=== PATIENT | female | born 1980 | race Caucasian/White ===

== ENCOUNTER 2021-09-10 14:06 | Outpatient (REF) | payer MEDICAID, SELFPAY ==
--- NOTE | ~2021-09-10 | XR_ITS ---
EXAMINATION: XR FOOT, RIGHT CLINICAL INFORMATION: Pain in right foot COMPARISON: None TECHNIQUE: AP, lateral, and oblique views of the right foot. FINDINGS: Alignment of the right foot is normal. A posterior calcaneal spur is seen at the insertion of the Achilles tendon. Mild narrowing of the first MTP joint with a small periarticular calcification. No erosions. Mild deformity at the head of the fifth proximal phalanx laterally with a possible small erosion. No other focal findings identified. XR/XR foot RT min 3V IMPRESSION: Mild degenerative changes are seen at the first MTP joint and possible small erosion at the lateral margin of the fifth proximal phalanx distally. No acute osseous findings are seen.
== END 2021-09-10 14:07 | disposition home or self-care (01) ==
LOC: HO.XRAY 14:06
PROVIDERS: PCP Internal Medicine; Visit Provider Internal Medicine
DX: M79.671 Pain in right foot (principal)
CPT/HCPCS: 73630

== ENCOUNTER 2021-11-25 12:27 | Outpatient (REF) | payer MEDICAID, SELFPAY ==
--- NOTE | ~2021-11-25 | MM_ITS ---
EXAMINATION: MM SCREENING DIGITAL BREAST TOMOSYNTHESIS, BILATERAL CLINICAL INFORMATION: Screening. Asymptomatic. The lifetime risk of breast cancer based on the Tyrer-Cuzick Model is 21.9%. Additional annual screening with breast MRI may be of benefit in women with a score of 20% or greater. COMPARISON: Mammography: None TECHNIQUE: Digital breast tomosynthesis is performed in both the craniocaudal and mediolateral oblique views along with computer-aided detection (CAD). Synthesized 2D images are generated from the tomosynthesis. FINDINGS: The breasts are heterogeneously dense, which may obscure small masses (ACR BI-RADS breast composition Category c). No abnormal mass or grouping of calcifications about the right breast is identified. In the retroareolar region of the left breast is question of poorly marginated asymmetry for which spot compression view and possible ultrasound is recommended. This likely represents superimposition of fibroglandular tissue. MM/MM tomosynthesis screening BI IMPRESSION: Left retroareolar density for further evaluation as described. ASSESSMENT: BI-RADS 0: Incomplete - Need Additional Imaging Evaluation RECOMMENDATION: 1. Additional views of the left breast 2. Targeted ultrasound if warranted after review of the additional views. 3. Radiology department staff will contact the patient for additional imaging. This patient's information was entered into a reminder system with a target due date for their next mammogram.
== END 2021-11-25 12:28 | disposition home or self-care (01) ==
LOC: HO.MAMMO 12:27
PROVIDERS: PCP Advanced Practice Midwife; Visit Provider Advanced Practice Midwife
DX: Z12.31 Encounter for screening mammogram for malignant neoplasm of breast (principal)
CPT/HCPCS: 77063; 77067

== ENCOUNTER 2021-11-26 22:37 | Emergency (ER) | payer MEDICAID, SELFPAY ==
[2021-11-26 22:52] VITALS: BP 128/79; PULSE 78; RESP 20; TEMP 36.1; O2SAT 97; BMI 33.0
[2021-11-27 00:38] LABS: COVID-19 Test Positive (Negative)
--- NOTE | 2021-11-27 00:48 | ED.URI ---
HPI - URI/Sore Throat General Chief Complaint: Upper Respiratory Symptoms Stated Complaint: Covid symptoms Source: patient Mode of arrival: ambulatory Limitations: no limitations History of Present Illness HPI Narrative: 41-year-old female presents with upper respiratory symptoms. Requesting COVID-19 testing. MD elicited complaint: cough and nasal congestion Onset (ago): day(s) Consistency: constant Severity: mild Description of mucous: clear Able to tolerate fluids by mouth: Yes Exacerbating factors: nothing Relieving factors: nothing Context: sick contacts Associated symptoms: chills, myalgias, headache, rhinorrhea, nasal congestion and cough Treatments prior to arrival: none Related Data Allergies Allergy/AdvReac Type Severity Reaction Status Date / Time No Known Allergies Allergy Verified 11/26/21 23:02 Review of Systems Review of Systems: Constitutional: positive Fever, positive Chills, positive fatigue, positive Malaise ENT/Mouth: positive sore throat, positive runny nose Eyes: No Discharge Cardiovascular: No Chest Pain, No SOB Respiratory: Positive Cough, No Sputum, No Wheezing, No Smoke Exposure, No Dyspnea Gastrointestinal: No Nausea, No Vomiting, No Diarrhea Genitourinary: no irregular bleeding, No Dysuria, No Urinary Frequency, No Hematuria, No Urinary Incontinence, No Urgency, No Flank Pain, Musculoskeletal: positive Myalgia Skin: No rash Neuro: Positive Headache Yes all other systems are reviewed and are negative FOR[facility]LY [facility] Past Medical History Attestation statement: The following information was validated with the patient. Source: old records reviewed Social History Social History Advance Directives: No Advance Directives Information Provided: No Physical Exam Vital Signs: Vital Signs: Last Vital Signs Temp 97.0 F 11/26/21 22:52 Pulse 78 11/26/21 22:52 Resp 20 11/26/21 22:52 BP 128/79 11/26/21 22:52 Pulse Ox 97 11/26/21 22:52 BMI result Body Mass Index 33.0 Appearance: Alert. Oriented X3. No acute distress. Eyes: Pupils equal, round and reactive to light. EOMI. Sclera nonicteric. ENT: Pharynx normal. Moist mucous membranes. Neck: Normal inspection. Neck supple. CVS: Normal heart rate and rhythm. Pulses normal. Respiratory: No respiratory distress. Breath sounds normal. Abdomen: Soft and nontender. Skin: Skin warm and dry. Normal skin color. Normal skin turgor. Extremities: No lower extremity edema. Gait well-balanced well coordinated. Neuro: No motor deficit. No sensory deficit. Cranial nerves 2-12 intact. Course Course Course Narrative: 41-year-old female presents with upper respiratory symptoms requesting COVID-19 testing. I evaluated this patient while she was in the emergency department waiting room. Even unlabored respirations, vital signs are stable and within normal limits. O2 sat 97% on room air. COVID-19 test is positive. Patient verbalized understanding of and agrees to plan of care discharge home. MDM - URI/Sore Throat Differential Diagnosis Differential diagnosis: Likely upper respiratory infection, sinusitis, viral infection, bronchitis, influenza and pharyngitis Medical Records Attestation: I reviewed the patient's medical records. Lab Data Attestation: I reviewed the patient's lab results. Labs: Lab Results 11/27/21 Range/Units 00:24 COVID-19 ([facility]) Positive A (Negative) COVID-19 Clin Com See Note Discharge Plan Discharge Clinical Impression: COVID-19 Patient Disposition: Home, Self-Care Instructions: Covid-19 Viral Syndrome and Novel Coronavirus (ED) Hey/Ath, COVID-19 (Coronavirus Disease 2019) (ED) Additional Instructions: You tested positive for COVID-19. Please maintain social isolation per State and Federal guidelines. Please take Tylenol 650 mg every 6 hours and Motrin 600 mg every 6 hours as needed for pain management and fever control. Please write down what time to take these medications to prevent accidental overdose. Thank you for choosing this emergency department for evaluation. Please follow-up with primary care physician as needed. Return to the emergency department for any new, concerning, or worsening symptoms. Stand Alone Forms: Work/School Release
== END 2021-11-27 01:21 | disposition home or self-care (01) ==
PROVIDERS: Emergency Provider Student in an Organized Health Care Education/Training Program; PCP Internal Medicine
DX: U07.1 COVID-19 (principal)
CPT/HCPCS: 87635; 99283

== ENCOUNTER 2021-12-23 11:03 | Outpatient (REF) | payer MEDICAID, SELFPAY ==
--- NOTE | ~2021-12-23 | MM_ITS ---
EXAMINATION: MM DIAGNOSTIC DIGITAL BREAST TOMOSYNTHESIS, LEFT CLINICAL INFORMATION: Recall from baseline exam for question of focal asymmetric density retroareolar left breast. TC score 22%. COMPARISON: Mammography: 11/25/2021 (baseline). TECHNIQUE: Digital breast tomosynthesis is performed. 2D images are generated from the tomosynthesis. The following views are obtained: Spot CC, spot MLO. FINDINGS: There are scattered areas of fibroglandular density (ACR BI-RADS breast composition Category b). Breast tissue composition borders on heterogeneously dense. The additional views show no underlying asymmetric density, mass, architectural abnormality. No focal duct ectasia. Results are discussed with the patient and her at time of visit. MM/MM tomosynthesis added views L IMPRESSION: No mammographic evidence of malignancy. ASSESSMENT: BI-RADS 1: Negative RECOMMENDATION: 1. Routine annual mammography screening. 2. The lifetime risk of breast cancer based on the Tyrer-Cuzick Model is 22%. Additional annual adjunct screening with breast MRI may be of benefit in women with a risk score of 20% or greater. This patient's information was entered into a reminder system with a target due date for their next mammogram.
== END 2021-12-23 11:04 | disposition home or self-care (01) ==
LOC: HO.MAMMO 11:03
PROVIDERS: Visit Provider Internal Medicine
DX: R92.2 Inconclusive mammogram (principal)
CPT/HCPCS: 77061; 77065

== ENCOUNTER → 2022-08-02 13:05 | Outpatient (BNVA) | payer MEDICAID, SELFPAY | PROVIDERS: PCP Internal Medicine; Referring Provider Internal Medicine; Visit Provider Nurse Practitioner | DX: R19.7 Diarrhea, unspecified (principal); K21.9 Gastro-esophageal reflux disease without esophagitis; R10.10 Upper abdominal pain, unspecified | CPT/HCPCS: 99202 ==

== ENCOUNTER 2022-08-19 14:18 | Outpatient (REF) | payer MEDICAID, SELFPAY ==
[2022-08-19 14:34] LABS: MANUAL DIFF FLAG NO
[2022-08-19 15:06] LABS: Basophils Percent Auto 0.1 % (0-2); Eosinophils Absolute Auto 0.1 X10*3/uL (0.0-0.4); Eosinophils Percent Auto 1.5 % (0-4); Hematocrit 42.1 % (37.0-47.0); Imm Gran Abs Auto 0.02 X10*3/uL (0.00-0.03); Imm Gran Pct Auto 0.3 % (0.0-0.4); Lymphocytes Absolute Auto 3.6 X10*3/uL (1.2-4.9); Lymphocytes Percent Auto 44.6 % (20-40); Mean Corpuscular HGB Conc 33.3 g/dl (31.0-35.0); Mean Corpuscular Hemoglobin 30.2 pg (27.0-33.0); Mean Corpuscular Volume 90.7 fL (80.0-98.0); Monocytes Absolute Auto 0.5 X10*3/uL (0.1-1.2); Monocytes Percent Auto 6.5 % (2-11); Neutrophils Absolute Auto 3.8 x10*3/uL (2.0-8.3); Platelet Count 208 X10*3/uL (160-400); Red Blood Count 4.64 X10*6/uL (4.20-5.50); Red Cell Distribution Width 12.3 % (11.0-16.0)
[2022-08-19 15:28] LABS: Alanine Aminotransferase 20 U/L (0-31); Albumin Level 4.7 g/dL (3.5-5.0); Alkaline Phosphatase 70 U/L (39-117); Anion Gap 16 (12-20); Aspartate Amino Transferase 24 U/L (5-31); Bilirubin Total 0.3 mg/dL (0.0-1.0); Blood Urea Nitrogen 12 mg/dL (9-16); C Reactive Protein 0.28 mg/dL (< or = 0.50); Calcium 9.9 mg/dL (8.4-10.2); Carbon Dioxide 24 mmol/L (22-29); Chloride 103 mmol/L (96-108); Estimated Glomerular Filt Rate > 60; Glucose Random 94 mg/dL (60-115); Potassium 3.7 mmol/L (3.3-5.1); Sodium 139 mmol/L (135-145); Total Protein 8.1 g/dL (6.5-8.0)
[2022-08-19 15:45] LABS: TSH reflex Free T4 0.99 uIU/mL (0.32-4.0)
[2022-08-26 08:22] LABS: Transglutaminase IgA <1.0 U/mL
== END 2022-08-19 14:19 | disposition home or self-care (01) ==
LOC: HO.LAB 14:18
PROVIDERS: PCP Internal Medicine; Visit Provider Nurse Practitioner
DX: R19.7 Diarrhea, unspecified (principal)
CPT/HCPCS: 36415; 80053; 84443; 85025; 86140; 86364; 87338

== ENCOUNTER → 2022-08-26 15:27 | Outpatient (BNVA) | payer MEDICAID, SELFPAY | PROVIDERS: PCP Internal Medicine; Visit Provider Nurse Practitioner | DX: R19.7 Diarrhea, unspecified (principal); K21.9 Gastro-esophageal reflux disease without esophagitis; R10.10 Upper abdominal pain, unspecified | CPT/HCPCS: 99212 ==

== ENCOUNTER → 2022-09-23 15:31 | Outpatient (BNVA) | payer MEDICAID, SELFPAY | PROVIDERS: PCP Internal Medicine; Visit Provider Nurse Practitioner | DX: K21.9 Gastro-esophageal reflux disease without esophagitis (principal); R19.7 Diarrhea, unspecified; R10.13 Epigastric pain | CPT/HCPCS: 99212 ==

== ENCOUNTER 2022-11-28 12:46 | Outpatient (REF) | payer MEDICAID, SELFPAY ==
--- NOTE | ~2022-11-28 | MM_ITS ---
EXAMINATION: MM SCREENING DIGITAL BREAST TOMOSYNTHESIS, BILATERAL CLINICAL INFORMATION: Screening. Asymptomatic. The lifetime risk of breast cancer based on the Tyrer-Cuzick Model is 29.8%. Additional annual screening with breast MRI may be of benefit in women with a score of 20% or greater. COMPARISON: Mammography: December 23, 2021 and November 25, 2021 TECHNIQUE: Digital breast tomosynthesis is performed in both the craniocaudal and mediolateral oblique views along with computer-aided detection (CAD). Synthesized 2D images are generated from the tomosynthesis. FINDINGS: The breasts are heterogeneously dense, which may obscure small masses (ACR BI-RADS breast composition Category c). There are no significant masses, abnormal calcifications, or other abnormalities. MM/MM tomosynthesis screening BI IMPRESSION: No significant changes from prior exam. ASSESSMENT: BI-RADS 1: Negative RECOMMENDATION: Routine annual mammography screening. Consider screening breast MRI. This patient's information was entered into a reminder system with a target due date for their next mammogram.
== END 2022-11-28 12:47 | disposition home or self-care (01) ==
LOC: HO.MAMMO 12:46
PROVIDERS: PCP Internal Medicine; Visit Provider Advanced Practice Midwife
DX: Z12.31 Encounter for screening mammogram for malignant neoplasm of breast (principal)
CPT/HCPCS: 77063; 77067

== ENCOUNTER 2023-02-27 13:47 | Outpatient (REF) | payer MEDICAID, SELFPAY ==
--- NOTE | ~2023-02-27 | MR_ITS ---
EXAMINATION: MR SHOULDER WITHOUT CONTRAST, RIGHT CLINICAL INFORMATION: Right shoulder pain COMPARISON: None available. TECHNIQUE: MRI of the shoulder without contrast was performed on a high-field scanner. FINDINGS: ROTATOR CUFF: Intact. No muscle atrophy or fatty infiltration. BICEPS: Normal. CORACOACROMIAL ARCH: The undersurface of the acromion is curved with a subacromial spur. Mild acromioclavicular osteoarthritis. LABRUM/CAPSULE: Normal. GLENOHUMERAL JOINT/MARROW: No joint effusion or focal articular cartilage defect. There is a nonaggressive appearing lesion of the humeral metaphysis measuring 2.6 x 2.2 x 2.9 cm. This is heterogeneously T2 hyperintense with stippled foci of low signal and a circumscribed, lobulated border with no surrounding marrow edema or other aggressive imaging features. The appearance is typical of an enchondroma. MR/MR shoulder RT wo con IMPRESSION: 1. No rotator cuff tear. 2. Small subacromial spur. 3. Mild acromioclavicular osteoarthritis. 4. There is a 2.9 cm low-grade chondroid lesion/enchondroma of the proximal humerus with no aggressive imaging features.
== END 2023-02-27 13:48 | disposition home or self-care (01) ==
LOC: HO.MRI 13:47
PROVIDERS: PCP Internal Medicine; Visit Provider Internal Medicine
DX: M25.511 Pain in right shoulder (principal); G89.29 Other chronic pain
CPT/HCPCS: 73221

== ENCOUNTER 2024-02-12 12:34 | Outpatient (REF) | payer MEDICAID, SELFPAY ==
--- NOTE | ~2024-02-12 | MM_ITS ---
EXAMINATION: MM SCREENING DIGITAL BREAST TOMOSYNTHESIS, BILATERAL CLINICAL INFORMATION: Screening. Asymptomatic. COMPARISON: Mammography: This study is compared with prior exams dating back to 2021. TECHNIQUE: Digital breast tomosynthesis is performed in both the craniocaudal and mediolateral oblique views along with computer-aided detection (CAD). Synthesized 2D images are generated from the tomosynthesis. FINDINGS: The breasts are heterogeneously dense, which may obscure small masses (ACR BI-RADS breast composition Category c). There are no significant masses, abnormal calcifications, or other abnormalities. MM/MM tomosynthesis screening BI IMPRESSION: No mammographic evidence of malignancy. ASSESSMENT: BI-RADS BI-RADS 1 - Negative RECOMMENDATION: Routine annual mammography screening. 1 year F/U This examination should not preclude the clinical evaluation of a suspicious palpable abnormality. This patient's information was entered into a reminder system with a target due date for their next mammogram.
== END 2024-02-12 12:35 | disposition home or self-care (01) ==
LOC: HO.MAMMO 12:34
PROVIDERS: PCP Internal Medicine; Visit Provider Internal Medicine
DX: Z12.31 Encounter for screening mammogram for malignant neoplasm of breast (principal)
CPT/HCPCS: 77063; 77067

== ENCOUNTER → 2024-02-12 13:00 | Outpatient (BNV) | payer MEDICAID, SELFPAY | PROVIDERS: PCP Internal Medicine; Visit Provider Radiology Diagnostic Radiology | DX: Z12.31 Encounter for screening mammogram for malignant neoplasm of breast (principal) | CPT/HCPCS: 77063; 77067 ==

== ENCOUNTER 2024-06-21 14:32 | Outpatient (REF) | payer MEDICAID, SELFPAY ==
[2024-06-21 15:40] LABS: MANUAL DIFF FLAG NO
[2024-06-21 16:15] LABS: Basophils Percent Auto 0.2 % (0-2); Eosinophils Absolute Auto 0.4 X10*3/uL (0.0-0.4); Eosinophils Percent Auto 4.1 % (0-4); Hematocrit 41.9 % (37.0-47.0); Hemoglobin 13.9 g/dl (12.0-16.0); Imm Gran Abs Auto 0.04 X10*3/uL (0.00-0.03); Imm Gran Pct Auto 0.4 % (0.0-0.4); Lymphocytes Absolute Auto 3.6 X10*3/uL (1.2-4.9); Lymphocytes Percent Auto 37.7 % (20-40); Mean Corpuscular HGB Conc 33.2 g/dl (31.0-35.0); Mean Corpuscular Hemoglobin 29.6 pg (27.0-33.0); Mean Corpuscular Volume 89.1 fL (80.0-98.0); Mean Platelet Volume 9.4 fL (9.4-12.3); Monocytes Absolute Auto 0.7 X10*3/uL (0.1-1.2); Monocytes Percent Auto 7.5 % (2-11); Neutrophils Absolute Auto 4.8 x10*3/uL (2.0-8.3); Neutrophils Percent Auto 50.1 % (45-73); Platelet Count 239 X10*3/uL (160-400); Red Cell Distribution Width 12.1 % (11.0-16.0); White Blood Count 9.5 X10*3/uL (4.8-10.8)
[2024-06-21 16:40] LABS: Alanine Aminotransferase 27 U/L (0-31); Albumin Level 4.5 g/dL (3.5-5.0); Alkaline Phosphatase 65 U/L (39-117); Anion Gap 14 (12-20); Aspartate Amino Transferase 25 U/L (5-31); Bilirubin Total 0.3 mg/dL (0.0-1.0); Blood Urea Nitrogen 16 mg/dL (9-16); Calcium 10.4 mg/dL (8.4-10.2); Carbon Dioxide 24 mmol/L (22-29); Chloride 107 mmol/L (96-108); Estimated Glomerular Filt Rate > 60; Glucose Random 106 mg/dL (60-115); Potassium 4.2 mmol/L (3.3-5.1); Sodium 141 mmol/L (135-145)
== END 2024-06-21 14:33 | disposition home or self-care (01) ==
LOC: HO.LAB 14:32
PROVIDERS: PCP Internal Medicine; Visit Provider Nurse Practitioner
DX: Z01.818 Encounter for other preprocedural examination (principal); K21.9 Gastro-esophageal reflux disease without esophagitis; R19.7 Diarrhea, unspecified; R10.10 Upper abdominal pain, unspecified
CPT/HCPCS: 36415; 80053; 85025; 99212

== ENCOUNTER 2024-06-21 14:32 | Outpatient (AMB) | payer MEDICAID, SELFPAY ==
--- NOTE | 2024-06-21 14:34 | MHC.OFFVIS ---
Vital Signs 06/21/24 14:42 Height 5 ft 6 in Weight 228 lb BMI 36.8 BP 141/83 H Blood Pressure Location Lt brachial Position Sitting Pulse 80 Intake Visit Reasons: Follow Up Diarrhea Intake Note: Marianne presents to in office visit today in follow up of diarrhea. CC: Patient states that she has not been able to come to her appointments because she first had a shoulder injury and last year she fell and fractured her left foot. She has been having a lot of pain and taking ibuprofen, Excedrin, and gabapentin. She states that she is doing worst from stomach d/t taking so m any medications for pain. 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 Allergies sulfamethoxazole [From Bactrim] Allergy (Severe, Verified 08/08/24 10:12) rash trimethoprim [From Bactrim] Allergy (Severe, Verified 08/08/24 10:12) rash acetaminophen [From Percocet] Adverse Reaction (Severe, Verified 08/08/24 10:12) Fainting naproxen Adverse Reaction (Severe, Verified 08/08/24 10:12) abdominal pain omeprazole Adverse Reaction (Severe, Verified 08/08/24 10:12) Diarrhea oxycodone [From Percocet] Adverse Reaction (Severe, Verified 08/08/24 10:12) Fainting septra Allergy (Severe, Uncoded 08/08/24 10:12) rash HPI HPI Follow Up Diarrhea: Details: Assessment & Plan (1) GERD (gastroesophageal reflux disease): ?Code(s): K21.9 - Gastro-esophageal reflux disease without esophagitis ?Plan: She continues to do well on her pantoprazole. 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 I reprint it for her. We were to go over the RAST panel, but it is not found in the computer. I will have my staff look in to this. ROV 3 mos. (2) Diarrhea: ?Comment: She may have been in response to omeprazole as well as some other variables ?Code(s): R19.7 - Diarrhea, unspecified (3) Upper abdominal pain: ?Code(s): R10.10 - Upper abdominal pain, unspecified TODAY'S VISIT She had a dislocated shoulder last visit and she fell in the middle of the night and fx her left ankle. She has had to take motrin for her ankle and this is upsetting her stomach. Bowels still frequent but not fecal incontinence, no CIC. Still has to take excedrin for migraines. Will get EGD to check. Asthma well controlled and some hx of bradycardia in response to some medications. NO ID problems. NO FHX of known stomach cancer or esophageal cancer. Will increase protonix to bid and add carafate 1 tab q noon. ROV 6 weeks. PFSH Medical History Heart murmur Migraine COVID-19 Surgical History (Updated 08/08/24 @ 10:15 by Mariza Mcneill RN) Hx of dilation and curettage Hx of tubal ligation History of ear surgery Family History Family/Other Breast cancer Maternal Grandmother Ovarian cancer Father Heart abnormality Social History Are you a primary medical care evaluation specialist to a significant other at home: No Do you presently have visiting nurse or other home services: No Alcohol intake: never Patient Tobacco Use Status: Never used Tobacco Have you been hit, kicked, punched, or otherwise hurt by someone within the past year? If so, by whom?: No Are you DNR?: No Advance Directives: No Advance Directives Information Provided: Yes Recently lost weight without trying: No Nutrition Risks: No Nutritional Risk Review of Systems Const Denies fatigue, Denies fever(s), Denies night sweats, Denies poor appetite, Reports weight gain and Denies weight loss ENT Reports Normal hearing present, Denies dental pain, Denies dysphagia, Denies hearing loss, Denies mouth pain, Denies odynophagia, Denies throat swelling, Denies tongue swelling and Reports other (Dentition adequate) Card Reports no additional complaints Resp Reports no additional complaints GI Details: Reports abdominal pain, Denies melena, Denies bloating, Denies hematochezia, Denies constipation, Denies GI cramping, Denies dysphagia, Denies excessive flatus, Denies early satiety, Reports heartburn, Reports diarrhea, Reports loose stools, Denies nausea, Denies odynophagia, Denies vomiting and Denies hematemesis Skin/Breast Denies pruritus, Denies lesions, Denies rash and Denies jaundice Neuro Reports Normal hearing present and Denies Abnormal speech present Endo Denies fatigue Aller/Immun Denies throat swelling and Denies tongue swelling Physical Exam Vital Signs: Last Vital Signs Pulse 80 06/21/24 14:42 BP 141/83 H 06/21/24 14:42 BMI result Body Mass Index 36.8 Const General: cooperative, no acute distress, well developed and well groomed Nutritional Appearance: well nourished and obese Orientation/consciousness: oriented to person, oriented to place and oriented to time Limitations: No language barrier HEENT Head: Yes normocephalic and Yes atraumatic Eyes General: appearance normal, both eyes and all related structures Pupils: Equal, round and reactive pupils present Neck Neck: Yes normal visual inspection and Yes no lymphadenopathy Thyroid: Thyroid normal Resp Effort & Inspection: normal respiratory effort and able to speak in complete sentences Auscultation: clear to auscultation bilaterally Cardio Rate: regular rate Rhythm: regular rhythm Heart sounds: Normal, physiologic split S2 sound present Peripheral pulses: radial pulses present and posterior tibial pulses present GI Inspection: No distended, No Abdominal panniculus present and Yes obesity Palpation (GI): Soft to palpation, nontender, no guarding, not rigid and No hepatosplenomegaly present Percussion: Yes normal to percussion Auscultation: normal bowel sounds Rectal Exam - Female: deferred Skin General skin exam: no rashes or lesions noted, turgor normal, skin not dry, no jaundice, No spider nevi and no striae Rashes: no rashes Nails: normal Neuro General: oriented to person, oriented to place and oriented to time Cranial nerves: Yes Equal, round and reactive pupils present and Yes Normal hearing present Speech: No Abnormal speech present Extrem General: Yes normal to inspection, No clubbing, No cyanosis and No edema Psych Appearance: grossly normal and well kempt Mental Status: mental status grossly normal Speech and movement: Normal speech and movement present Affect: normal affect Attitude: cooperative Thought process: Normal thought process present and not confabulating Thought content: Normal thought content present Insight: Limited insight present (Psych) Judgement: Limited judgement present (Psych) Assessment & Plan Assessment & Plan (1) GERD (gastroesophageal reflux disease): Code(s): K21.9 - Gastro-esophageal reflux disease without esophagitis Category: Medical (2) Diarrhea: Comment: She may have been in response to omeprazole as well as some other variables Code(s): R19.7 - Diarrhea, unspecified Category: Medical (3) Upper abdominal pain: Code(s): R10.10 - Upper abdominal pain, unspecified Category: Medical (4) Pre-op examination: Code(s): Z01.818 - Encounter for other preprocedural examination Category: Medical Plan She had a dislocated shoulder last visit and she fell in the middle of the night and fx her left ankle. She has had to take motrin for her ankle and this is upsetting her stomach. Bowels still frequent but not fecal incontinence, no CIC. Still has to take excedrin for migraines. Will get EGD to check. Asthma well controlled and some hx of bradycardia in response to some medications. NO ID problems. NO FHX of known stomach cancer or esophageal cancer. Will increase protonix to bid and add carafate 1 tab q noon. ROV 6 weeks. Orders: Orders EGD - GI Use Only 06/21/24 R10.10 - Upper abdominal pain, unspecified, K21.9 - Gastro-esophageal reflux disease without esophagitis Comprehensive Met. Panel 06/21/24 Z01.818 - Encounter for other preprocedural examination Complete Blood Count Auto Diff 06/21/24 Z.818 - Encounter for other preprocedural examination Medications: New sucralfate (Carafate) 1 g PO QNOON 30 tabs 3RF Refilled pantoprazole 40 mg PO BID 60 tabs 6RF K21.9 - Gastro-esophageal reflux disease without esophagitis Coding Level of Care Code Est Pt Level 4 (22119) Diagnoses GERD (gastroesophageal reflux disease) K21.9 Diarrhea R19.7 Upper abdominal pain R10.10 Pre-op examination Z01.8
[2024-06-21 14:42] VITALS: BP 141/83; PULSE 80; BMI 36.8
== END 2024-06-21 15:20 | disposition home or self-care (01) ==
PROVIDERS: PCP Internal Medicine; Visit Provider Nurse Practitioner
DX: K21.9 Gastro-esophageal reflux disease without esophagitis (principal); R19.7 Diarrhea, unspecified; R10.10 Upper abdominal pain, unspecified; Z01.818 Encounter for other preprocedural examination
CPT/HCPCS: 99214

== ENCOUNTER 2024-08-08 09:11 | Day surgery (SDC) | payer OTHER, SELFPAY ==
[2024-08-08 09:40] VITALS: BMI 37.7
--- NOTE | 2024-08-08 09:46 | P.CONAN_ITS ---
PENDING SALE TO [facility] Active Problems Active Problems: All Active Problems Pre-op examination (Acute) Upper abdominal pain (Acute) Diarrhea (Acute) Hard of hearing (Acute) Obesity (Acute) GERD (gastroesophageal reflux disease) (Acute) Allergic rhinitis (Acute) Asthma (Acute) Past Medical History Medical History COVID-19 Heart murmur Migraine Family History Family History Family/Other Breast cancer Maternal Grandmother Ovarian cancer Father Heart abnormality Family history of problems with anesthesia: No Surgical History Surgical History History of ear surgery History of Problems with Anesthesia: No Social History Social History Alcohol intake: never Patient Tobacco Use Status: Never used Tobacco Advance Directives: No Advance Directives Information Provided: Yes Meds Allergies Allergy/AdvReac Type Severity Reaction Status Date / Time sulfamethoxazole Allergy Severe rash Verified 06/21/24 15:00 [From Bactrim] trimethoprim [From Bactrim] Allergy Severe rash Verified 06/21/24 15:00 acetaminophen [From Percocet] AdvReac Severe Fainting Verified 06/21/24 15:00 naproxen AdvReac Severe abdominal Verified 06/21/24 15:00 pain omeprazole AdvReac Severe Diarrhea Verified 06/21/24 15:00 oxycodone [From Percocet] AdvReac Severe Fainting Verified 06/21/24 15:00 septra Allergy Severe rash Uncoded 08/02/22 13:17 Active Medications: Current Medications Naloxone HCl (Naloxone Hcl 0.4 Mg/Ml Vial) 0.04 mg IVPUSH Q5M PRN PRN Reason: Excessive sedation or RR < 8 Home Medications ?Medication ?Instructions ?Recorded ?Confirmed ?Last Taken ?Type albuterol sulfate 90 mcg/actuation 2 puff inhalation Q4-6H PRN 08/02/22 Unknown History aerosol inhaler (ProAir HFA) loratadine 10 mg tablet 10 mg PO DAILY 08/02/22 Unknown History multivitamin 1 tab PO DAILY 08/26/22 Unknown History ibuprofen 600 mg tablet 1,200 mg PO Q8H PRN pain 09/23/22 Unknown History xfqnsds-puahhhvkvmbiz-abhehehm 250 2 tab PO Q6H PRN 06/21/24 Unknown History mg-250 mg-65 mg tablet (Excedrin Extra Strength) gabapentin 300 mg capsule 300 mg PO BEDTIME 06/21/24 Unknown History Exam Height,Weight and Vital Signs: Height 5 ft 6 in Weight 105.914 kg Airway Mallampati Class: II TM Dist: >3cm Neck ROM: Full Heart: rrr Lungs: cta Assessment and Plan Assessment Anesthesia Assessment: Anesthesia Plan Discussed and Chart Reviewed Final Anesthetic Review Family History of Problems with Anesthesia: No History of Problems with Anesthesia: No NPO: Yes ASA Class: II Final Preanesthetic Review: No Changes in Pt Med Stat, Meds/Allgs Chart Reviewed and Consent Obtained/Reviewed Patient Risk: Low Procedure Risk: Intermediate Anesthetic Plan Anesthetic Plan: MAC: Disposition: Standard PACU
[2024-08-08 09:49] LABS: UPreg QC Valid YES; Urine Pregnancy NEGATIVE (NEGATIVE)
--- NOTE | 2024-08-08 09:55 | MHC.SHP ---
Pre-Procedural Eval Section A - 24 Hr Update-Section A only Date of Service: 08/08/24 Section B - Complete if H&P > 30 days Chief Complaint: Upper abdominal pain,gerd Relevant Family History (Specify if Yes): No Relevant Social History: None Present Medications: see Short Stay Collaborative assessment Medical History: Significant History (COVID-19 Heart murmur Migraine) History of Previous Operations: Relevant previous surgery/procedure and date(s) ( History of ear surgery) Allergies: Allergies Allergy/AdvReac Type Severity Reaction Status Date / Time sulfamethoxazole Allergy Severe rash Verified 06/21/24 15:00 [From Bactrim] trimethoprim [From Bactrim] Allergy Severe rash Verified 06/21/24 15:00 acetaminophen [From Percocet] AdvReac Severe Fainting Verified 06/21/24 15:00 naproxen AdvReac Severe abdominal Verified 06/21/24 15:00 pain omeprazole AdvReac Severe Diarrhea Verified 06/21/24 15:00 oxycodone [From Percocet] AdvReac Severe Fainting Verified 06/21/24 15:00 septra Allergy Severe rash Uncoded 08/02/22 13:17 Review of Systems Sugical H&P ROS: Negative: Constitution, Cardiovascular, Respiratory, Neurological, Psychiatric, Hem-Onc, Allergic/Immunologic, Gastrointestinal, Genitourinary, Musculoskeletal, Integumentary, Endocrine and Eyes/Ears/Nose/Throat Exam Surgical H&P Exam: Normal: HEENT, Normal: Heart, Normal: Lungs, Normal: Extremities, Normal: Abdomen, Normal: Skin and Normal: Neurological Plan Diagnosis/Plan: Unchanged I have reviewed the history and physical and performed a pertinent physical examination on my patient. No changes have occurred unless specified. Time Spent With Patient Time: Total time managing care of this patient today ____ minutes.
[2024-08-08] MEDS: Lactated Ringers 1,000 ML 80 ML IVCONT (10:11)
[2024-08-08 10:12] VITALS: BP 147/88; PULSE 73; RESP 16; TEMP 36.2; O2SAT 97
--- NOTE | 2024-08-08 11:19 | P.OP_ITS ---
Operative Note Operative Note Date of Service: 08/08/24 Narrative: Procedure: Esophagogastroduodenoscopy Endoscopist: An Lynne MD Indication: Abd pain, diarrhea Anesthesia Provider: Yesenia Mcneill CRNA Anesthesia Type: MAC ?? EGD Procedure:?? The procedure, indications, preparation and potential complications were r eviewed with the patient, who indicated understanding and gave written informed consent to proceed. A physical exam was performed. The endoscope was introduced through the mouth, and advanced to the second part of duodenum. The mucosa was carefully examined on slow withdrawal of the endoscope. The patient tolerated the procedure well. There were no immediate complications.? ? EGD Findings:? * Esophagus:? Mild linear furrowing was noted in the esophagus. The Z line was at 39 cm. Middle and lower esophagus forceps biopsies were obtained to rule out eosinophilic esophagitis. * Stomach:? Erythema and scant heme noted in the antrum. Retroflexion performed in the cardia. Random cold forceps gastric biopsies were taken to rule out H Pylori infection. * Duodenum:? Normal mucosa was noted in the whole of the examined duodenum. Cold forcep biopsies were taken from duodenal bulb and second portion of the duodenum to rule out celiac sprue. ? EGD Impressions:? * Linear furrowing ? EoE (biopsy) * Gastritis (biopsy) * Normal duodenum (biopsy) ?? Recommendations:?? * Follow biopsy results. Our office will call or send a letter with results within 7-10 days. * Continue PPI therapy. * If H pylori +, patient will be prescribed eradication therapy followed by test of cure. * Avoid NSAIDs. * Further testing for chronic diarrhea ordered. Consider colonoscopy for luminal evaluation. Above has been reviewed with the patient.
[2024-08-08 11:52] VITALS: BP 106/63; PULSE 72; RESP 16; TEMP 36.5; O2SAT 97
[2024-08-08 12:07] VITALS: BP 124/74; PULSE 60; RESP 16; O2SAT 98
[2024-08-08 12:22] VITALS: BP 122/73; PULSE 66; RESP 16; TEMP 36.4; O2SAT 100
[2024-08-08 12:34] VITALS: BP 126/72; PULSE 64; RESP 16; TEMP 36.4; O2SAT 100
== END 2024-08-08 14:13 | disposition home or self-care (01) ==
PROVIDERS: Anesthesiology; PCP Internal Medicine; Visit Provider Internal Medicine
PROC: 0DJ08ZZ Inspection of Upper Intestinal Tract, Via Natural or Artificial Opening Endoscopic (ICD-10-PCS; CPT 43235; principal; 2024-08-08 13:20)
DX: K29.50 Unspecified chronic gastritis without bleeding (principal); R19.7 Diarrhea, unspecified; K31.7 Polyp of stomach and duodenum; K21.9 Gastro-esophageal reflux disease without esophagitis; Q39.8 Other congenital malformations of esophagus; J45.909 Unspecified asthma, uncomplicated; R01.1 Cardiac murmur, unspecified; G43.909 Migraine, unspecified, not intractable, without status migrainosus; Z79.899 Other long term (current) drug therapy; Z88.2 Allergy status to sulfonamides; Z88.8 Allergy status to other drugs, medicaments and biological substances
CPT/HCPCS: 43239; 81025; 88305; 88313; 88342; J1596; J2704

== ENCOUNTER → 2024-08-08 09:11 | Outpatient (BNV) | payer OTHER, SELFPAY | PROVIDERS: PCP Internal Medicine; Visit Provider Internal Medicine | DX: K21.9 Gastro-esophageal reflux disease without esophagitis (principal); K29.70 Gastritis, unspecified, without bleeding; K31.7 Polyp of stomach and duodenum; R19.7 Diarrhea, unspecified | CPT/HCPCS: 43239 ==

== ENCOUNTER → 2024-09-20 12:04 | Outpatient (BNVA) | payer OTHER, SELFPAY | PROVIDERS: PCP Internal Medicine; Visit Provider Nurse Practitioner | DX: K21.9 Gastro-esophageal reflux disease without esophagitis (principal); R19.7 Diarrhea, unspecified; R10.10 Upper abdominal pain, unspecified; Z91.81 History of falling | CPT/HCPCS: 99212 ==

== ENCOUNTER → 2024-09-20 12:04 | Outpatient (AMB) | payer OTHER, SELFPAY ==
--- NOTE | 2024-09-20 12:06 | A.OFFVIS_ITS ---
Vital Signs 09/20/24 12:16 Height 5 ft 6 in Weight 231 lb 14.821 oz BMI 37.4 BP 124/78 Blood Pressure Location Rt brachial Position Sitting Pulse 76 Pulse Source Pulse Oximeter Pulse Oximetry (%) 96 Oxygen Delivery Method Room Air Intake Visit Reasons: 6 week follow up/ r/s from 08/09 Intake Note: PRESCRIPTIONS LAST GENERATED sucralfate 1 gram tablet?(Carafate)?1 g PO QNOON 30 tabs 3RF Tee,06/21/24 15:11 (Transmitted) pantoprazole 40 mg tablet,delayed release?40 mg PO BID 60 tabs 6RF Tee,06/21/24 15:07 (Transmitted) Pt has stopped taking carafate due to abd pain. Relevant Flags or Indicators ? 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 Jameel Marianne presents in office today for a scheduled FUV s/p EGD. CC; Pt reports recent labs prior to EGD. Pt denies any diagnostics. Relevant GI Sx as reported per pt? Fecal abnormalities o?? Constipation o?? Diarrhea -- more soft stools than complete diarrhea. ? Abdominal Pain - generalized. ? Early satiety ? Bloating ? Abdominal distention ? Hx of any recent surgeries? Procedure w/ Dr. Lynne Allergies sulfamethoxazole [From Bactrim] Allergy (Severe, Verified 09/20/24 12:14) rash trimethoprim [From Bactrim] Allergy (Severe, Verified 09/20/24 12:14) rash acetaminophen [From Percocet] Adverse Reaction (Severe, Verified 09/20/24 12:14) Fainting naproxen Adverse Reaction (Severe, Verified 09/20/24 12:14) abdominal pain omeprazole Adverse Reaction (Severe, Verified 09/20/24 12:14) Diarrhea oxycodone [From Percocet] Adverse Reaction (Severe, Verified 09/20/24 12:14) Fainting septra Allergy (Severe, Uncoded 08/08/24 10:12) rash HPI HPI 6 week follow up/ r/s from 08/09: Details: She had a dislocated shoulder last visti and she fell in the middle of the night and fx her left ankle. She has had to take motrin for her ankle adn this is upsetting her stomach. Bowels still frequent but not fecal incontinence, no CIC. Still has to take excedrin for migraines. WIll get EGD to check. Asthma well controlled and some hx of bradycardia in response to some medications. NO ID problems. NO FHX of known stomach cancer or esophageal cancer. Will increase protonix to bid and add carafate 1 tab q noon. ROV 6 weeks. Assessment & Plan (1) GERD (gastroesophageal reflux disease): Code(s): K21.9 - Gastro-esophageal reflux disease without esophagitis Category: Medical (2) Diarrhea: Comment: She may have been in response to omeprazole as well as some other variables Code(s): R19.7 - Diarrhea, unspecified Category: Medical (3) Upper abdominal pain: Code(s): R10.10 - Upper abdominal pain, unspecified Category: Medical (4) Pre-op examination: Code(s): Z01.818 - Encounter for other preprocedural examination Category: Medical Orders: Orders EGD - GI Use Only Today K21.9 - Gastro-esophageal reflux disease without esophagitis, R10.10 - Upper abdominal pain, unspecified Comprehensive Met. Panel Today Z01.818 - Encounter for other preprocedural examination Complete Blood Count Auto Diff Today Z01.818 - Encounter for other preprocedural examination Medications: New sucralfate (Carafate) 1 g PO QNOON 30 tabs 3RF Refilled pantoprazole 40 mg PO BID 60 tabs 6RF K21.9 - Gastro-esophageal reflux disease without esophagitis LABS: Laboratory Tests 06/21/24 15:39 WBC 9.5 Hgb 13.9 Hct 41.9 Plt Count 239 Estimated GFR > 60 Total Bilirubin 0.3 AST 25 ALT 27 Alkaline Phosphatase 65 EGD 08/08/24 EGD Findings:? * Esophagus:? Mild linear furrowing was noted in the esophagus. The Z line was at 39 cm. Middle and lower esophagus forceps biopsies were obtained to rule out eosinophilic esophagitis. * Stomach:? Erythema and scant heme noted in the antrum. Retroflexion performed in the cardia. Random cold forceps gastric biopsies were taken to rule out H Pylori infection. * Duodenum:? Normal mucosa was noted in the whole of the examined duodenum. Cold forcep biopsies were taken from duodenal bulb and second portion of the duodenum to rule out celiac sprue. ? EGD Impressions:? * Linear furrowing ? EoE (biopsy) * Gastritis (biopsy) * Normal duodenum (biopsy)?? Recommendations:?? * Follow biopsy results. Our office will call or send a letter with results within 7-10 days. * Continue PPI therapy. * If H pylori +, patient will be prescribed eradication therapy followed by test of cure. * Avoid NSAIDs. * Further testing for chronic diarrhea ordered. Consider colonoscopy for luminal evaluation. BIOPSY Received: 08/08/24 Diagnosis A. Duodenum, biopsy: Duodenal mucosa with focal partial villous blunting and mildly increased intraepithelial lymphocytes. See comment. B. Stomach, random, biopsy: Oxyntic mucosa with mild chronic inactive inflammation; no Helicobacter organisms seen. C. Esophagus, lower, biopsy: Squamous epithelium within normal limits; no inflammation seen. D. Esophagus, middle, biopsy: Squamous epithelium within normal limits; no inflammation seen. Comment: The findings in part A raise the possibility of celiac disease (please correlate with clinical and laboratory findings); other etiologies would include infection, drug and peptic injury * Laboratory Tests 08/19/22 14:33 Tiss Transglutamin IgG 1.0 Tiss Transglutamin IgA <1.0 TODAY'S VISIT She tolerated the procedure well. She actually was aware of the results and started avoiding gluten on her own. It is too soon to tell how much this is going to affect her symptoms because it really is a big adjustment for her. We discussed joining a support group because this is where she will get the best advice of what gluten free foods or actually edible and what to avoid in terms of potential cross contamination which is always a difficult subject. Because of the diarrhea the endoscopist suggested a colonoscopy which of course we will order. The sucralfate upset her stomach but the pantoprazole seems to be helping her better in terms of general symptom control. Obviously we will continue this. I am going to order repeat TTE IgA and a RAST panel to try to exclude any other possible allergens contributing to her symptoms. Will have her follow-up after her colonoscopy. [facility] Medical History Heart murmur Migraine COVID-19 Surgical History Hx of dilation and curettage Hx of tubal ligation History of ear surgery Family History Family/Other Breast cancer Maternal Grandmother Ovarian cancer Father Heart abnormality Social History Are you a primary health care marketing specialist to a significant other at home: No Do you presently have visiting nurse or other home services: No Alcohol intake: never Patient Tobacco Use Status: Never used Tobacco Review of Systems Const Denies fatigue, Denies fever(s), Denies night sweats, Denies poor appetite and Denies weight loss ENT Reports Normal hearing present, Denies dental pain, Denies dysphagia, Denies hearing loss, Denies mouth pain, Denies odynophagia, Denies throat swelling, Denies tongue swelling and Reports other (Dentition adequate) Card Reports no additional complaints Resp Reports no additional complaints GI Details: Denies abdominal pain, Denies melena, Reports bloating, Denies hematochezia, Denies constipation, Denies GI cramping, Denies dysphagia, Denies excessive flatus, Denies early satiety, Reports dyspepsia, Reports heartburn, Denies diarrhea, Reports loose stools, Denies nausea, Denies odynophagia, Denies vomiting and Denies hematemesis Skin/Breast Denies pruritus, Denies lesions, Denies rash and Denies jaundice Neuro Reports Normal hearing present and Denies Abnormal speech present Endo Denies fatigue Aller/Immun Denies throat swelling and Denies tongue swelling Physical Exam Vital Signs: Last Vital Signs Pulse 76 09/20/24 12:16 BP 124/78 09/20/24 12:16 Pulse Ox 96 09/20/24 12:16 Oxygen Delivery Method Room Air 09/20/24 12:16 BMI result Body Mass Index 37.4 Const General: cooperative, no acute distress, well developed and well groomed Nutritional Appearance: well nourished and obese Orientation/consciousness: oriented to person, oriented to place and oriented to time Limitations: No language barrier HEENT Head: Yes normocephalic and Yes atraumatic Eyes General: appearance normal, both eyes and all related structures Pupils: Equal, round and reactive pupils present Neck Neck: Yes normal visual inspection and Yes no lymphadenopathy Thyroid: Thyroid normal Resp Effort & Inspection: normal respiratory effort and able to speak in complete sentences Auscultation: clear to auscultation bilaterally Cardio Rate: regular rate Rhythm: regular rhythm Heart sounds: Normal, physiologic split S2 sound present Peripheral pulses: radial pulses present and posterior tibial pulses present GI Inspection: No distended, No Abdominal panniculus present and Yes obesity Palpation (GI): Soft to palpation, nontender, no guarding, not rigid and No hepatosplenomegaly present Percussion: Yes normal to percussion Auscultation: normal bowel sounds Rectal Exam - Female: deferred Skin General skin exam: no rashes or lesions noted, turgor normal, skin not dry, no jaundice, No spider nevi and no striae Rashes: no rashes Nails: normal Neuro General: oriented to person, oriented to place and oriented to time Cranial nerves: Yes Equal, round and reactive pupils present and Yes Normal hearing present Speech: No Abnormal speech present Extrem General: Yes normal to inspection, No clubbing, No cyanosis and No edema Psych Appearance: grossly normal and well kempt Mental Status: mental status grossly normal Speech and movement: Normal speech and movement present Affect: normal affect Attitude: cooperative Thought process: Normal thought process present and not confabulating Thought content: Normal thought content present Insight: Fair insight present (Psych) Judgement: Fair judgement present (Psych) Results Reviewed Results Reviewed: Laboratory Tests 06/21/24 15:39 WBC 9.5 Hgb 13.9 Hct 41.9 Plt Count 239 Estimated GFR > 60 Total Bilirubin 0.3 AST 25 ALT 27 Alkaline Phosphatase 65 EGD 08/08/24 EGD Findings:? * Esophagus:? Mild linear furrowing was noted in the esophagus. The Z line was at 39 cm. Middle and lower esophagus forceps biopsies were obtained to rule out eosinophilic esophagitis. * Stomach:? Erythema and scant heme noted in the antrum. Retroflexion performed in the cardia. Random cold forceps gastric biopsies were taken to rule out H Pylori infection. * Duodenum:? Normal mucosa was noted in the whole of the examined duodenum. Cold forcep biopsies were taken from duodenal bulb and second portion of the duodenum to rule out celiac sprue. ? EGD Impressions:? * Linear furrowing ? EoE (biopsy) * Gastritis (biopsy) * Normal duodenum (biopsy)?? Recommendations:?? * Follow biopsy results. Our office will call or send a letter with results within 7-10 days. * Continue PPI therapy. * If H pylori +, patient will be prescribed eradication therapy followed by test of cure. * Avoid NSAIDs. * Further testing for chronic diarrhea ordered. Consider colonoscopy for luminal evaluation. BIOPSY Received: 08/08/24 Diagnosis A. Duodenum, biopsy: Duodenal mucosa with focal partial villous blunting and mildly increased intraepithelial lymphocytes. See comment. B. Stomach, random, biopsy: Oxyntic mucosa with mild chronic inactive inflamma tion; no Helicobacter organisms seen. C. Esophagus, lower, biopsy: Squamous epithelium within normal limits; no inflammation seen. D. Esophagus, middle, biopsy: Squamous epithelium within normal limits; no inflammation seen. Comment: The findings in part A raise the possibility of celiac disease (please correlate with clinical and laboratory findings); other etiologies would include infection, drug and peptic injury * Laboratory Tests 08/19/22 14:33 Tiss Transglutamin IgG 1.0 Tiss Transglutamin IgA <1.0 Assessment & Plan Assessment & Plan (1) Upper abdominal pain: Code(s): R10.10 - Upper abdominal pain, unspecified Category: Medical (2) Diarrhea: Comment: She may have been in response to omeprazole as well as some other variables Code(s): R19.7 - Diarrhea, unspecified Category: Medical (3) GERD (gastroesophageal reflux disease): Code(s): K21.9 - Gastro-esophageal reflux disease without esophagitis Category: Medical (4) Celiac disease: Code(s): K90.0 - Celiac disease Category: Medical (5) Pre-op examination: Code(s): Z01.818 - Encounter for other preprocedural examination Category: Medical Plan She tolerated the procedure well. She actually was aware of the results and started avoiding gluten on her own. It is too soon to tell how much this is going to affect her symptoms because it really is a big adjustment for her. We discussed joining a support group because this is where she will get the best advice of what gluten free foods or actually edible and what to avoid in terms of potential cross contamination which is always a difficult subject. Because of the diarrhea the endoscopist suggested a colonoscopy which of course we will order. The sucralfate upset her stomach but the pantoprazole seems to be helping her better in terms of general symptom control. Obviously we will continue this. I am going to order repeat TTE IgA and a RAST panel to try to exclude any other possible allergens contributing to her symptoms. There are no prior problems with anesthesia or sedation. Her asthma is well controlled and she denies any cardiac problems. There are no infectious disease problems. There is no known family history of colon cancer or polyps. Will have her follow-up after her colonoscopy. COLONOSCOPY BIOPSY Orders: Orders Rast Allergen 09/20/24 K90.0 - Celiac disease Transglutaminase IgA 09/20/24 K90.0 - Celiac disease Transglutaminase Ab IgG 09/20/24 K90.0 - Celiac disease Colonoscopy - GI Use Only 09/20/24 R19.7 - Diarrhea, unspecified, Z01.818 - Encounter for other preprocedural examination Medications: New peg 3350-electrolytes 236-22.74-6.74 -5.86 gram (Golytely) until fecal effluent is clear; do not exceed a total volume of 2,000 mL 240 mL PO Q10M 4,000 mL 0RF 1 day Z12.11 - Encounter for screening for malignant neoplasm of colon bisacodyl (Dulcolax (bisacodyl)) 10 mg (2 x 5 mg) PO BEDTIME 4 tabs 0RF 2 days Coding Level of Care Code Est Pt Level 4 (55128) Diagnoses Upper abdominal pain R10.10 Diarrhea R19.7 GERD (gastroesophageal reflux disease) K21.9 Celiac disease K90.0 Pre-op examination Z01.818
[2024-09-20 12:16] VITALS: BP 124/78; PULSE 76; O2SAT 96; BMI 37.4
== END ==
LOC: HO.HGI 12:04
PROVIDERS: PCP Internal Medicine; Visit Provider Nurse Practitioner
DX: R10.10 Upper abdominal pain, unspecified (principal); R19.7 Diarrhea, unspecified; K21.9 Gastro-esophageal reflux disease without esophagitis; K90.0 Celiac disease; Z01.818 Encounter for other preprocedural examination
CPT/HCPCS: 99214

== ENCOUNTER 2024-12-04 12:21 | Outpatient (REF) | payer MEDICAID, SELFPAY ==
[2024-12-05 21:53] LABS: Transglutaminase Ab IgG <1.0 U/mL; Transglutaminase IgA <1.0 U/mL
== END 2024-12-04 12:22 | disposition home or self-care (01) ==
LOC: HO.LAB 12:21
PROVIDERS: PCP Internal Medicine; Visit Provider Nurse Practitioner
DX: K90.0 Celiac disease (principal)
CPT/HCPCS: 36415; 86003; 86364

== ENCOUNTER 2025-01-21 08:47 | Day surgery (SDC) | payer MEDICAID, SELFPAY ==
[2025-01-17 14:53] VITALS: BMI 37.4
--- NOTE | 2025-01-20 14:10 | P.CONAN_ITS ---
HPI - Anesthesia Eval Consult details Narrative: 44yo F for Colonoscopy PMFSH Active Problems Active Problems: All Active Problems Celiac disease (Acute) Pre-op examination (Acute) Upper abdominal pain (Acute) Diarrhea (Acute) Hard of hearing (Acute) Obesity (Acute) GERD (gastroesophageal reflux disease) (Acute) Allergic rhinitis (Acute) Asthma (Acute) Past Medical History Medical History (Updated 01/17/25 @ 14:51 by Katina Ochoa RN) Asthma Celiac disease GERD (gastroesophageal reflux disease) Heart murmur Migraine Family History Family History Family/Other Breast cancer Maternal Grandmother Ovarian cancer Father Heart abnormality Family history of problems with anesthesia: No Surgical History Surgical History (Updated 01/17/25 @ 14:50 by Katina Ochoa RN) History of esophagogastroduodenoscopy (EGD) Hx of dilation and curettage Hx of tubal ligation History of ear surgery History of Problems with Anesthesia: No Social History Social History Are you a primary assurance services manager health care to a significant other at home: No Do you presently have visiting nurse or other home services: No Alcohol intake: never Patient Tobacco Use Status: Never used Tobacco Meds Allergies Allergy/AdvReac Type Severity Reaction Status Date / Time sulfamethoxazole Allergy Severe rash Verified 09/20/24 12:14 [From Bactrim] trimethoprim [From Bactrim] Allergy Severe rash Verified 09/20/24 12:14 acetaminophen [From Percocet] AdvReac Severe Fainting Verified 09/20/24 12:14 naproxen AdvReac Severe abdominal Verified 09/20/24 12:14 pain omeprazole AdvReac Severe Diarrhea Verified 09/20/24 12:14 oxycodone [From Percocet] AdvReac Severe Fainting Verified 09/20/24 12:14 septra Allergy Severe rash Uncoded 08/08/24 10:12 Home Medications ?Medication ?Instructions ?Recorded ?Confirmed ?Last Taken ?Type albuterol sulfate 90 mcg/actuation 2 puff inhalation Q4-6H PRN Cold 08/02/22 01/17/25 Unknown History aerosol inhaler (ProAir HFA) Symptoms loratadine 10 mg tablet 10 mg PO DAILY 08/02/22 01/17/25 Unknown History multivitamin 1 tab PO DAILY 08/26/22 01/17/25 Unknown History paejrhb-ijulqipyrsxrg-nfgrthud 250 2 tab PO Q6H PRN Pain, Moderate 06/21/24 01/17/25 Unknown History mg-250 mg-65 mg tablet (Excedrin Extra Strength) gabapentin 300 mg capsule 300 mg PO BEDTIME 06/21/24 01/17/25 Unknown History acetaminophen 500 mg tablet 500 mg PO Q6H PRN mild pain 09/20/24 01/17/25 Unknown History vitamin B complex (Vitamins B 1 tab PO QAM 09/20/24 01/17/25 Unknown History Complex tablet) Exam Height,Weight and Vital Signs: Height 5 ft 6 in Weight 105.233 kg Assessment and Plan Assessment Anesthesia Assessment: Chart Reviewed Final Anesthetic Review Family History of Problems with Anesthesia: No History of Problems with Anesthesia: No
[2025-01-21 09:18] VITALS: BMI 34.7
[2025-01-21 09:20] VITALS: BP 118/79; PULSE 92; RESP 16; TEMP 36.6; O2SAT 94
[2025-01-21] MEDS: Lactated Ringers 1,000 ML 100 ML IVCONT (09:37)
--- NOTE | 2025-01-21 09:42 | MHC.SHP ---
Pre-Procedural Eval Section A - 24 Hr Update-Section A only Date of Service: 01/21/25 Section B - Complete if H&P > 30 days Chief Complaint: Diarrhea, unspecified Relevant Family History (Specify if Yes): No Relevant Social History: None Present Medications: see Short Stay Collaborative assessment Medical History: Significant History (Asthma Celiac disease GERD (gastroesophageal reflux disease) Heart murmur Migraine) History of Previous Operations: Relevant previous surgery/procedure and date(s) (History of esophagogastroduodenoscopy (EGD) Hx of dilation and curettage Hx of tubal ligation History of ear surgery) Allergies: Allergies Allergy/AdvReac Type Severity Reaction Status Date / Time sulfamethoxazole Allergy Severe rash Verified 01/21/25 09:18 [From Bactrim] trimethoprim [From Bactrim] Allergy Severe rash Verified 01/21/25 09:18 acetaminophen [From Percocet] AdvReac Severe Fainting Verified 01/21/25 09:18 naproxen AdvReac Severe abdominal Verified 01/21/25 09:18 pain omeprazole AdvReac Severe Diarrhea Verified 01/21/25 09:18 oxycodone [From Percocet] AdvReac Severe Fainting Verified 01/21/25 09:18 septra Allergy Severe rash Uncoded 01/21/25 09:18 Review of Systems Sugical H&P ROS: Negative: Constitution, Cardiovascular, Respiratory, Neurological, Psychiatric, Hem-Onc, Allergic/Immunologic, Gastrointestinal, Genitourinary, Musculoskeletal, Integumentary, Endocrine and Eyes/Ears/Nose/Throat Exam Surgical H&P Exam: Normal: HEENT, Normal: Heart, Normal: Lungs, Normal: Extremities, Normal: Abdomen, Normal: Skin and Normal: Neurological Plan Diagnosis/Plan: Unchanged I have reviewed the history and physical and performed a pertinent physical examination on my patient. No changes have occurred unless specified. Time Spent With Patient Time: Total time managing care of this patient today ____ minutes.
--- NOTE | 2025-01-21 10:13 | HO.ANESPROP2 ---
[facility] Active Problems Active Problems: All Active Problems Celiac disease (Acute) Pre-op examination (Acute) Upper abdominal pain (Acute) Diarrhea (Acute) Hard of hearing (Acute) Obesity (Acute) GERD (gastroesophageal reflux disease) (Acute) Allergic rhinitis (Acute) Asthma (Acute) Past Medical History Medical History Asthma Celiac disease GERD (gastroesophageal reflux disease) Heart murmur Migraine Functional capacity: independent ambulation Patient : No Family History Family History Family/Other Breast cancer Maternal Grandmother Ovarian cancer Father Heart abnormality Family history of problems with anesthesia: No Surgical History Surgical History History of esophagogastroduodenoscopy (EGD) Hx of dilation and curettage Hx of tubal ligation History of ear surgery History of Problems with Anesthesia: No Social History Social History Are you a primary critical care paramedic to a significant other at home: No Do you presently have visiting nurse or other home services: No Alcohol intake: never Patient Tobacco Use Status: Never used Tobacco Use of substances other than those prescribed or required for medical reasons: No Are you DNR?: No Advance Directives: No Advance Directives Information Provided: Yes Meds Allergies Allergy/AdvReac Type Severity Reaction Status Date / Time sulfamethoxazole Allergy Severe rash Verified 01/21/25 09:18 [From Bactrim] trimethoprim [From Bactrim] Allergy Severe rash Verified 01/21/25 09:18 acetaminophen [From Percocet] AdvReac Severe Fainting Verified 01/21/25 09:18 naproxen AdvReac Severe abdominal Verified 01/21/25 09:18 pain omeprazole AdvReac Severe Diarrhea Verified 01/21/25 09:18 oxycodone [From Percocet] AdvReac Severe Fainting Verified 01/21/25 09:18 septra Allergy Severe rash Uncoded 01/21/25 09:18 Active Medications: Current Medications Albuterol Sulfate (Albuterol Sulfate (0.083%) 2.5 Mg/3 Ml Vial.Neb) 2.5 mg INHALE ONCE PRN PRN Reason: Shortness of Breath/Wheezing Lactated Ringer's (Lr) 1,000 mls @ 100 mls/hr IVCONT .Q10H JUAN Last Admin: 01/21/25 09:37 Dose: 100 mls/hr Home Medications ?Medication ?Instructions ?Recorded ?Confirmed ?Last Taken ?Type albuterol sulfate 90 mcg/actuation 2 puff inhalation Q4-6H PRN Cold 08/02/22 01/21/25 Unknown History aerosol inhaler (ProAir HFA) Symptoms loratadine 10 mg tablet 10 mg PO DAILY 08/02/22 01/21/25 01/21/25 History multivitamin 1 tab PO DAILY 08/26/22 01/21/25 Unknown History njwansp-klpfwvxvpjljs-fjgjtajb 250 2 tab PO Q6H PRN Pain, Moderate 06/21/24 01/21/25 Unknown History mg-250 mg-65 mg tablet (Excedrin Extra Strength) acetaminophen 500 mg tablet 500 mg PO Q6H PRN mild pain 09/20/24 01/21/25 Unknown History vitamin B complex (Vitamins B 1 tab PO QAM 09/20/24 01/21/25 Unknown History Complex tablet) Exam Height,Weight and Vital Signs: Height 5 ft 6 in Weight 99 kg Last Vital Signs Temp 97.9 F 01/21/25 09:20 Pulse 92 01/21/25 09:20 Resp 16 01/21/25 09:20 BP 118/79 01/21/25 09:20 Pulse Ox 94 01/21/25 09:20 O2 Del Method Room Air 01/21/25 09:20 Airway Mallampati Class: III TM Dist: >3cm Neck ROM: Full Heart: RRR Lungs: CTA Assessment and Plan Assessment Anesthesia Assessment: Anesthesia Plan Discussed and Chart Reviewed Final Anesthetic Review Family History of Problems with Anesthesia: No History of Problems with Anesthesia: No NPO: Yes ASA Class: II Final Preanesthetic Review: Meds/Allgs Chart Reviewed, Consent Obtained/Reviewed and Anes Risks/Benef Reviewed Patient Risk: Low Procedure Risk: Low Anesthetic Plan Anesthetic Plan: MAC: Disposition: Standard PACU
--- NOTE | 2025-01-21 10:17 | HO.OPN-COLON ---
Colonoscopy Operative Note Operative Note Date of Service: 01/21/25 Narrative: Operative Information Procedure Description: Colonoscopy Indication: diarrhea Anesthesia: MAC COLONOSCOPY Instrument: Olympus variable stiffness pediatric scope 190L Colonoscopy Monitoring: Vital signs and clinical assessment, continuous EKG monitoring, Pulse oximetry, Carbon Dioxide monitoring and blood pressure monitoring were done throughout the procedure. Colon withdrawal time was 8 minutes. Procedure: The patient was placed in the left lateral decubitis position and pre-procedure medications were administered. After a digital rectal examination of the ano-rectum, the video colonoscope was inserted into the rectum and advanced through the colon to the cecum/TI. The colonoscope was slowly withdrawn in a retrograde panoramic fashion and the colon mucosa was carefully examined including a retroflexed view of the rectum. Findings and interventions are described below. Procedure Difficulty: moderate, pressure applied to reach cecum Findings: Terminal Ileum-normal, bx taken random bx takn from right, left and rectum in seperate jars Cecum: 3-4 mm sessile polyp removed with cold forceps Ascending Colon: normal Transverse Colon -normal Descending Colon:normal Sigmoid Colon: normal Rectum: Retroflexion with small internal hemorrhoids seen, grade I Anorectum - normal Intervention: cold forceps Colon preparation: [place] Bowel Preparation Scale Right colon; 2 Transverse colon: 2 Left colon; 2 (0 = Unprepared colon segment with mucosa not seen due to solid stool that cannot be cleared. 1 = Portion of mucosa of the colon segment seen, but other areas of the colon segment not well seen due to staining, residual stool and/or opaque liquid. 2 = Minor amount of residual staining, small fragments of stool and/or opaque liquid, but mucosa of colon segment seen well. 3 = Entire mucosa of colon segment seen well with no residual staining, small fragments of stool or opaque liquid) Impression and Post Procedure Diagnosis: colon polyp internal hemorrhoids Plan: High fiber diet leaflet Avoid straining at stool, epsom salts and sitz bath, anusol supps or cream Repeat Colonoscopy in 5-6 years if adenomatous polyp, 10 yrs if non adenomatous or earlier if clinically indicated Above findings were reviewed with the patient and relevant handouts were provided if indicated.
[2025-01-21 10:23] VITALS: BP 95/55; PULSE 74; RESP 16; TEMP 36.3; O2SAT 97
[2025-01-21 10:38] VITALS: BP 102/48; PULSE 73; RESP 16; TEMP 36.3; O2SAT 96
--- NOTE | 2025-01-21 12:07 | HO.POSTANES ---
Post Anesthesia Evaluation Post Anesthesia Evaluation Date of Service: 01/21/25 Vital Signs: Vital Signs Temp Pulse Resp BP Pulse Ox O2 Del Method 01/21/25 10:38 97.4 F 73 16 102/48 L 96 Room Air 01/21/25 10:23 97.4 F 74 16 95/55 L 97 Room Air 01/21/25 09:20 97.9 F 92 16 118/79 94 Room Air Anesthesia: Monitored Mental Status: Awake Pain Control: Satisfactory Nausea/Vomiting: None Hydration: Adequate Anesthesia-Related Issues: No Anes. Related Issues
== END 2025-01-21 11:00 | disposition home or self-care (01) ==
PROVIDERS: PCP Internal Medicine; Visit Provider Internal Medicine Gastroenterology
PROC: 0DJD8ZZ Inspection of Lower Intestinal Tract, Via Natural or Artificial Opening Endoscopic (ICD-10-PCS; CPT 45378; principal; 2025-01-21 10:10)
DX: R19.7 Diarrhea, unspecified (principal); R10.10 Upper abdominal pain, unspecified; R14.0 Abdominal distension (gaseous); D12.0 Benign neoplasm of cecum; K64.0 First degree hemorrhoids; K90.9 Intestinal malabsorption, unspecified; K21.9 Gastro-esophageal reflux disease without esophagitis; J45.909 Unspecified asthma, uncomplicated; G43.909 Migraine, unspecified, not intractable, without status migrainosus; R01.1 Cardiac murmur, unspecified; Z88.2 Allergy status to sulfonamides; Z88.5 Allergy status to narcotic agent; Z88.6 Allergy status to analgesic agent; Z88.8 Allergy status to other drugs, medicaments and biological substances; Z79.899 Other long term (current) drug therapy; Z98.890 Other specified postprocedural states
CPT/HCPCS: 45380; 88305; J2003; J2704

== ENCOUNTER → 2025-01-21 08:47 | Outpatient (BNV) | payer MEDICAID, SELFPAY | PROVIDERS: PCP Internal Medicine; Visit Provider Internal Medicine Gastroenterology | DX: R19.7 Diarrhea, unspecified (principal); D12.0 Benign neoplasm of cecum; K64.0 First degree hemorrhoids | CPT/HCPCS: 45380 ==

== ENCOUNTER 2025-02-12 13:27 | Outpatient (REF) | payer MEDICAID, SELFPAY ==
--- NOTE | ~2025-02-12 | XR_ITS ---
EXAMINATION: XR CERVICAL SPINE 2-3 VIEWS HISTORY: Neck pain, ?radiculopathy COMPARISON: There are no prior studies for comparison. FINDINGS: AP, lateral, and open-mouth odontoid views of the cervical spine are submitted. Osseous mineralization is normal. Seven cervical vertebral bodies are identified maintaining normal height without evidence of fracture or subluxation. There is straightening of the normal cervical lordosis. There is mild to moderate degenerative disc disease at the C5-6 and C6-7 levels, with disc space narrowing and osteophyte formation. Evaluation of the odontoid process of C2 is limited on the open-mouth view. There is no prevertebral soft tissue swelling. XR/XR cervical spine 2V IMPRESSION: Straightening of the normal cervical lordosis. Degenerative changes of the lower cervical spine as described. Electronically signed by: Wili Rushing MD 02/13/2025 07:38 AM EDT
--- OUTSIDE RECORDS SUMMARY | 2025-02-12 16:06 | XMS_ITS | Encounter Summary ---
Author Organization [employer] Address [address] [place] [address] Care Team Providers Care Community Service Director Name Role Phone Chuy Pabon MD Primary Care Provider [phone] Reason for Visit * Reason Onset Date Comments Med Refill 10/13/2023 Encounter Details Date Type Department Care Team ([facility] Contact Info) Description 10/13/2023 Refill [facility] CH[facility] MED & PEDS [address] [place] [address] Debbie Clark MD [address] [place] [address] Social History Tobacco Use Types Packs/Day Years Used Date Smoking Tobacco: Never Passive Smoke Exposure: Never Smokeless Tobacco: Never Alcohol Use Standard Drinks/Week Comments Never 0 (1 standard drink = 0.6 oz pur e alcohol) Depression Answer Date Recorded Patient Health Questionnaire-9 Score 2 12/30/2022 Housing Stability Answer Date Recorded What is your housing situation today? I have denise abreu 09/08/[address] you li ve. Do you have problems with any of the following? None of the above 09/08/2023 Food Insecurity Answer Date Recorded Within the past 12 months, y ou worried that your food would run out before you got money to buy more: Never True 09/08/2023 Within the past 12 months,th e food you bought just didn't last and you didn't have enough money to get more: Never True Transportation Answer Date Recorded In the past 12 months, has l ack of transportation kept you from medical appts, meetings, work or from getting things needed for daily living? No 09/08/2023 Utilities Answer Date Recorded In the past 12 months, has t he electric, gas, oil or water company threatened to shut off services in your home? No 09/08/2023 Depression Answer Date Recorded Patient Health Questionnaire-2 Score 2 12/30/2022 Comments No Sex and Gender Information Value Date Recorded Sex Assigned at Female 09/19/2022 10:31 AM EDT Legal Sex Female 10:31 AM EDT Gender Identity Female 09/19/2023 5:33 PM EDT Sexual Orientation Straight 09/19/2023 5: 33 PM EDT documented as of this encounter Plan of Treatment Not on file documented as of this encounter Visit Diagnoses Not on filedocumented in this encounter Additional Health Concerns Assessment Noted Time PHQ-9 Depression Total Score: 2 12/30/19 23 2:19 PM EST documented as of this encounter Care Teams Community Service Director Relationship Specialty Start Date End Date Chuy Pabon MD [address] [place] [address] PCP - General Internal Medicine 01/17/17 documented as of this encounter
--- OUTSIDE RECORDS SUMMARY | 2025-02-12 16:06 | XMS_ITS | Encounter Summary ---
Author Organization [employer] Address [address] [place] [address] [address] [place] [address] Care Team Providers Care Corn Husker Name Role Phone Chuy Pabon MD Primary Care Provider [phone] Reason for Visit * Reason Onset Date Comments Med Refill 09/25/2024 Encounter Details Date Type Department Care Team ([facility] st Contact Info) Description 09/25/2024 Refill [facility] CHC MED & PEDS [address] [place] [address] Chuy Pabon MD [address] [place] [address] Seasonal allergic reaction Social History Tobacco Use Types Packs/Day Years [...] documented as of this encounter Visit Diagnoses Diagnosis Seasonal allergic reaction Allergic rhinitis, cause unspecified documented in this encounter Additional Health Concerns Assessment Noted Time PHQ-9 Depression Total Score: 2 12/30/19 23 2:19 PM EST documented as of this encounter Care Teams Corn Husker Relationship Specialty Start Date End Date Chuy Pabon MD [address] [place] [id number] PCP - General Internal Medicine 01/17/17 documented as of this encounter
--- OUTSIDE RECORDS SUMMARY | 2025-02-12 16:06 | XMS_ITS | Encounter Summary ---
Author Organization [email or web address] Address [address] [address] [place] [address] Care Team Providers Care Laborer Pole Crew Name Role Phone Chuy Pabon MD Primary Care Provider [phone] Encounter Details Date Type Department Care Team ([facility] st Contact Info) Description 01/23/2025 Orders Only [facility] CHC MED & PEDS [address] [place] [address] ProviderShanice MD Social History Tobacco Use Types Packs/Day Years [...] on file documented as of this encounter Procedures Procedure Name Priority Date/Time Associated Diagnosis Comments HM COLONOSCOPY Routine 01/21/2025 9:23 AM EST documented in this encounter Results * Hm Colonoscopy (01/21/2025 9:23 AM EST) us Historical Provider HEALTH MAINTENANCE Final Result documented in this encounter Visit Diagnoses Not on filedocumented in this encounter Additional Health Concerns Assessment Noted Time PHQ-9 Depression Total Score: 2 12/30/19 23 2:19 PM EST documented as of this encounter Care Teams Laborer Pole Crew Relationship Specialty Start Date End Date Chuy Pabon MD [address] [place] [id number] PCP - General Internal Medicine 01/17/17 documented as of this encounter
--- OUTSIDE RECORDS SUMMARY | 2025-02-12 16:06 | XMS_ITS | Encounter Summary ---
Author Organization [employer] Address [address] [place] [address] 7 [place] [address] Care Team Providers Care Hydro Mechanic Name Role Phone Chuy Pabon MD Primary Care Provider [phone] Reason for Visit * Reason Comments Med Refill Encounter Details Date Type Department Care Team ([facility] st Contact Info) Description 06/28/2023 Refill [facility] MEDICINE [address] [place] [address] Chuy Pabon MD [address] [place] [address] Social History Tobacco Use Types Packs/Day Years Used Date Smoking Tobacco: Never Passive Smoke Exposure: Never Smokeless Tobacco: Never Alcohol Use Standard Drinks/Week Comments Never 0 (1 standard drink = 0.6 oz pur e alcohol) Depression Answer Date Recorded Patient Health Questionnaire-9 Score 2 12/30/2022 Depression Answer Date Recorded Patient Health Questionnaire-2 Score 2 12/30/2022 Comments No Sex and Gender Information Value Date Recorded Sex Assigned at Female 09/19/2022 10:31 AM EDT Legal Sex Female 10:31 AM EDT Gender Identity Female 09/19/2023 5:33 PM EDT Sexual Orientation Straight 09/19/2023 5: 33 PM EDT COVID-19 Exposure Response Date Recorded In the last 10 days, have yo u been in contact with someone who was confirmed or suspected to have Coronavirus/COVID-19? No / Unsure 06/01/2023 10:44 AM EDT documented as of this encounter Plan of Treatment Not on file documented as of this encounter Visit Diagnoses Not on filedocumented in this encounter Additional Health Concerns Assessment Noted Time PHQ-9 Depression Total Score: 2 12/30/19 23 2:19 PM EST documented as of this encounter Care Teams Hydro Mechanic Relationship Specialty Start Date End Date Chuy Pabon MD [address] [place] [id number] PCP - General Internal Medicine 01/17/17 documented as of this encounter
--- OUTSIDE RECORDS SUMMARY | 2025-02-12 16:06 | XMS_ITS | Encounter Summary ---
Author Organization [email or web address] Address [address] [place] [address] 7 [place] [address] Care Team Providers Care Change Agent Name Role Phone Chuy Pabon MD Primary Care Provider [phone] Encounter Details Date Type Department Care Team (Latest Contact Info) Description 04/15/2021 Abstract [facility] CONVERSIONS Dental, Provider, DDS Social History Tobacco Use Types Packs/Day Years Used Date Smoking Tobacco: Never Assessed Comments Unknown Sex and Gender Information Value Date Recorded Sex Assigned at Female 09/19/2022 10:31 AM EDT Legal Sex Female 10:31 AM EDT Gender Identity Female 09/19/2023 5:33 PM EDT Sexual Orientation Straight 09/19/2023 5: 33 PM EDT documented as of this encounter Plan of Treatment Not on file documented as of this encounter Visit Diagnoses Not on filedocumented in this encounter Care Teams Change Agent Relationship Specialty Start Date End Date Chuy Pabon MD [address] [place] [address] PCP - General Internal Medicine 01/17/17 documented as of this encounter
--- OUTSIDE RECORDS SUMMARY | 2025-02-12 16:06 | XMS_ITS | Clinical Summary ---
Author Organization [employer] Address [address] [facility] [address]t [place] [address] Care Team Providers Care Pediatric Surgeon Name Role Phone Chuy Pabon MD Primary Care Provider [phone] Allergies Active Allergy Reactions Criticality Noted Date Comments Acetaminophen Syncope High 08/08/2024 Naproxen 07/12/2017 Omeprazole Diarrhea High 09/20/2023 Oxycodone Syncope High 08/08/2024 Sulfamethoxazole Rash High 03/16/2018 Trimethoprim Rash High 03/16/2018 Medications pantoprazole (ProtoNix) 40 MG EC tablet Take 40 mg by mouth 2 times daily. 11/23/19 23 Active Diclofenac Sodium 1 % gel APPLY TO TWO GRAM TO THE AFFECTED AREA(s) TWICE DAILY 09/20/20 22 Active ProAir HFA 108 (90 Base) MCG/ACT inhaler INHALE 2 PUFFS BY MOUTH EVERY 4-6 HOURS NEEDED 06/06/20 22 Active fluticasone (Flonase Sensimist) 27.5 MCG/SPRAY nasal sprayIndicatio ns:Sinus problem Administer 1 spray into each nostril in the morning. 10 g 2 03/21/20 23 Active fexofenadine (Taty) 180 MG tabletIndicati ons:Sinus problem Take 1 tablet (180 mg) by mouth if needed each day (Allergies). 30 tablet 11 03/21/20 23 Active butalbital-ana lilia taminophen-caf feine 50-325-40 MG tablet TAKE 1 TABLET BY MOUTH EVERY 6 HOURS IF NEEDED OR HEADACHES. NOT TO USE MORE THAN 3 TIMES A WEEK 10 tablet 1 09/08/20 23 Active montelukast (Singulair) 10 MG tablet Take 10 mg by mouth at bedtime. 09/01/20 Active Flovent HFA 110 MCG/ACT inhaler TAKE 1 PUFF BY MOUTH TWICE A DAY 09/01/20 Active fluticasone (Flonase) 50 MCG/ACT nasal spray TAKE 2 PUFFS INTO EACH NOSTRIL ONCE DAILY 09/01/20 Active Azelastine HCl 137 MCG/SPRAY solution USE 2 SPRAYS NASALLY TWICE A DAY DIRECTED 09/01/20 Active oxyCODONE-acet aminophen (Percocet) 5-325 MG tabletIndicati ons:Closed fracture of left ankle, initial encounter Take 1 tablet by mouth every 6 (six) hours if needed for severe pain. 10 tablet 09/20/20 Active loratadine (Claritin) 10 MG tabletIndicati ons:Seasonal allergic reaction TAKE 1 TABLET BY MOUTH EVERY DAY IN THE MORNING 90 tablet 3 07/15/20 24 Active B-Complex, Folic Acid, tabletIndicati ons:Vitamin deficiency Take 1 tablet by mouth Once per day. 90 tablet 3 07/15/20 24 Active loratadine (Claritin) 10 MG tabletIndicati ons:Seasonal allergic reaction Take 1 tablet (10 mg) by mouth Once per day. 90 tablet 3 07/15/20 24 Active azithromycin (Zithromax) 250 MG tablet Take 2 tabs day and then 1 tab daily 6 tablet 01/08/20 25 Active azelastine (Astelin) 0.1 % nasal spray Administer 1 spray into each nostril 2 times daily. Use in each nostril as directed 30 mL 12 01/08/20 25 026 Active gabapentin (Neurontin) 300 MG capsule 300 mg. 06/21/20 24 Active celecoxib (CeleBREX) 100 MG capsuleIndicat ions:Right wrist tendonitis Take 1 twice daily with food as needed for pain 60 capsule 02/11/20 25 Active ibuprofen 600 MG tablet Take 1 tablet (600 mg) by mouth every 8 (eight) hours if needed for moderate pain. 60 tablet 11/07/20 23 025 Discontinued(In effective) ibuprofen 600 MG tablet TAKE 1 TABLET BY MOUTH EVERY 8 HOURS NEEDED FOR MODERATE PAIN 60 tablet 12/04/19 25 025 Discontinued predniSONE (Deltasone) 20 MG tablet Take 2 tablets (40 mg) by mouth Once per day for 5 days. 10 tablet 01/08/20 25 025 Acetaminophen Extra Strength 500 MG tabletIndicati ons:Upper respiratory tract infection, unspecified type Place 1 tablet (500 mg) into mouth between cheek and gum 3 times daily. 90 tablet 01/10/20 25 025 ibuprofen 600 MG tablet TAKE 1 TABLET BY MOUTH EVERY 8 HOURS NEEDED FOR MODERATE PAIN 60 tablet 01/28/20 25 025 Discontinued(In effective) Active Problems Problem Noted Date Diagnosed Date Allergic rhinitis 01/23/2025 Asthma 01/23/2025 Celiac disease 01/23/2025 Class 1 obesity 01/23/2025 Obesity 01/23/2025 Diarrhea 01/23/2025 Overview (01/23/2025): She may have been in response to omeprazole as well as some other variables Gastritis 01/23/2025 GERD (gastroesophageal reflux disease) Hard of hearing 01/23/2025 Pre-op examination 01/23/2025 Upper abdominal pain 01/23/2025 Closed fracture of left ankle 09/20/2023 Assessment & Plan (09/20/2023 2:51 PM EDT): Pt reports was told she had a fracture in her left ankle, no records available on time of appt. Currently with an air cast on the left ankle. Will place referral to ortho surgery and will rx oxycodone & ibuprofen. Restrictions were given for work. -Recommended patient to avoid being on her feet for long period of time, and rest to avoid hurting the affected leg. -Follow up with PCP in 2-3 weeks Migraine 07/26/2023 Chronic right shoulder pain 02/06/2023 Assessment & Plan (02/06/2023 1:55 PM EDT): Patient had a right dislocated shoulder on December, she has been receiving PT, no improvement in symptoms, will place order for a MRI and will refer to ortho for evaluation Dizziness 12/28/2022 Assessment & Plan (12/28/2022 5:06 PM EST): Patient with non specific episode of dizziness on Monday, reports was seen in [facility] for w/u, reports had head imaging and test, no results available for review. Denies recurrent but is concern of etiology. Acute back pain 12/28/2022 Assessment & Plan (12/28/2022 5:08 PM EST): Shoulder height discrepency, along with paraspinal spasms and R hip anterior rotation. She will benefit of continued PT for her back pain once her symptoms have improved and will provide trial of muscle relaxer, again will need to review records from the hospital. Acute pain of right shoulder 12/28/2022 Assessment & Plan (12/28/2022 5:07 PM EST): Reports was told she had a R shoulder dislocation, again no records available, requested RN to get records. Will refer to orthopedics STAT and will schedule f/u with PCP. She has decreased ROM in her upper R extremity along with pain. Unable to safely participate in her work, will provide work letter and have her reassess in 1 week. Decreased hearing 01/17/2017 Migraines 03/06/2016 Encounters Date Type Department Care Team Description 02/10/2025 3:20 PM EDT Office Visit [facility] [address] [place] [address] Sharita Aquino ANP Bilateral hand pain (Primary Dx); Numbness and tingling in both hands; Left wrist tendinitis; Right wrist tendonitis; Neck pain 02/10/2025 Telephone [facility] [address] [place] [address] Chuy Pabon MD Nurse Triage 01/31/2025 Population Health Risk Score [facility] ([facility]) Department [address] [id number] Provider, Population Health Generic 01/26/2025 Refill [facility] [address] [place] [address] Chuy Pabon MD 01/23/2025 Orders Only [facility] [address] [place] [address] Provider, MD Shanice 01/09/2025 Refill [facility] [address] [place] [address] Chuy Pabon MD Upper respiratory tract infection, unspecified type 01/08/2025 3:40 PM EST Office Visit [facility] [address] [place] [address] Georgia Salas MD Acute non-recurrent maxillary sinusitis (Primary Dx) 01/08/2025 Refill [facility] [address] [place] [address] Chuy Pabon MD Upper respiratory tract infection, unspecified type 01/08/2025 Travel 01/08/2025 Telephone [facility] [address] [place] [address] Chuy Pabon MD Nurse Triage 12/05/2024 Refill [facility] [address] [place] [address] Chuy Pabon MD Seasonal allergic reaction 12/03/2024 Refill [facility] [address] [place] [address] Chuy Pabon MD from Last 3 Months Immunizations Name Administration Dates Next Due Influenza injectable quadriv alent IIV4 with preservative 08/05/2019,08/16/2018 Tdap 08/16/2018,10/08/2015 Family History Medical History Relation Name Comments Diabetes Father Migraines Father Hypertension Mother Migraines Mother Scoliosis Mother seizure disorder Mother Relation Name Status Comments Father Mother Social History Tobacco Use Types Packs/Day Years Used Date Smoking Tobacco: Never Passive Smoke Exposure: Never Smokeless Tobacco: Never Tobacco Cessation:Counseling Given: Not Answered Alcohol Use Standard Drinks/Week Comments Never 0 [...] Orientation Straight 09/19/2023 5: 33 PM EDT Last Filed Vital Signs Vital Sign Reading Time Taken Comments Blood Pressure 137/84 02/10/2025 3:19 PM EDT Pulse 62 02/10/2025 3:19 PM EDT Temperature 36.6 ??C (97.8 ??F) 02/10/2025 3:19 PM ED T Respiratory Rate 17 02/10/2025 3:19 PM EDT Oxygen Saturation 98% 02/10/2025 3:19 PM EDT Inhaled Oxygen Concentration - - Weight 104 kg (228 lb 3.2 oz) 02/10/2025 3:19 PM EDT Height 170.2 cm (5' 7 ) 01/08/2025 3:44 PM EST Body Mass Index 35.74 01/08/2025 3:44 PM EST Plan of Treatment Health Maintenance Due Date Last Done Comments CT Colonography 1979 FIT DNA/Cologuard 1979 FIT 1979 FOBT 1980 HIV Screening 1980 Lipid Panel 1979 Sigmoidoscopy 1979 Alcohol/Substance Use Screening 1991 Family Planning (PISQ) 1994 Hepatitis C Screening 1997 Hepatitis B Vaccines (1 of 3 - 19+ 3-dose series) 1998 Pneumococcal Vaccine: Pediatrics (0 to 5 Years) and At-Risk Patients (6 to 49) Years) (1 of 2 - PCV) 1998 Depression Screening 12/30/2023 12/30/2022, 12/30/2022 SDOH Screening 12/30/2023 12/30/2022 COVID-19 Vaccine (1 - 2023-2 5 season) 2024 Influenza Vaccine (#1) 2024 9, 08/16/2018 Pap Smear 10/19/2024 10/19/2021 Tobacco Screening 02/10/2026 02/10/2025 Mammogram 02/11/2026 02/12/2024, 12/23/2021 Cervical Cancer Screening 10/19/2026 HPV/Cotest 10/19/2026 10/19/2021, 07/31/2018 DTaP/Tdap/Td Vaccines (3 - T d or Tdap) 08/16/2028 08/16/2018, 10/08/2015 Zoster Vaccines (1 of 2) 2029 Colonoscopy 01/21/2030 01/21/2025 Colorectal Cancer Screening 01/21/2030 RSV Patients and Patients Aged 60 years or older (1 - 1-dose 75+ series) 2054 HIB Vaccines Aged Out No longer eligi ble based on patient's age to complete this topic HPV Vaccines Aged Out No longer eligi ble based on patient's age to complete this topic Hepatitis A Vaccines Aged Out No long er eligible based on patient's age to complete this topic IPV Vaccines Aged Out No longer eligi ble based on patient's age to complete this topic Meningococcal Vaccine Aged Out No karla feliz eligible based on patient's age to complete this topic RSV under 20 months Aged Out No longe r eligible based on patient's age to complete this topic Rotavirus Vaccines Aged Out No longer eligible based on patient's age to complete this topic Procedures Procedure Name Priority Date/Time Associated Diagnosis Comments HEMATOXYLIN AND EOSIN STAIN Routine 01/21/2025 10:11 AM EST HM COLONOSCOPY Routine 01/21/2025 9:23 AM EST RAST ALLERGEN (NON ORDERABLE) Routine 12/04/2024 12:38 PM EST TISSUE TRANSGLUTAMINASE AB, IGA Routine 12/04/2024 12:38 PM EST TISSUE TRANSGLUTAMINASE AB, IGG Routine 12/04/2024 12:38 PM EST BI MAMMOGRAM SCREENING TOMOSYNTHESIS BILATERAL Routine 02/12/2024 12:55 PM EDT THINPREP IMAGING PAP AND HPV MRNA E6/E7 WITH REFLEX TO HPV 16,18/45 Routine 10/19/2021 10:24 AM EST from Last 3 Months or Most Recently Relevant to Health Maintenance Results * Hematoxylin and Eosin Stain (01/21/2025 10:11 AM EST) 01/21/2025 10:1 1 AM EST 01/21/2025 10:55 AM EST [facility] - 01/22/2025 3:19 PM EST ----- ------- Name: Alistair Leonard ?Age/Sex: 44/F ? [facility] 1980 [id number] ?? Attend Dr: Day Hurtado MD ?Re01/21/25 ?Status: DEP [facility] ? Location: HO.SSS ?Disch: ? ----- ------- SPEC : [id number] ? RECD: 01/21/25-5 ? STATUS: ??SOUT ? REQ NUM: [id number] ? CESAR: 01/21/25-1011 ? SUBM DR: Day Hurtado MD ? ENTERED: ??01/21/25-1118 ?SP TYPE: Surgical ? OTHR DR: Chuy Pabon MD ? ORDERED: ??HE Stain/15, Gross Micro L4/5 ? Diagnosis ?? A. ??Terminal ileum, biopsy: ??Ileal mucosa with no specific change. ? B. ??Colon, cecal polyp: ??Tubular adenoma; negative for high-grade dysplasia and ?? carcinoma. ? C. ??Colon, random right, biopsy: ??Colonic mucosa with reactive lymphoid aggregates and no ?? specific change; no evidence of microscopic colitis. ? D. ??Colon, random left, biopsy: ??Colonic mucosa with lymphoid aggregates and no specific ?? change; no evidence of microscopic colitis. ? E. ??Colon, rectal biopsy: ??Colonic mucosa with lymphoid aggregates and no specific ?? change; no evidence of microscopic colitis. ?Clinical History Pre-Op Dx: ??Diarrhea, unspecified Post-Op Dx: Polyp, internal hemorrhoids ?Microscopic Description Microscopic sections reviewed. ? Material Received ?? A. TI bx's ?? B. Cecal polyp ?? C. Random right sided colon bx's ?? D. Random left sided colon bx's ?? E. Rectal bx's ? Gross Description Received in 5 parts. A. ??Received in formalin labeled ?TI biopsies? are 3 fragments of pink white soft tissue measuring 0.2-0.3 cm in greatest dimension which are wrapped in lens paper and entirely submitted for microscopic examination, 3 pieces in cassette A. B. Received in formalin labeled ?cecal polyp? is a fragment of fry- white soft tissue measuring 0.4 cm in greatest dimension which is wrapped in lens paper and entirely submitted for microscopic examination, 1 piece in cassette B. ? CONTINUED ON NEXT PAGE ----- ------- Name: Alistair Leonard ?Age/Sex: 44/F ? : 1980 Unit#: [id number] ?? Attend Dr: Day Hurtado MD ?Re01/21/25 ?Status: DEP SDC ? Location: HO.SSS ?Disch: ? ----- ------- SPEC : [id number] ? RECD: 01/21/25-1054 ? STATUS: ??SOUT ? REQ NUM: [id number] ? CESAR: 01/21/25-1011 ? SUBM DR: Day Hurtado MD ? ENTERED: ??01/21/25-1118 ?SP TYPE: Surgical ? OTHR DR: Chuy Pabon MD ? ORDERED: ??HE Stain/15, Gross Micro L4/5 ? Gross Description ?(Continued) C. Received in formalin labeled ?random right-sided colon biopsies? are 3 fragments of pink white soft tissue measuring 0.2-0.3 cm in greatest dimension which are wrapped in lens paper and entirely submitted for microscopic examination, 3 pieces in cassette C. D. Received in formalin labeled ?random left-sided colon biopsies? are 3 fragments of pink white soft tissue measuring 0.2-0.3 cm in greatest dimension which are wrapped in lens paper and entirely submitted for microscopic examination, 3 pieces in cassette D. E. Received in formalin labeled ?rectal biopsies? are 3 fragments of pink white soft tissue measuring 0.2-0.4 cm in greatest dimension which are wrapped in lens paper and entirely submitted for microscopic examination, 3 pieces in cassette E. ??([facility]) Copies To: ?? Chuy Pabon MD ?? [facility] ?? [address] ?? [place] [address] ?? [phone] ?? Day Hurtado MD ?? [facility] ?? [address] ?? [place] [address] ?? [phone] ----- ------- Signed (signature on file) [address] 01/22/25 1519 ? ----- ------- ? END OF REPORT ? us Generic External Data Provider LAB BLOOD ORDERAB LES Final Result [facility] [address] [place] [address] [phone] * Colonoscopy (01/21/2025 9:23 AM EST) us Historical Provider HEALTH MAINTENANCE Final Result * Rast Allergen (12/04/2024 12:38 PM EST) Rast Allergen SEE NOTE [facility] Comment:SEE SCANNED RESULTS IN EMR 12/04/2024 12:3 8 PM EST 12/04/2024 12:38 PM EST Generic External Data Provider HISTORICAL/NON OR DERABLE LABS Final Result Performing Organization Address [facility]/ZIP Co de Phone Number [facility] [address] [place] [address] [phone] * Tissue Transglutaminase (tTG) Antibody (IgG) (12/04/2024 12:38 PM EST) Pathologist [facility] Tissue Transglutaminase Antibody IgG <1.0 U/mL [facility] Comment:Value Interpretation ----- <15.0 Antibody not detected> or = 15.0 Antibody detectedTHIS TEST WAS PERFORMED AT:[employer] [place] [id number] DUARTE MD 12/04/2024 12:3 8 PM EST 12/04/2024 12:38 PM EST Generic External Data Provider LAB BLOOD ORDERAB LES Final Result Performing Organization Address [facility]/ZIP Co de Phone Number [facility] [address] [place] [phone] * Tissue Transglutaminase Antibody, IgA (12/04/2024 12:38 PM EST) Pathologist [facility] Transglutaminase IgA <1.0 U/mL [facility] Comment:Value Interpretation ----- <15.0 Antibody not detected> or = 15.0 Antibody detectedTHIS TEST WAS PERFORMED AT:[facility] [place] [id number] DUARTE MD 12/04/2024 12:3 8 PM EST 12/04/2024 12:38 PM EST us Generic External Data Provider LAB BLOOD ORDERAB LES Final Result [facility] [address] [place] [address] [phone] * BI Mammogram Screening Tomosynthesis Bilateral (02/12/2024 12:55 PM EDT) Anatomical Region Laterality Modality Breast Bilateral Mammography 02/12/2024 12:5 5 PM EDT Narrative 03/12/2024 5:05 AM EDT ? [facility] ? [address] ?[place] [address] ? Mammography Report ? Signed ? Patient: Mitch Leonardjitendrajose m C ?MR#: [id number] ?? [id number] ? : 1980 ?Acct:[id number] ? Age/Sex: 43 / F ?ADM Date: 02/12/24 ? Loc: HO.MAMMO ? Attending Dr: Chuy Pabon MD ? Ordering Physician: Chuy Pabon MD ?Results: 1 ?? Negative ? Date of Service: 02/12/24 ?Follow Up: 1 Year From Orig ?? inal Mammogram ? Procedure(s): MM tomosynthesis screening BI ?? Accession Number(s): [id number] ? cc: Chuy Pabon MD ? EXAMINATION: ?? MM SCREENING DIGITAL BREAST TOMOSYNTHESIS, BILATERAL ? CLINICAL INFORMATION: ? Screening. Asymptomatic. ? COMPARISON: ?? Mammography: This study is compared with prior exams dating back to ?? 2021. ? TECHNIQUE: ?? Digital breast tomosynthesis is performed in both the craniocaudal and ?? mediolateral oblique views along with computer-aided detection (CAD). ?? Synthesized 2D images are generated from the tomosynthesis. ? FINDINGS: ?? The breasts are heterogeneously dense, which may obscure small masses ?? (ACR BI-RADS breast composition Category c). ? There are no significant masses, abnormal calcifications, or other ?? abnormalities. ? MM/MM tomosynthesis screening BI ?? IMPRESSION: ?? No mammographic evidence of malignancy. ? ASSESSMENT: ? BI-RADS BI-RADS 1 - Negative ? RECOMMENDATION: ?? Routine annual mammography screening. ? 1 year F/U ? This examination should not preclude the clinical evaluation of a ?? suspicious palpable abnormality. ? This patient's information was entered into a reminder system with a ?? target due date for their next mammogram. ? Dictated By: ?Zina Saba MD ? Signed By: ?<Electronically signed by Zina Saba MD in OV> ? 03/12/24 0501 ? DD/ 1255 ? TD/TT: ? Automobile Carpets Molder: ? Procedure Note Katy Harrington - 03/12/2024 [facility] [address] [place] [address] [place] [address] Mammography Report Signed Patient: Alistair Leonard CMR#: [id number] : 1980Acct:[id number] Age/Sex: 43 / FADM Date: 02/12/24 Loc: HO.MAMMO Attending Dr: Chuy Pabon MD Ordering Physician: Chuy Pabon MDResults: 1 Negative Date of Service: 02/12/24Follow Up: 1 Year From Orig inal Mammogram Procedure(s): MM tomosynthesis screening BI Accession Number(s): [id number] cc: Chuy Pabon MD EXAMINATION: MM SCREENING DIGITAL BREAST TOMOSYNTHESIS, BILATERAL CLINICAL INFORMATION: Screening. Asymptomatic. COMPARISON: Mammography: This study is compared with prior exams dating back to 2021. TECHNIQUE: Digital breast tomosynthesis is performed in both the craniocaudal and mediolateral oblique views along with computer-aided detection (CAD). Synthesized 2D images are generated from the tomosynthesis. FINDINGS: The breasts are heterogeneously dense, which may obscure small masses (ACR BI-RADS breast composition Category c). There are no significant masses, abnormal calcifications, or other abnormalities. MM/MM tomosynthesis screening BI IMPRESSION: No mammographic evidence of malignancy. ASSESSMENT: BI-RADS BI-RADS 1 - Negative RECOMMENDATION: Routine annual mammography screening. 1 year F/U This examination should not preclude the clinical evaluation of a suspicious palpable abnormality. This patient's information was entered into a reminder system with a target due date for their next mammogram. Dictated By: Zina Saba MD Signed By: <Electronically signed by Zina Saba MD in OV> 03/12/24 0501 DD/ 1255 TD/TT: [employer] Carp[employer] Molder: Chuy Pabon MD IMG BI PROCEDURES Final Res ult * THINPREP TIS PAP AND HPV mRNA E6/E7 REFLEX HPV 16,18/45 (10/19/2021 10:24 AM EST) Clinical Information: [id number] COMMENT SEE COMMENT [facility] Comment: EXPLANATORY NOTE: ? The Pap is a screening test for cervical cancer. It is ?? not a diagnostic test and is subject to false negative ?? and false positive results. It is most reliable when a ?? satisfactory sample, regularly obtained, is submitted ?? with relevant clinical findings and history, and when ?? the Pap result is evaluated along with historic and ?? current clinical information. ?? COMMENT: This Pap test has been evaluated with computer assisted technology. [facility] [employer] Soap Supervisor: SEE COMMENT [facility] Comment: SXA, CT(ASCP) CT screening location: [address] ??[id number] HPV nRNA E6/E7 Not Detected Not Detected [facility] Comment: Methodology: Water Quality Specialist-Mediated Amplification This assay detects E6/E7 viral messenger RNA (mRNA) from 14 high-risk HPV types (16,18,31,33,35,39,45,51,52,56,58,59,66,68). ? The analytical performance characteristics of this assay have been determined by [facility]. The modifications have not been cleared or approved by the FDA. This assay has been validated pursuant to the CLIA regulations and is used for clinical purposes. ?? For additional information, please refer to http://education.[employer] [place]/faq/MTO120i5 (This link if provided for information/ educational purposes only.) Interpretation/Re sult: Negative for intraepithelial lesion or malignancy. [facility] LMP: 09/26/2021 [facility] Prev. BX: NONE GIVEN [facility] Prev. PAP: BEENA/NEG 2017 [facility] SOURCE: Cervix [facility] Statement Of Adequacy: SEE COMMENT [facility] Comment: Satisfactory for evaluation. Endocervical/transformation zone component present. 10/19/2021 10:2 4 AM EST us Tamiko Nuñez CNM LAB PATHOLOGY ORDERABLES Final Result [facility] [address] from Last 3 Months or Most Recently Relevant to Health Maintenance Insurance Powered Now C3 Care Teams Pediatric Surgeon Relationship Specialty Start Date End Date Chuy Pabon MD [address] [place] [phone] PCP - General Internal Medicine 01/17/17
--- OUTSIDE RECORDS SUMMARY | 2025-02-12 16:06 | XMS_ITS | Encounter Summary ---
Author Organization [employer] Address [address] [place] [address] 7 [place] [address] Care Team Providers Care Mortgage Originator Name Role Phone Chuy Pabon MD Primary Care Provider [phone] Reason for Visit * Reason Onset Date Comments Nurse Triage 09/19/2023 Encounter Details Date Type Department Care Team ([facility] Contact Info) Description 09/19/2023 Telephone [facility] CHC MED & PEDS [address] [place] [address] Chuy Pabon MD [address] [place] [address] Nurse Triage Social History Tobacco Use Types Packs/Day Years [...] PM EDT documented as of this encounter Miscellaneous Notes * Telephone Encounter - April Kumar RN - 09/19/2023 3:12 PM EDT Called pt. She states that 3 days ago on 09/17/23 she fell on her stairs and injured her left foot.Pt went to [facility] ED that night and was found to have a fracture on her ankle bone. Pt. Has swelling in ankle. Pt. Was given some Oxycodone in the ED but does not have any pain med at present. Pt. Has aboot and has crutches but has not put the boot on yet due to the pain when she tries to. Ankle painshoots up to the tip of her toes. No bruising noted. ED provider told pt. To make fu and get a referral to an scheduling specialist. Protocol Used: Ankle and Foot Injury (Adult) Protocol-Based Disposition: Pt was seen at [facility] ED on 09/17/23- Pt. Has fu appt on 09/20/23 at 2pm in [facility]. Will send this note to care coordinators to get ED notes for appt. Video visit offer not recorded Positive Triage Questions: *ankle fracture according to pt. Via Xray at [facility] ED on 09/14/23. * Can't stand (bear weight) or walk (e.g., 4 steps) * Severe pain (e.g., excruciating) * Large swelling or bruise and size > palm of person's hand * All higher-acuity triage questions were negative Care Advice Discussed: * Reassurance and Education - Bending or Twisting Injury (Strain, Sprain) * Use a Cold Pack for Pain, Swelling, or Bruising * Use Heat on Area After 48 Hours * Wrap With an Elastic Bandage * Elevate the Ankle and Foot * Rest vs. Movement * Expected Course * Telephone Encounter - Luzmaria Caldera - 09/19/2023 3:06 PM EDT Symptom: Foot or Ankle Pain - Not From Injury Outcome: Schedule an urgent appointment (within 1 hour) or talk to a nurse or provider soon Reason: Severe pain now, [facility] ankle. Pt also requesting anextension for time off of work and a referral to ortho The caller accepted this outcome Please contact pt at [phone] documented in this encounter Plan of Treatment Not on file documented as of this encounter Visit Diagnoses Not on filedocumented in this encounter Additional Health Concerns Assessment Noted Time PHQ-9 Depression Total Score: 2 12/30/19 23 2:19 PM EST documented as of this encounter Care Teams Mortgage Originator Relationship Specialty Start Date End Date Chuy Pabon MD [address] [place] [address] PCP - General Internal Medicine 01/17/17 documented as of this encounter
--- OUTSIDE RECORDS SUMMARY | 2025-02-12 16:06 | XMS_ITS | Encounter Summary ---
Author Organization [employer] Address [address] [place] [address] [place] [address] Care Team Providers Care Vocal Performer Name Role Phone Chuy Pabon MD Primary Care Provider [phone]- [phone] Encounter Details Date Type Department Care Team ([facility] Contact Info) Description 12/07/2022 Orders Only [facility] [address] [place], [place] [phone] Chuy Pabon MD [address] [place], [place] [phone] Social History Tobacco Use Types Packs/Day Years [...] on filedocumented in this encounter Care Teams Vocal Performer Relationship Specialty Start Date End Date Chuy Pabon MD [address] [place] [address] PCP - General Internal Medicine 01/17/17 documented as of this encounter
--- OUTSIDE RECORDS SUMMARY | 2025-02-12 16:06 | XMS_ITS | Encounter Summary ---
Author Organization [employer] Address [address] [place] [address] 7 [place] [address] Care Team Providers Care Padded Products Inspector Trimmer Name Role Phone Chuy Pabon MD Primary Care Provider [phone] Encounter Details Date Type Department Care Team ([facility] st Contact Info) Description 01/04/2023 Abstract [facility] CHC MED & PEDS [address] [place] [address] Chuy Pabon MD [address] [place] [address] Social History Tobacco Use Types Packs/Day Years [...] suspected to have Coronavirus/COVID-19? No / Unsure 12/30/2022 1:55 PM EST documented as of this encounter Plan of Treatment Not on file documented as of this encounter Visit Diagnoses Not on filedocumented in this encounter Additional Health Concerns Assessment Noted Time PHQ-9 Depression Total Score: 2 12/30/19 23 2:19 PM EST documented as of this encounter Care Teams Padded Products Inspector Trimmer Relationship Specialty Start Date End Date Chuy Pabon MD [address] [place] [address] PCP - General Internal Medicine 01/17/17 documented as of this encounter
--- OUTSIDE RECORDS SUMMARY | 2025-02-12 16:06 | XMS_ITS | Encounter Summary ---
Author Organization [employer] Address [address] [facility] 7 [place] [address] Care Team Providers Care Metallurgical Analyst Name Role Phone Chuy Pabon MD Primary Care Provider [phone] Reason for Visit * Reason Onset Date Comments Nurse Triage 02/10/2025 Encounter Details Date Type Department Care Team ([facility] st Contact Info) Description 02/10/2025 Telephone [facility] MEDICINE [address] [place] [address] Chuy Pabon MD 505 [place], [place] [phone] Nurse Triage Social History Tobacco Use Types [...] encounter Miscellaneous Notes * Telephone Encounter - Kayleigh Chambers RN - 02/10/2025 9:31 AM EDT Triage call Pt reports mod to severe pain of both hands but, more so the right hand. Pt reports finger tips are swollen and numbness present. Pain radiates to shoulders. Pt is having difficulty working and has been put on light duty at this time. Pt is taking motrin but, due to gastric upset is limited as to how many times motrin can be taken. No available apts in [facility] till 02/12/25. Pt requests melanie seen today and is offered to come to [facility] and accepts this offer. Hours given open today till 8pm. Address [address] [facility] in [place]. Pt agrees with disposition . Home care already implemented. Insurance is verified as active. Protocol Used: Hand Pain (Adult) Protocol-Based Disposition: See in Office or Video Visit within 3 Days Video visit not offered Positive Triage Questions: * Moderate pain (e.g., interferes with normal activities) and present > 3 days * Patient wants to be seen * All higher-acuity triage questions were negative Care Advice Discussed: * Reassurance and Education - Hand Pain * Pain Medicines * Pain Medicines - Extra Notes and Warnings * Expected Course * Reasons To Call Back - Moderate pain (such as interferes with normal activities) lasts over 3 days - Mild pain lasts over 7 days - Signs of infection occur (such as spreading redness, warmth, fever) - You become worse * Use a Cold Pack for Pain * Use Heat After 48 Hours for Pain * Telephone Encounter - Chris Hickman - 02/10/2025 8:57 AM EDT Symptoms: Hand or Wrist Swelling, Finger Pain - Not From Injury Outcome: Schedule an urgent appointment (within 1 hour) or talk to a nurse or provider soon Reason: Severe pain now The caller accepted this outcome. Contact pt at [phone] documented in this encounter Plan of Treatment Not on file documented as of this encounter Visit Diagnoses Not on filedocumented in this encounter Additional Health Concerns Assessment Noted Time PHQ-9 Depression Total Score: 2 12/30/19 23 2:19 PM EST documented as of this encounter Care Teams Metallurgical Analyst Relationship Specialty Start Date End Date Chuy Pabon MD [address] [place] [address] PCP - General Internal Medicine 01/17/17 documented as of this encounter
--- OUTSIDE RECORDS SUMMARY | 2025-02-12 16:06 | XMS_ITS | Encounter Summary ---
Author Organization [facility] Address [address] [place] [address] 7t [place] [address] Care Team Providers Care Complaint Manager Name Role Phone Chuy Pabon MD Primary Care Provider [phone] Reason for Referral * Neurology (Routine) - Authorized Specialty Diagnoses / Procedures Referred By Kellen marroquin Referred To Contact Diagnoses Bilateral hand pain Numbness and tingling in both hands Procedures Nerve conduction test Sharita Aquino ANP [address] [place] [address] Phone: tel: fax: [address] Phone: tel: fax: Referral ID Status Reason Start Date Expiration Date V isits Requested Visits Authorized [id number] Authorized 02/10/2025 02/10/2026 1 1 Reason for Visit * Reason Comments HAND NUMBNESS Encounter Details Date Type Department Care Team ([facility] st Contact Info) Description 02/10/2025 3:20 PM EDT Office Visit [facility] [address] [place], [place] [phone] Sharita Aquino ANP [address] [place], [place] [phone] Bilateral hand pain (Primary Dx); Numbness and tingling in both hands; Left wrist tendinitis; Right wrist tendonitis; Neck pain Social History Tobacco Use Types Packs/Day Years [...] PM EDT documented as of this encounter Last Filed Vital Signs Vital Sign Reading [...] 3.2 oz) 02/10/2025 3:19 PM EDT Height - - Body Mass Index 35.74 01/08/2025 3:44 PM EST documented in this encounter Progress Notes * REINIER Cook - 02/10/2025 3:20 PM EDT Alistair Leonard is 44 y.o. patient here today for sick visit. HPI Here today for bilateral hand numbness worse on R vs L but present in both. Assoc sx incl neck pain/upper back pain on R side. Pain sometimes radiates from R wrist up arm. Pain is worse when hands are dependent and when grasping anything. 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 Non-smoker Denies risk for . Review of Systems Constitutional: Negative for chills and fever. HENT: Negative for sore throat. Eyes: Negative for visual disturbance. Respiratory: Negative for cough and shortness of breath. Cardiovascular: Negative for chest pain. Gastrointestinal: Negative for constipation and diarrhea. Endocrine: Negative for polydipsia, polyphagia and polyuria. Genitourinary: Negative for dysuria. Musculoskeletal: Positive for neck pain. Neurological: Positive for weakness and numbness. Negative for dizziness. Patient Active Problem List Diagnosis Decreased hearing Dizziness Acute back pain Acute pain of right shoulder Chronic right shoulder pain Migraine Closed fracture of left ankle Allergic rhinitis Asthma Celiac disease Class 1 obesity Obesity Diarrhea Gastritis GERD (gastroesophageal reflux disease) Hard of hearing Pre-op examination Upper abdominal pain Migraines Objective BP 137/84 (BP Location: Left arm, Patient Position: Sitting, BP Cuff Size: Large adult) Pulse 62 Temp 97.8 ??F (36.6 ??C) (Temporal) Resp 17 Wt 228 lb 3.2 oz (104 kg) SpO2 98% BMI 35.74 kg/m?? Physical Exam Vitals reviewed. Constitutional: General: She is not in acute distress. Appearance: Normal appearance. She is not ill-appearing. HENT: Head: Normocephalic and atraumatic. Eyes: General: No scleral icterus. Extraocular Movements: Extraocular movements intact. Pupils: Pupils are equal, round, and reactive to light. Cardiovascular: Rate and Rhythm: Normal rate. Pulmonary: Effort: Pulmonary effort is normal. No accessory muscle usage or respiratory distress. Musculoskeletal: Comments: Pain w/ palpation upper R trapezius. ROM RUE limited by pain, unable to abduct > 90 degrees laterally. ++pam test bilaterally, worse on R; tick eradicator strength decreased bilaterally Skin: General: Skin is warm and dry. Neurological: Mental Status: She is alert and oriented to person, place, and time. Psychiatric: Mood and Affect: Mood normal. Behavior: Behavior normal. Diagnoses and all orders for this visit: Bilateral hand pain - Nerve conduction test; Future Numbness and tingling in both hands - Nerve conduction test; Future Left wrist tendinitis Applied wrist splint with good effect and advised to wear splints on both hands (has right splint) when doing any activity including sleeping. Recommend ice to wrists and Celebrex as below. Patient has stomach upset with naproxen and takes PPI daily. recommend to take celecoxib only with food and after having taken PPI. Right wrist tendonitis - celecoxib (CeleBREX) 100 MG capsule; Take 1 twice daily with food as needed for pain Neck pain - XR CERVICAL SPINE 2V; Future documented in this encounter Plan of Treatment Scheduled Orders Name Type Priority Associated Diagnoses Orde r Schedule XR CERVICAL SPINE 2V Imaging Routine Neck pain Expected: 02/10/2025, Expires: 02/10/2026 Nerve conduction test Neurology Routine Bilateral hand pain Numbness and tingling in both hands Expected: 02/10/2025 (Approximate), Expires: 02/10/2026 documented as of this encounter Visit Diagnoses Diagnosis Bilateral hand pain- Primary Numbness and tingling in both hands Left wrist tendinitis Right wrist tendonitis Neck pain Cervicalgia documented in this encounter Additional Health Concerns Assessment Noted Time PHQ-9 Depression Total Score: 2 12/30/19 23 2:19 PM EST documented as of this encounter Care Teams Complaint Manager Relationship Specialty Start Date End Date Chuy Pabon MD [address] [place] [address] PCP - General Internal Medicine 01/17/17 documented as of this encounter
--- OUTSIDE RECORDS SUMMARY | 2025-02-12 16:06 | XMS_ITS | Encounter Summary ---
Author Organization [employer] Address [address] [place] [address] 7 [place] [address] Care Team Providers Care Sales Lead Name Role Phone Chuy Pabon MD Primary Care Provider [phone] Reason for Visit * Reason Comments Med Refill Encounter Details Date Type Department Care Team ([facility] st Contact Info) Description 12/05/2024 Refill [facility] CHC MED & PEDS [address] [place] [address] Chuy Pabon MD 505 [place] [address] Seasonal allergic reaction Social History Tobacco Use [...] documented as of this encounter Care Teams Sales Lead Relationship Specialty Start Date End Date Chuy Pabon MD 505 [place] [address] PCP - General Internal Medicine 01/17/17 documented as of this encounter
--- OUTSIDE RECORDS SUMMARY | 2025-02-12 16:06 | XMS_ITS | Encounter Summary ---
Author Organization [employer] Address 75 [facility] 7t [place] [address] Care Team Providers Care Director Of Security Name Role Phone Chuy Pabon MD Primary Care Provider [phone] Encounter Details Date Type Department Care Team ([facility] st Contact Info) Description 01/31/2025 Population Health Risk Score [facility] (C3) Department [address] [phone] Provider, Population Health Generic Social History Tobacco Use Types Packs/Day Years [...] documented as of this encounter Care Teams Director Of Security Relationship Specialty Start Date End Date Chuy Pabon MD [address] [place] [address] PCP - General Internal Medicine 01/17/17 documented as of this encounter
--- OUTSIDE RECORDS SUMMARY | 2025-02-12 16:06 | XMS_ITS | Encounter Summary ---
Author Organization [employer] Address [address] [place] [address] 7 [place] [address] Care Team Providers Care Custodial Manager Name Role Phone Chuy Pabon MD Primary Care Provider [phone] Reason for Visit * Reason Comments Med Refill Encounter Details Date Type Department Care Team ([facility] Contact Info) Description 01/26/2025 Refill [facility] CHC MED & PEDS 505 [place] [address] Chuy Pabon MD 505 [place] [address] Social History Tobacco Use Types Packs/Day Years [...] documented as of this encounter Care Teams Custodial Manager Relationship Specialty Start Date End Date Chuy Pabon MD [address] [place] [address] PCP - General Internal Medicine 01/17/17 documented as of this encounter
--- OUTSIDE RECORDS SUMMARY | 2025-02-12 16:06 | XMS_ITS | Encounter Summary ---
Author Organization [employer] Address 75 [facility] 7 [place] [address] Care Team Providers Care Promotion Writer Name Role Phone Chuy Pabon MD Primary Care Provider [phone]- [phone] Reason for Visit * Reason Onset Date Comments Letter for School/Work 10/16/2023 Encounter Details Date Type Department Care Team ([facility] Contact Info) Description 10/16/2023 Telephone [facility] MEDICINE [address] [place] [address] Chuy Pabon MD 505 [place] [address] Letter for School/Work Social History Tobacco Use Types Packs/Day Years [...] encounter Miscellaneous Notes * Telephone Encounter - Irish Chapman RN - 10/17/2023 11:04 AM EST Noted. Thank you. * Telephone Encounter - Irish Chapman RN - 10/16/2023 10:05 AM EST Please review message below and advise if extended work can be generated for pt to desired start date in a month? 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 documented in this encounter Plan of Treatment Not on file documented as of this encounter Visit Diagnoses Not on filedocumented in this encounter Additional Health Concerns Assessment Noted Time PHQ-9 Depression Total Score: 2 12/30/19 23 2:19 PM EST documented as of this encounter Care Teams Promotion Writer Relationship Specialty Start Date End Date Chuy Pabon MD [address] [place] [address] PCP - General Internal Medicine 01/17/17 documented as of this encounter
--- OUTSIDE RECORDS SUMMARY | 2025-02-12 16:06 | XMS_ITS | Encounter Summary ---
Author Organization [employer] Address 75 [facility] 7 [place] [address] Care Team Providers Care Caterer Helper Name Role Phone Chuy Pabon MD Primary Care Provider [phone]- [phone] Reason for Visit * Reason Onset Date Comments Appointment Request 11/07/2023 Encounter Details Date Type Department Care Team ([facility] Contact Info) Description 11/07/2023 Telephone [facility] MEDICINE [address] [place] [address] Chuy Pabon MD 505 [place], [place] [phone] Appointment Request Social History Tobacco Use Types Packs/Day Years [...] encounter Miscellaneous Notes * Telephone Encounter - Stefany Soto - 11/07/2023 3:15 PM EST Tc from pt requesting a f/u appt with PCP documented in this encounter Plan of Treatment Not on file documented as of this encounter Visit Diagnoses Not on filedocumented in this encounter Additional Health Concerns Assessment Noted Time PHQ-9 Depression Total Score: 2 12/30/19 23 2:19 PM EST documented as of this encounter Care Teams Caterer Helper Relationship Specialty Start Date End Date Chuy Pabon MD [address] [place] [address] PCP - General Internal Medicine 01/17/17 documented as of this encounter
--- OUTSIDE RECORDS SUMMARY | 2025-02-12 16:06 | XMS_ITS | Encounter Summary ---
Author Organization [employer] Address [address] [place] [address] [place] [address] Care Team Providers Care Publication Designer Name Role Phone Chuy Pabon MD Primary Care Provider [phone] Reason for Visit * Reason Comments Med Refill Encounter Details Date Type Department Care Team (Late st Contact Info) Description 12/17/2022 Refill [facility] MEDICINE 230 [place], [place] [phone] Chuy Pabon MD [address] [place] [address] Vitamin deficiency (Primary Dx) Social History Tobacco Use Types Packs/Day Years [...] as of this encounter Visit Diagnoses Diagnosis Vitamin deficiency- Primary Unspecified vitamin deficiency documented in this encounter Care Teams Publication Designer Relationship Specialty Start Date End Date Chuy Pabon MD 505 [place] [address] PCP - General Internal Medicine 01/17/17 documented as of this encounter
== END 2025-02-12 13:28 | disposition home or self-care (01) ==
LOC: HO.XRAY 13:27
PROVIDERS: PCP Internal Medicine; Visit Provider Nurse Practitioner Primary Care
DX: M54.2 Cervicalgia (principal); K59.00 Constipation, unspecified; K21.9 Gastro-esophageal reflux disease without esophagitis; Z91.011 Allergy to milk products
CPT/HCPCS: 72040; 99212

== ENCOUNTER → 2025-02-12 13:34 | Outpatient (BNV) | payer MEDICAID, SELFPAY | PROVIDERS: PCP Internal Medicine; Visit Provider Radiology Diagnostic Radiology | DX: M50.30 Other cervical disc degeneration, unspecified cervical region (principal) | CPT/HCPCS: 72040 ==

== ENCOUNTER 2025-02-12 13:56 | Outpatient (AMB) | payer MEDICAID, SELFPAY ==
[2025-02-12 13:58] VITALS: BP 121/64; PULSE 67; BMI 36.3
--- NOTE | 2025-02-12 13:58 | A.OFFVIS_ITS ---
Vital Signs 02/12/25 13:58 Height 5 ft 6 in Weight 225 lb BMI 36.3 BP 121/64 Blood Pressure Location Lt brachial Position Sitting Pulse 67 Intake Visit Reasons: s/p colonoscopy Intake Note: Patient in office today follow up s/p colonoscopy. CC: Patient denies having any new GI symptoms today. Train System Operator Required: No Accompanied by: Self / Same As Patient Allergies sulfamethoxazole [From Bactrim] Allergy (Severe, Verified 02/12/25 14:22) rash trimethoprim [From Bactrim] Allergy (Severe, Verified 02/12/25 14:22) rash acetaminophen [From Percocet] Adverse Reaction (Severe, Verified 02/12/25 14:22) Fainting naproxen Adverse Reaction (Severe, Verified 02/12/25 14:22) abdominal pain omeprazole Adverse Reaction (Severe, Verified 02/12/25 14:22) Diarrhea oxycodone [From Percocet] Adverse Reaction (Severe, Verified 02/12/25 14:22) Fainting septra Allergy (Severe, Uncoded 01/21/25 09:18) rash HPI HPI s/p colonoscopy: Details: Assessment & Plan (1) Upper abdominal pain: Code(s): R10.10 - Upper abdominal pain, unspecified Category: Medical (2) Diarrhea: Comment: She may have been in response to omeprazole as well as some other variables Code(s): R19.7 - Diarrhea, unspecified Category: Medical (3) GERD (gastroesophageal reflux disease): Code(s): K21.9 - Gastro-esophageal reflux disease without esophagitis Category: Medical (4) Celiac disease: Code(s): K90.0 - Celiac disease Category: Medical (5) Pre-op examination: Code(s): Z01.818 - Encounter for other preprocedural examination Category: Medical Plan She tolerated the procedure well. She actually was aware of the results and started avoiding gluten on her own. It is too soon to tell how much this is going to affect her symptoms because it really is a big adjustment for her. We discussed joining a support group because this is where she will get the best advice of what gluten free foods or actually edible and what to avoid in terms of potential cross contamination which is always a difficult subject. Because of the diarrhea the endoscopist suggested a colonoscopy which of course we will order. The sucralfate upset her stomach but the pantoprazole seems to be helping her better in terms of general symptom control. Obviously we will continue this. I am going to order repeat TTE IgA and a RAST panel to try to exclude any other possible allergens contributing to her symptoms. There are no prior problems with anesthesia or sedation. Her asthma is well controlled and she denies any cardiac problems. There are no infectious disease problems. There is no known family history of colon cancer or polyps. Will have her follow-up after her colonoscopy. Orders Rast Allergen 09/20/24 K90.0 - Celiac disease Transglutaminase IgA 09/20/24 K90.0 - Celiac disease Transglutaminase Ab IgG 09/20/24 K90.0 - Celiac disease Colonoscopy - GI Use Only 09/20/24 R19.7 - Diarrhea, unspecified, Z01.818 - Encounter for other preprocedural examination Medications: New peg 3350-electrolytes 236-22.74-6.74 -5.86 gram (Golytely) until fecal effluent is clear; do not exceed a total volume of 2,000 mL 240 mL PO Q10M 4,000 mL 0RF 1 day Z12.11 - Encounter for screening for malignant neoplasm of colon bisacodyl (Dulcolax (bisacodyl)) 10 mg (2 x 5 mg) PO BEDTIME 4 tabs 0RF 2 days LABS: Laboratory Tests 12/04/24 12:38 Tiss Transglutamin IgG <1.0 Tiss Transglutamin IgA <1.0 RAST panel shows mild allergy to cows milk COLONOSCOPY 01/21/25 Findings: Terminal Ileum-normal, bx taken random bx takn from right, left and rectum in seperate jars Cecum: 3-4 mm sessile polyp removed with cold forceps Ascending Colon: normal Transverse Colon -normal Descending Colon:normal Sigmoid Colon: normal Rectum: Retroflexion with small internal hemorrhoids seen, grade I Anorectum - normal Intervention: cold forceps Impression and Post Procedure Diagnosis: colon polyp internal hemorrhoids Plan: High fiber diet leaflet Avoid straining at stool, epsom salts and sitz bath, anusol supps or cream Repeat Colonoscopy in 5-6 years if adenomatous polyp, 10 yrs if non adenomatous or earlier if clinically indicated BIOPSY Received: 01/21/25 Diagnosis A. Terminal ileum, biopsy: Ileal mucosa with no specific change. B. Colon, cecal polyp: Tubular adenoma; negative for high-grade dysplasia and carcinoma. C. Colon, random right, biopsy: Colonic mucosa with reactive lymphoid aggregates and no specific change; no evidence of microscopic colitis. D. Colon, random left, biopsy: Colonic mucosa with lymphoid aggregates and no specific change; no evidence of microscopic colitis. E. Colon, rectal biopsy: Colonic mucosa with lymphoid aggregates and no specific change; no evidence of microscopic colitis. TODAY'S VISIT Her diarrhea is not as bad as she tries to be gluten free and now she will see how avoiding cow's milk helps as well. She tells me that her mother then told her you could not drink much milk as a baby,she had to water it all down! She also notes that stress causes her bloating. She thought that drinking lactaid milk would help, but I explain that this does not help in th eface of a milk allergy. She will consider soy, oat or almond milk. She is also water fasting on Sundays and trying to relax and meditate. ROV 6 mos. PFSH Medical History Asthma Celiac disease GERD (gastroesophageal reflux disease) Heart murmur Migraine Surgical History History of esophagogastroduodenoscopy (EGD) Hx of dilation and curettage Hx of tubal ligation History of ear surgery Family History Family/Other Breast cancer Maternal Grandmother Ovarian cancer Father Heart abnormality Social History Are you a primary critical care clinical nurse specialist to a significant other at home: No Do you presently have visiting nurse or other home services: No Alcohol intake: never Patient Tobacco Use Status: Never used Tobacco Review of Systems Const Denies fatigue, Denies fever(s), Denies night sweats, Denies poor appetite and Denies weight loss ENT Reports Normal hearing present, Denies dental pain, Denies dysphagia, Denies hearing loss, Denies mouth pain, Denies odynophagia, Denies throat swelling, Denies tongue swelling and Reports other (Dentition adequate) Card Reports no additional complaints Resp Reports no additional complaints GI Details: Denies abdominal pain, Denies melena, Reports bloating, Denies hematochezia, Denies constipation, Denies GI cramping, Denies dysphagia, Denies excessive flatus, Denies early satiety, Denies heartburn, Denies diarrhea, Reports loose stools, Denies nausea, Denies odynophagia, Denies vomiting and Denies hematemesis Musc Reports arthralgias and Reports stiffness Skin/Breast Denies pruritus, Denies lesions, Denies rash and Denies jaundice Neuro Reports Normal hearing present, Denies Abnormal speech present and Reports paresthesias Endo Denies fatigue Aller/Immun Denies throat swelling and Denies tongue swelling Physical Exam Const General: cooperative, no acute distress, well developed and well groomed Nutritional Appearance: well nourished and overweight Orientation/consciousness: oriented to person, oriented to place and oriented to time Limitations: No language barrier HEENT Head: Yes normocephalic and Yes atraumatic Eyes General: appearance normal, both eyes and all related structures Pupils: Equal, round and reactive pupils present Neck Neck: Yes normal visual inspection and Yes no lymphadenopathy Thyroid: Thyroid normal Resp Effort & Inspection: normal respiratory effort and able to speak in complete sentences Auscultation: clear to auscultation bilaterally Cardio Rate: regular rate Rhythm: regular rhythm Heart sounds: Normal, physiologic split S2 sound present Peripheral pulses: radial pulses present and posterior tibial pulses present GI Inspection: No distended, No Abdominal panniculus present and Yes obesity Palpation (GI): Soft to palpation, nontender, no guarding, not rigid and No hepatosplenomegaly present Percussion: Yes normal to percussion Auscultation: normal bowel sounds Rectal Exam - Female: deferred Skin General skin exam: no rashes or lesions noted, turgor normal, skin not dry, no jaundice, No spider nevi and no striae Rashes: no rashes Nails: normal Neuro General: oriented to person, oriented to place and oriented to time Cranial nerves: Yes Equal, round and reactive pupils present and Yes Normal hearing present Speech: No Abnormal speech present Extrem General: Yes normal to inspection, No clubbing, No cyanosis and No edema Psych Appearance: grossly normal and well kempt Mental Status: mental status grossly normal Speech and movement: Normal speech and movement present Affect: normal affect Attitude: cooperative Thought process: Normal thought process present and not confabulating Thought content: Normal thought content present Insight: Fair insight present (Psych) Judgement: Fair judgement present (Psych) Assessment & Plan Assessment & Plan (1) Celiac disease: Code(s): K90.0 - Celiac disease Category: Medical (2) GERD (gastroesophageal reflux disease): Code(s): K21.9 - Gastro-esophageal reflux disease without esophagitis Category: Medical (3) Cow's milk allergy: Code(s): Z91.011 - Allergy to milk products Category: Medical Plan Her diarrhea is not as bad as she tries to be gluten free and now she will see how avoiding cow's milk helps as well. She tells me that her mother then told her you could not drink much milk as a baby,she had to water it all down! She also notes that stress causes her bloating. She thought that drinking lactaid milk would help, but I explain that this does not help in th eface of a milk allergy. She will consider soy, oat or almond milk. She is also water fasting on Sundays and trying to relax and meditate. ROV 6 mos. Coding Level of Care Code Est Pt Level 3 (73865) Diagnoses Celiac disease K90.0 GERD (gastroesophageal reflux disease) K21.9 Cow's milk allergy Z91.011
--- OUTSIDE RECORDS SUMMARY | 2025-02-12 16:46 | XMS_ITS | Encounter Summary ---
Author Organization [employer] Address 75 [facility] 7t [place] [address] Care Team Providers Care Cupola Operator Name Role Phone Chuy Pabon MD Primary Care Provider [phone] Encounter Details Date Type Department Care Team ([facility] st Contact Info) Description 01/31/2025 Population Health Risk Score [facility] (C3) Department [address] [phone] Provider, Population Health Generic Social History Tobacco [...] documented as of this encounter Care Teams Cupola Operator Relationship Specialty Start Date End Date Chuy Pabon MD [address] [place] [address] PCP - General Internal Medicine 01/17/17 documented as of this encounter
--- OUTSIDE RECORDS SUMMARY | 2025-02-12 16:46 | XMS_ITS | Encounter Summary ---
Author Organization [employer] Address [address] [place] [address] 7 [place] [address] Care Team Providers Care Logistics Director Name Role Phone Chuy Pabon MD Primary Care Provider [phone] Reason for Visit * Reason Comments Med Refill Encounter Details Date Type Department Care Team ([facility] st Contact Info) Description 12/05/2024 Refill [facility] CHC MED & PEDS [address] [place] [address] Chuy Pabon MD [address] [place] [address] Seasonal allergic reaction Social History Tobacco Use [...] documented as of this encounter Care Teams Logistics Director Relationship Specialty Start Date End Date Chuy Pabon MD [address] [place] [address] PCP - General Internal Medicine 01/17/17 documented as of this encounter
--- OUTSIDE RECORDS SUMMARY | 2025-02-12 16:46 | XMS_ITS | Encounter Summary ---
Author Organization [employer] Address [address] [place] [address] 7 [place] [address] Care Team Providers Care Manager Activities Name Role Phone Chuy Pabon MD Primary Care Provider +[phone]- [phone] Encounter Details Date Type Department Care Team (Latest Contact Info) Description 04/15/2021 Abstract [facility] CONVERSIONS Dental, Provider, DDS Social History [...] on filedocumented in this encounter Care Teams Manager Activities Relationship Specialty Start Date End Date Chuy Pabon MD [address] [place] [address] PCP - General Internal Medicine 01/17/17 documented as of this encounter
--- OUTSIDE RECORDS SUMMARY | 2025-02-12 16:46 | XMS_ITS | Encounter Summary ---
Author Organization [employer] Address [address] [place] [address] 7 [place] [address] Care Team Providers Care Elevator Tender Name Role Phone Chuy Pabon MD Primary Care Provider [phone] Reason for Visit * Reason Comments Med Refill Encounter Details Date Type Department Care Team ([facility] Contact Info) Description 01/26/2025 Refill [facility] CHC MED & PEDS [address] [place] [address] Chuy Pabon MD [address] [place] [address] Social History Tobacco Use Types Packs/Day Years [...] documented as of this encounter Care Teams Elevator Tender Relationship Specialty Start Date End Date Chuy Pabon MD [address] [place] [address] PCP - General Internal Medicine 01/17/17 documented as of this encounter
--- OUTSIDE RECORDS SUMMARY | 2025-02-12 16:46 | XMS_ITS | Encounter Summary ---
Author Organization [employer] Address 75 [facility] 7 [place] [address] Care Team Providers Care Emg Technician Name Role Phone Chuy Pabon MD Primary Care Provider +1 [phone] Reason for Visit * Reason Onset Date Comments Nurse Triage 02/10/2025 Encounter Details Date Type Department Care Team ([facility] st Contact Info) Description 02/10/2025 Telephone [facility] MEDICINE [address] [place] [address] Chuy Pabon MD 505 [place], [place] [phone] Nurse Triage Social History Tobacco Use Types [...] can be taken. No available apts in [facility] till 02/12/25. Pt requests melanie seen today and is offered to come to the [facility] and accepts this offer. Hours given open today till 8pm. Address [address] [facility] in [place]. Pt agrees with disposition . Home care [...] caller accepted this outcome. Contact pt at [phone] documented in this encounter Plan of Treatment Not on file documented as of this encounter Visit Diagnoses Not on filedocumented in this encounter Additional Health Concerns Assessment Noted Time PHQ-9 Depression Total Score: 2 12/30/19 23 2:19 PM EST documented as of this encounter Care Teams Emg Technician Relationship Specialty Start Date End Date Chuy Pabon MD [address] [place] [address] PCP - General Internal Medicine 01/17/17 documented as of this encounter
--- OUTSIDE RECORDS SUMMARY | 2025-02-12 16:46 | XMS_ITS | Clinical Summary ---
Author Organization [employer] Address 75 [facility] 7t [place] [address] Care Team Providers Care Mica Plate Layer Hand Name Role Phone Chuy Pabon MD Primary Care Provider +1- [phone] Allergies Active Allergy Reactions Criticality Noted Date [...] dizziness on Monday, reports was seen in [facility] for w/u, reports had head imaging and [...] Description 02/10/2025 3:20 PM EDT Office Visit [facility] [address] [place] [address] Sharita Aquino ANP Bilateral hand pain (Primary Dx); Numbness and tingling in both hands; Left wrist tendinitis; Right wrist tendonitis; Neck pain 02/10/2025 Telephone [facility] MEDICINE [address] [place] [address] Chuy Pabon MD Nurse Triage 01/31/2025 Population Health Risk Score [facility] (C3) Department [address] [phone] Provider, Population Health Generic 01/26/2025 Refill [facility] CHC MED & PEDS [address] [place] [address] Chuy Pabon MD 01/23/2025 Orders Only [facility] MED & PEDS [address] [place] [address] Provider, MD Shanice 01/09/2025 Refill [facility] MED & PEDS [address] [place] [address] Chuy Pabon MD Upper respiratory tract infection, unspecified type 01/08/2025 3:40 PM EST Office Visit [facility] CHC MED & PEDS [address] [place] [address] Georgia Salas MD Acute non-recurrent maxillary sinusitis (Primary Dx) 01/08/2025 Refill [facility] MED & PEDS [address] [place] [address] Chuy Pabon MD Upper respiratory tract infection, unspecified type 01/08/2025 Travel 01/08/2025 Telephone [facility] MEDICINE [address] [place] [address] Chuy Pabon MD Nurse Triage 12/05/2024 Refill [facility] CH[facility] MED & PEDS [address] [place] [address] Chuy Pabon MD Seasonal allergic reaction 12/03/2024 Refill [facility] MED & PEDS [address] [place] [address] Chuy Pabon MD from Last 3 Months [...] 1 AM EST 01/21/2025 10:55 AM EST [facility] LABS - 01/22/2025 3:19 PM EST ----- ------- Name: Alistair Leonard ?Age/Sex: 44/F ? [facility] 1980 [id number] [id number] ?? Attend Dr: Day Hurtado MD ?Re01/21/25 ?Status: DEP [facility] [place] Location: HO.SSS ?Disch: ? ----- ------- SPEC : [id number] ? RECD: 01/21/25-5 ? STATUS: ??SOUT ? REQ NUM: [id number] ? CESAR: 01/21/25-1011 ? SUBM DR: Day [...] Leonard ?Age/Sex: 44/F ? : 1980 Unit#: [id number] ?? Attend Dr: Day Huratdo MD ?Re01/21/25 ?Status: DEP SDC ? Location: HO.SSS ?Disch: ? ----- ------- SPEC : [id number] ? RECD: 01/21/25-1054 ? STATUS: ??SOUT ? REQ NUM: [id number] ? CESAR: 01/21/25-1011 ? SUBM DR: Day [...] examination, 3 pieces in cassette E. ??([facility]) Copies To: ?? Chuy Pabon MD ?? [facility] ?? [address] ?? [place] [address] ?? [phone] ?? Day Hurtado MD ?? [facility] ?? [address] ?? [place] [address] ?? [phone] ----- ------- Signed (signature on file) [address] 01/22/25 1519 ? ----- ------- ? END OF REPORT ? us Generic External Data Provider LAB BLOOD ORDERAB LES Final Result [facility] [address] [place] [address] [phone] * Colonoscopy (01/21/2025 9:23 AM EST) us Historical Provider HEALTH MAINTENANCE Final Result * Rast Allergen (12/04/2024 12:38 PM EST) Rast Allergen SEE NOTE [facility] Comment:SEE SCANNED RESULTS IN EMR 12/04/2024 12:3 8 PM EST 12/04/2024 12:38 PM EST Generic External Data Provider HISTORICAL/NON OR DERABLE LABS Final Result Performing Organization Address [facility]/ZIP Co de Phone Number [facility] [address] [place] [address] [phone] * Tissue Transglutaminase (tTG) Antibody (IgG) (12/04/2024 12:38 PM EST) Pathologist [facility] Tissue Transglutaminase Antibody IgG <1.0 U/mL [facility] Comment:Value Interpretation ----- <15.0 Antibody not detected> or = 15.0 Antibody detectedTHIS TEST WAS PERFORMED AT:[employer] [place] [id number] DUARTE MD 12/04/2024 12:3 8 PM EST 12/04/2024 12:38 PM EST Generic External Data Provider LAB BLOOD ORDERAB LES Final Result Performing Organization Address [facility]/ZIP Co de Phone Number [facility] [address] [place] [phone] * Tissue Transglutaminase Antibody, IgA (12/04/2024 12:38 PM EST) Pathologist [facility] Transglutaminase IgA <1.0 U/mL [facility] Comment:Value Interpretation ----- <15.0 Antibody not detected> or = 15.0 Antibody detectedTHIS TEST WAS PERFORMED AT:[facility] [place] [id number] DUARTE MD 12/04/2024 12:3 8 PM EST 12/04/2024 12:38 PM EST us Generic External Data Provider LAB BLOOD ORDERAB LES Final Result [facility] [address] [place] [address] [phone] * BI Mammogram Screening Tomosynthesis Bilateral (02/12/2024 12:55 PM EDT) Anatomical Region Laterality Modality Breast Bilateral Mammography 02/12/2024 12:5 5 PM EDT Narrative 03/12/2024 5:05 AM EDT ? [facility] ? [address] ?[place] [address] ? Mammography Report ? Signed ? Patient: Mitch Leonardjitendrajose m C ?MR#: [id number] ?? [id number] ? : 1980 ?Acct:[id number] ? Age/Sex: 43 / F ?ADM Date: 02/12/24 ? Loc: HO.MAMMO ? Attending Dr: Chuy Pabon MD ? Ordering Physician: Chuy Pabon MD ?Results: 1 ?? Negative ? Date of Service: 02/12/24 ?Follow Up: 1 Year From Orig ?? inal Mammogram ? Procedure(s): MM tomosynthesis screening BI ?? Accession Number(s): [id number] ? cc: Chuy Pabon MD ? EXAMINATION: [...] 0501 ? DD/ 1255 ? TD/TT: ? Human Resources File Clerk: ? Procedure Note Katy Harrington - 03/12/2024 [facility] [address] [place] [address] [place] [address] Mammography Report Signed Patient: Alistair Leonard CMR#: [id number] : 1980Acct:[id number] Age/Sex: 43 / FADM Date: 02/12/24 Loc: HO.MAMMO Attending Dr: Chuy Pabon MD Ordering Physician: Chuy Pabon MDResults: 1 Negative Date of Service: 02/12/24Follow Up: 1 Year From Orig inal Mammogram Procedure(s): MM tomosynthesis screening BI Accession Number(s): [id number] cc: Chuy Pabon MD EXAMINATION: MM SCREENING [...] in OV> 03/12/24 0501 DD/ 1255 TD/TT: Human Resources File Clerk: Chuy Pabon MD IMG BI PROCEDURES Final Res ult * THINPREP TIS PAP AND HPV mRNA E6/E7 REFLEX HPV 16,18/45 (10/19/2021 10:24 AM EST) Clinical Information: [employer] [facility] COMMENT SEE COMMENT FOUNDATI ON [...] has been evaluated with computer assisted technology. [employer] SYSTEM Duct Layer Supervisor: SEE COMMENT [facility] Comment: SXA, CT(ASCP) CT screening location: [address] ??[address] HPV nRNA E6/E7 Not Detected Not Detected [facility] Comment: Methodology: Hand Grinder-Mediated Amplification This assay detects E6/E7 viral messenger RNA (mRNA) from 14 high-risk HPV types (16,18,31,33,35,39,45,51,52,56,58,59,66,68). ? The analytical performance characteristics of this assay have been determined by [employer]. The modifications have not been cleared or approved by the FDA. This assay has been validated pursuant to the CLIA regulations and is used for clinical purposes. ?? For additional information, please refer to http://education.[employer]/faq/OPG217e3 (This link if provided for information/ educational [...] Nuñez CNM LAB PATHOLOGY ORDERABLES Final Result [facility] [address] from Last 3 Months or Most Recently Relevant to Health Maintenance Insurance [employer] C3 Care Teams Mica Plate Layer Hand Relationship Specialty Start Date End Date Chuy Pabon MD [address] [place] [address] PCP - General Internal Medicine 01/17/17
--- OUTSIDE RECORDS SUMMARY | 2025-02-12 16:46 | XMS_ITS | Encounter Summary ---
Author Organization [employer] Address [address] [facility] [address] [address] 7t [place] [address] Care Team Providers Care Spreader Operator Name Role Phone Chuy Pabon MD Primary Care Provider [phone] Encounter Details Date Type Department Care Team ([facility] st Contact Info) Description 01/23/2025 Orders Only [facility] CHC MED & PEDS [address] [place] [address] ProviderShanice MD Social History Tobacco Use Types [...] documented as of this encounter Care Teams Spreader Operator Relationship Specialty Start Date End Date Chuy Pabon MD [address] [place] [address] PCP - General Internal Medicine 01/17/17 documented as of this encounter
--- OUTSIDE RECORDS SUMMARY | 2025-02-12 16:46 | XMS_ITS | Encounter Summary ---
Author Organization [employer] Address [address] [place] [address] [place] [address] Care Team Providers Care Treadle Cut Off Saw Operator Name Role Phone Chuy Pabon MD Primary Care Provider [phone]- [phone] Encounter Details Date Type Department Care Team ([facility] Contact Info) Description 12/07/2022 Orders Only [facility] [address] [place], [place] [phone] Chuy Pabon MD [address] [place], [place] [phone] Social History Tobacco Use Types Packs/Day Years [...] on filedocumented in this encounter Care Teams Treadle Cut Off Saw Operator Relationship Specialty Start Date End Date Chuy Pabon MD [address] [place] [address] PCP - General Internal Medicine 01/17/17 documented as of this encounter
--- OUTSIDE RECORDS SUMMARY | 2025-02-12 16:46 | XMS_ITS | Encounter Summary ---
Author Organization [employer] Address [address] [place] [address] [place] [address] Care Team Providers Care Bio Medical Technician Name Role Phone Chuy Pabon MD Primary Care Provider [phone]- [phone] Reason for Visit * Reason Comments Med Refill Encounter Details Date Type Department Care Team (Late st Contact Info) Description 12/17/2022 Refill [facility] MEDICINE [address] [place], [place] [phone] Chuy Pabon MD [address] [place] [address] Vitamin deficiency (Primary Dx) Social History Tobacco [...] deficiency documented in this encounter Care Teams Bio Medical Technician Relationship Specialty Start Date End Date Chuy Pabon MD [address] [place] [address] PCP - General Internal Medicine 01/17/17 documented as of this encounter
--- OUTSIDE RECORDS SUMMARY | 2025-02-12 16:46 | XMS_ITS | Encounter Summary ---
Author Organization [employer] Address [address] [place] [address] 7t [place] [address] Care Team Providers Care Lawyer Real Estate Name Role Phone Chuy Pabon MD Primary Care Provider [phone] Reason for Referral * Neurology (Routine) - Authorized Specialty Diagnoses / Procedures Referred By Kellen marroquin Referred To Contact Diagnoses Bilateral hand pain Numbness and tingling in both hands Procedures Nerve conduction test Sharita Aquino ANP [address] [place] [address] Phone: tel: fax: [address] Phone: tel: fax: Referral ID Status Reason Start Date Expiration Date V isits Requested Visits Authorized [id number] Authorized 02/10/2025 02/10/2026 1 1 Reason for Visit * Reason Comments HAND NUMBNESS Encounter Details Date Type Department Care Team ([facility] st Contact Info) Description 02/10/2025 3:20 PM EDT Office Visit [facility] [address] [place], [place] [phone] Sharita Aquino ANP [address] [place], [place] [phone] Bilateral hand pain (Primary Dx); Numbness and [...] laterally. ++pam test bilaterally, worse on R; test designer strength decreased bilaterally Skin: General: Skin is [...] documented as of this encounter Care Teams Lawyer Real Estate Relationship Specialty Start Date End Date Chuy Pabon MD [address] [place] [address] PCP - General Internal Medicine 01/17/17 documented as of this encounter
--- OUTSIDE RECORDS SUMMARY | 2025-02-12 16:46 | XMS_ITS | Encounter Summary ---
Author Organization [employer] Address [address] [place] [address] 7 [place] [address] Care Team Providers Care Universal Winding Machine Operator Name Role Phone Chuy Pabon MD Primary Care Provider [phone] Encounter Details Date Type Department Care Team ([facility] st Contact Info) Description 01/04/2023 Abstract [facility] CHC MED & PEDS [address] [place] [address] Chuy Pabon MD [address] [place] [address] Social History Tobacco Use Types Packs/Day Years [...] documented as of this encounter Care Teams Universal Winding Machine Operator Relationship Specialty Start Date End Date Chuy Pabon MD [address] [place] [address] PCP - General Internal Medicine 01/17/17 documented as of this encounter
--- OUTSIDE RECORDS SUMMARY | 2025-02-12 16:47 | XMS_ITS | Encounter Summary ---
Author Organization [employer] Address 75 [facility] 7t [place] [address] Care Team Providers Care Clinical Leader Name Role Phone Chuy Pabon MD Primary Care Provider [phone] Reason for Visit * Reason Onset Date Comments Med Refill 10/13/2023 Encounter Details Date Type Department Care Team ([facility] Contact Info) Description 10/13/2023 Refill [facility] CHC MED & PEDS [address] [place] [address] Debbie Clark MD [address] [place] [address] Social History Tobacco Use Types Packs/Day Years [...] documented as of this encounter Care Teams Clinical Leader Relationship Specialty Start Date End Date Chuy Pabon MD [address] [place] [address] PCP - General Internal Medicine 01/17/17 documented as of this encounter
--- OUTSIDE RECORDS SUMMARY | 2025-02-12 16:47 | XMS_ITS | Encounter Summary ---
Author Organization [employer] Address [address] [place] [address] 7 [place] [address] Care Team Providers Care Manager Wound Care Name Role Phone Chuy Pabon MD Primary Care Provider [phone] Reason for Visit * Reason Comments Med Refill Encounter Details Date Type Department Care Team ([facility] st Contact Info) Description 06/28/2023 Refill [facility] MEDICINE [address] [place] [address] Chuy Pabon MD 505 [place] [address] Social History Tobacco Use Types Packs/Day Years [...] documented as of this encounter Care Teams Manager Wound Care Relationship Specialty Start Date End Date Chuy Pabon MD [address] [place] [address] PCP - General Internal Medicine 01/17/17 documented as of this encounter
--- OUTSIDE RECORDS SUMMARY | 2025-02-12 16:47 | XMS_ITS | Encounter Summary ---
Author Organization [employer] Address 75 [facility] 7 [place] [address] Care Team Providers Care Shotgun Shell Loading Machine Operator Name Role Phone Chuy Pabon MD Primary Care Provider [phone] Reason for Visit * Reason Onset Date Comments Appointment Request 11/07/2023 Encounter Details Date Type Department Care Team ([facility] Contact Info) Description 11/07/2023 Telephone [facility] MEDICINE [address] [place] [address] Chuy Pabon MD [address] [place], [place] [phone] Appointment Request Social History Tobacco Use Types [...] documented as of this encounter Care Teams Shotgun Shell Loading Machine Operator Relationship Specialty Start Date End Date Chuy Pabon MD [address] [place] [address] PCP - General Internal Medicine 01/17/17 documented as of this encounter
--- OUTSIDE RECORDS SUMMARY | 2025-02-12 16:47 | XMS_ITS | Encounter Summary ---
Author Organization [employer] Address [address] [place] [address] 7 [place] [address] Care Team Providers Care Practicing Urologist Name Role Phone Chuy Pabon MD Primary Care Provider [phone] Reason for Visit * Reason Onset Date Comments Nurse Triage 09/19/2023 Encounter Details Date Type Department Care Team ([facility] Contact Info) Description 09/19/2023 Telephone [facility] CHC MED & PEDS [address] [place] [address] Chuy Pabon MD [address] [place] [address] Nurse Triage Social History Tobacco Use Types [...] and injured her left foot.Pt went to [facility] ED that night and was found to [...] fu and get a referral to an network desktop support specialist. Protocol Used: Ankle and Foot Injury (Adult) Protocol-Based Disposition: Pt was seen at [facility] ED on 09/17/23- Pt. Has fu appt on 09/20/23 at 2pm in [facility]. Will send this note to care coordinators to get ED notes for appt. Video visit offer not recorded Positive Triage Questions: *ankle fracture according to pt. Via Xray at [facility] ED on 09/14/23. * Can't stand [...] Severe pain now, pt was seen at [facility] on 09/17 for a fractured ankle. Pt also requesting anextension for time off of work and a referral to ortho The caller accepted this outcome Please contact pt at [phone] documented in this encounter Plan of Treatment Not on file documented as of this encounter Visit Diagnoses Not on filedocumented in this encounter Additional Health Concerns Assessment Noted Time PHQ-9 Depression Total Score: 2 12/30/19 23 2:19 PM EST documented as of this encounter Care Teams Practicing Urologist Relationship Specialty Start Date End Date Chuy Pabon MD [address] [place] [address] PCP - General Internal Medicine 01/17/17 documented as of this encounter
--- OUTSIDE RECORDS SUMMARY | 2025-02-12 16:47 | XMS_ITS | Encounter Summary ---
Author Organization [employer] Address 75 [facility] 7 [place] [address] Care Team Providers Care Industrial Engineering Technologist Name Role Phone Chuy Pabon MD Primary Care Provider [phone] Reason for Visit * Reason Onset Date Comments Letter for School/Work 10/16/2023 Encounter Details Date Type Department Care Team ([facility] Contact Info) Description 10/16/2023 Telephone [facility] MEDICINE [address] [place] [address] Chuy Pabon MD [address] [place] [address] Letter for School/Work Social History Tobacco Use [...] require physical therapy patient is will to case picker excuses. documented in this encounter Plan of Treatment Not on file documented as of this encounter Visit Diagnoses Not on filedocumented in this encounter Additional Health Concerns Assessment Noted Time PHQ-9 Depression Total Score: 2 12/30/19 23 2:19 PM EST documented as of this encounter Care Teams Industrial Engineering Technologist Relationship Specialty Start Date End Date Chuy Pabon MD [address] [place] [address] PCP - General Internal Medicine 01/17/17 documented as of this encounter
--- OUTSIDE RECORDS SUMMARY | 2025-02-12 16:47 | XMS_ITS | Encounter Summary ---
Author Organization [employer] Address [address] [place] [address] 7 [place] [address] Care Team Providers Care Home Office Representative Name Role Phone Chuy Pabon MD Primary Care Provider [phone] Reason for Visit * Reason Onset Date Comments Med Refill 09/25/2024 Encounter Details Date Type Department Care Team ([facility] st Contact Info) Description 09/25/2024 Refill [facility] CHC MED & PEDS [address] [place] [address] Chuy Pabon MD 505 [place] [address] Seasonal allergic reaction Social History Tobacco Use [...] documented as of this encounter Care Teams Home Office Representative Relationship Specialty Start Date End Date Chuy Pabon MD [address] [place] [address] PCP - General Internal Medicine 01/17/17 documented as of this encounter
== END 2025-02-12 14:51 | disposition home or self-care (01) ==
LOC: HO.HGI 13:57
PROVIDERS: PCP Internal Medicine; Visit Provider Nurse Practitioner
DX: K90.0 Celiac disease (principal); K21.9 Gastro-esophageal reflux disease without esophagitis; Z91.011 Allergy to milk products
CPT/HCPCS: 99213

== ENCOUNTER 2025-03-04 09:42 | Outpatient (REF) | payer MEDICAID, SELFPAY ==
--- NOTE | 2025-03-04 09:47 | EMG_ITS ---
PROCEDURES: Electromyography and nerve conduction study. FINDINGS: Bilateral median and ulnar motor and sensory studies were performed. Bilateral radial sensory studies were performed and bilateral lateral and median antecubital brachial sensory studies were performed. Paraspinal muscles were tested with a needle. IMPRESSION: Mild bilateral median neuropathy across carpal tunnel. MD ARCADIO Yanez/DANIELLE / [id number]
--- OUTSIDE RECORDS SUMMARY | 2025-03-04 11:00 | XMS_ITS | Encounter Summary ---
Author Organization [employer] Address [address] [facility] 7 [place] [address] Care Team Providers Care Facing Baster Name Role Phone Chuy Pabon MD Primary Care Provider [phone] Reason for Visit * Reason Onset Date Comments Nurse Triage 02/10/2025 Encounter Details Date Type Department Care Team ([facility] st Contact Info) Description 02/10/2025 Telephone [facility] [address] [place] [address] Chuy Pabon MD [address] [place], [place] [phone] Nurse Triage Social History Tobacco Use Types [...] can be taken. No available apts in [facility] till 02/12/25. Pt requests melanie seen today and is offered to come to the [facility] and accepts this offer. Hours given open today till 8pm. Address [address] [facility] in [place]. Pt agrees with disposition . Home care [...] caller accepted this outcome. Contact pt at [phone] documented in this encounter Plan of Treatment Not on file documented as of this encounter Visit Diagnoses Not on filedocumented in this encounter Additional Health Concerns Assessment Noted Time PHQ-9 Depression Total Score: 2 12/30/19 23 2:19 PM EST documented as of this encounter Care Teams Facing Baster Relationship Specialty Start Date End Date Chuy Pabon MD [address] [place] [phone] PCP - General Internal Medicine 01/17/17 documented as of this encounter
--- OUTSIDE RECORDS SUMMARY | 2025-03-04 11:00 | XMS_ITS | Clinical Summary ---
Author Organization [employer] Address [address] [place] [address] 7t [place] [address] Care Team Providers Care Peat Shredder Tender Name Role Phone Chuy Pabon MD Primary Care Provider [phone] Allergies Active Allergy Reactions Criticality Noted Date Comments Acetaminophen Syncope High 08/08/2024 Gluten Meal Diarrhea 02/17/2025 Lactose Diarrhea 02/17/2025 Naproxen 07/12/2017 Omeprazole Diarrhea High 09/20/2023 Oxycodone Syncope High 08/08/2024 Sulfamethoxazole Rash High 03/16/2018 Sulfamethoxazole-Trimethoprim Rash High 2023 Other Reaction(s): SWELLS Trimethoprim Rash High 03/16/2018 Medications pantoprazole (ProtoNix) [...] TIMES A WEEK 10 tablet 1 09/08/20 Active montelukast (Singulair) 10 MG tablet Take [...] 30 mL 12 01/08/20 25 026 Active celecoxib (CeleBREX) 100 MG capsuleIndicat ions:Right wrist tendonitis Take 1 twice daily with food as needed for pain 60 capsule 02/11/20 25 Active gabapentin (Neurontin) 300 MG capsule Take 1 capsule (300 mg) by mouth at bedtime. 90 capsule 1 02/15/20 25 Active ibuprofen 600 MG tablet Take 1 tablet (600 mg) by mouth every 8 (eight) hours if needed for moderate pain. 60 tablet 11/07/20 23 025 Discontinued(In effective) Acetaminophen Extra Strength 500 MG tabletIndicati ons:Upper respiratory tract infection, unspecified type Place 1 tablet (500 mg) into mouth between cheek and gum 3 times daily. 90 tablet 01/10/20 25 025 ibuprofen 600 MG tablet TAKE 1 TABLET BY MOUTH EVERY 8 HOURS NEEDED FOR MODERATE PAIN 60 tablet 01/28/20 25 025 Discontinued(In effective) gabapentin (Neurontin) 300 MG capsule 300 mg. 06/21/20 24 025 Discontinued(Re order (will not trigger notification to Pharmacy)) predniSONE (Deltasone) 20 MG tablet Take 2 tablets (40 mg) by mouth Once per day for 5 days. 10 tablet 02/19/20 25 025 Active Problems Problem Noted Date Diagnosed Date Carpal tunnel syndrome of right wrist 02/17/2025 Assessment & Plan (02/17/2025 10:00 PM EDT): New splint given today Wear as much as tolerated, especially at night To do light stretching activities multiple times daily PT referral given NSAIDs prn Allergic rhinitis 01/23/2025 Asthma 01/23/2025 Celiac disease [...] dizziness on Monday, reports was seen in [facility] for w/u, reports had head imaging and [...] Encounters Date Type Department Care Team Description 02/21/2025 Telephone [facility] [address] [place] [address] Mathew Burk ANP 02/20/2025 Orders Only [facility] [address] [place] [address] Yasmin Rodriguez MD Carpal tunnel syndrome of right wrist (Primary Dx) 02/20/2025 Telephone [facility] [address] [place] [address] Chuy Pabon MD Referral 02/18/2025 11:15 AM EDT Telemedicine [facility] [address] [place] [address] Zackary Baldwin MD Carpal tunnel syndrome of right wrist (Primary Dx) 02/18/2025 Travel 02/17/2025 Telephone [facility] [address] [place] [phone] Chuy Pabon MD Nurse Triage 02/14/2025 1:40 PM EDT Office Visit [facility] [address] [place] [address] Yasmin Rodriguez MD Carpal tunnel syndrome of right wrist (Primary Dx) 02/14/2025 Orders Only [facility] [address] [place] [address] Mathew Burk ANP 02/14/[address] [facility] [address] [place] [address] [phone] Chuy Pabon MD recall appt (Pt needs appt) 02/14/2025 Telephone [facility] [address] [place] [phone] Carla Hernandez, TERESA Pt Hx for reconcile 02/14/[address] [facility] [address] [place] [phone] Chuy Pabon MD recall appt (Pt needs appt) 02/13/2025 Telephone [facility] [address] [place] [address] Mathew Burk ANP 02/10/2025 3:20 PM EDT Office Visit [facility] [address] [place] [address] Mathew Burk ANP Bilateral hand pain (Primary Dx); Numbness and tingling in both hands; Left wrist tendinitis; Right wrist tendonitis; Neck pain 02/10/2025 Telephone [facility] [address] [place] [address] Chuy Pabon MD Nurse Triage 01/31/2025 Population Health Risk Score [facility] (C3) Department [address] [place] [address] [phone] Provider, Population Health Generic 01/26/2025 Refill [facility] [address] [place] [address] Chuy Pabon MD 01/23/2025 Orders Only [facility] [address] [place] [address] ProviderShanice MD 01/09/2025 Refill [facility] [address] [place] [address] Chuy Pabon MD Upper respiratory tract infection, unspecified type 01/08/2025 3:40 PM EST Office Visit [facility] [address] [place] [address] Georgia Salas MD Acute non-recurrent maxillary sinusitis (Primary Dx) 01/08/2025 Refill [facility] [address] [place] [address] Chuy Pabon MD Upper respiratory tract infection, unspecified type 01/08/2025 Travel 01/08/2025 Telephone [facility] [address] [place], [place] [phone] Chuy Pabon MD Nurse Triage 12/05/2024 Refill [facility] [address] [place] [address] Chuy Pabon MD Seasonal allergic reaction from Last 3 Months Immunizations Name Administration [...] Sign Reading Time Taken Comments Blood Pressure 114/84 02/14/2025 1:22 PM EDT Pulse 72 02/14/2025 1:22 PM EDT Temperature 36.8 ??C (98.2 ??F) 02/14/2025 1:22 PM ED T Respiratory Rate 16 02/14/2025 1:22 PM EDT Oxygen Saturation 98% 02/14/2025 1:22 PM EDT Inhaled Oxygen Concentration - - Weight 103 kg (226 lb) 02/14/2025 1:22 PM EDT Height 170.2 cm (5' 7 ) 01/08/2025 3:44 PM EST Body Mass Index 35.4 01/08/2025 3:44 PM EST Plan of Treatment [...] 2024 9, 08/16/2018 Pap Smear 10/19/2024 10/19/2021 Mammogram 02/11/2026 02/12/2024, 12/23/2021 Tobacco Screening 02/17/2026 02/17/2025 Cervical Cancer Screening 10/19/2026 HPV/Cotest 10/19/2026 10/19/2021, [...] Procedure Name Priority Date/Time Associated Diagnosis Comments XR CERVICAL SPINE 2V Routine 02/12/2025 1:34 PM EDT Neck pain HEMATOXYLIN AND EOSIN STAIN Routine 01/21/2025 10:11 [...] Recently Relevant to Health Maintenance Results * XR CERVICAL SPINE 2V (02/12/2025 1:34 PM EDT) Anatomical Region Laterality Modality Abdomen Radiographic Lorraine ging 02/12/2025 1:34 PM EDT Narrative 02/13/2025 7:41 AM EDT ? [facility] ?[address] ?[place] [address] ?XRay Report ? Signed ? Patient: Leonard,Caryne C ?MR#: [id number] ?? [id number] ? : 1980 ?Acct:[id number] ? Age/Sex: 44 / F ?ADM Date: 03/26/25 ? Loc: HO.XRAY ? Attending Dr: Mathew Burk MERCHANT MILLER ? Ordering Physician: MATHEW BURK MERCHANT MILLER ?? Date of Service: 02/12/25 ?? Procedure(s): XR cervical spine 2V ?? Accession Number(s): [id number] ? cc: Chuy Pabon MD; MATHEW BURK NP ? EXAMINATION: ??XR CERVICAL SPINE 2-3 VIEWS ? HISTORY: Neck pain, ?radiculopathy ? COMPARISON: There are no prior studies for comparison. ? FINDINGS: ??AP, lateral, and open-mouth odontoid views of the cervical ?? spine are submitted. ??Osseous mineralization is normal. ??Seven cervical ?? vertebral bodies are identified maintaining normal height without ?? evidence of fracture or subluxation. There is straightening of the ?? normal cervical lordosis. ??There is mild to moderate degenerative disc ?? disease at the C5-6 and C6-7 levels, with disc space narrowing and ?? osteophyte formation. Evaluation of the odontoid process of C2 is ?? limited on the open-mouth view. ??There is no prevertebral soft tissue ?? swelling. ? XR/XR cervical spine 2V ?? IMPRESSION: ?? Straightening of the normal cervical lordosis. Degenerative changes of ?? the lower cervical spine as described. ? Electronically signed by: ??Wili Rushing MD ??02/13/2025 07:38 AM EDT ?? RP ? Dictated By: ?Wili Rushing MD ? Signed By: ?<Electronically signed by Wili Rushing MD in OV> ?02/13/25 0738 ? DD/ 1334 ? TD/TT: 02/12/25 1348 ? Color Grinder: ? Procedure Note Juany, Image - 02/13/2025 [place] [phone] XRay Report Signed Patient: Alistair Leonard CMR#: [id number] 872 : 1980Acct:[id number] Age/Sex: 44 / FADM Date: 02/12/25 Loc: DONNY Attending Dr: Mathew Burk NP Ordering Physician: MATHEW BURK NP Date of Service: 02/12/25 Procedure(s): XR cervical spine 2V Accession Number(s): [id number] cc: Chuy Pabon MD; MATHEW BURK NP EXAMINATION: XR CERVICAL SPINE 2-3 VIEWS HISTORY: Neck pain, ?radiculopathy COMPARISON: There are no prior studies for comparison. FINDINGS: AP, lateral, and open-mouth odontoid views of the cervical spine are submitted. Osseous mineralization is normal. Seven cervical vertebral bodies are identified maintaining normal height without evidence of fracture or subluxation. There is straightening of the normal cervical lordosis. There is mild to moderate degenerative disc disease at the C5-6 and C6-7 levels, with disc space narrowing and osteophyte formation. Evaluation of the odontoid process of C2 is limited on the open-mouth view. There is no prevertebral soft tissue swelling. XR/XR cervical spine 2V IMPRESSION: Straightening of the normal cervical lordosis. Degenerative changes of the lower cervical spine as described. Electronically signed by: Wili Rushing MD 02/13/2025 07:38 AM EDT RP Dictated By: Wili Rushing MD Signed By: <Electronically signed by Wili Rushing MD in OV> 02/13/25 0738 DD/ 1334 TD/TT: 02/12/25 1348 Color Grinder: Mathew HILLS IMG XR PROCEDURES Final Result * Hematoxylin and Eosin Stain (01/21/2025 10:11 AM EST) 01/21/2025 10:1 1 AM EST 01/21/2025 10:55 AM EST [facility] LABS - 01/22/2025 3:19 PM EST ----- ------- Name: Alistair Leonard ?Age/Sex: 44/F ? : 1980 Unit#: [id number] ?? Attend Dr: Day Hurtado MD ?Re01/21/25 ?Status: DEP SDC ? Location: HO.SSS ?Disch: ? ----- ------- SPEC : [id number] ? RECD: 01/21/25 ? STATUS: ??SOUT ? REQ NUM: [id number] ? CESAR: 01/21/25-1 ? SUBM DR: Day Hurtado MD ? ENTERED: ??01/21/25-1118 ?SP TYPE: Surgical ? OTHR DR: Chyu Pabon MD ? ORDERED: ??HE Stain/15, Gross [...] Leonard ?Age/Sex: 44/F ? : 1980 Unit#: [id number] ?? Attend Dr: Day Hurtado MD ?Re01/21/25 ?Status: DEP SDC ? Location: HO.SSS ?Disch: ? ----- ------- SPEC : [id number] ? RECD: 01/21/25 ? STATUS: ??SOUT ? REQ NUM: [id number] ? CESAR: 01/21/25-1011 ? SUBM DR: Day Hurtado MD ? ENTERED: ??01/21/25-1118 ?SP TYPE: Surgical ? OTHR DR: Chuy Pabon MD ? ORDERED: ??ROSITA Stain/15, Gross Micro L4/5 ? Gross Description [...] microscopic examination, 3 pieces in cassette E. ??([facility]) Copies To: ?? Chuy Pabon MD ?? [facility] ?? [address] ?? [place] [address] ?? [phone] ?? Day Hurtado MD ?? [facility] ?? [address] ?? [place] [address] ?? [phone] ----- ------- Signed (signature on file) [address] 01/22/25 1519 ? ----- ------- ? END OF REPORT ? us Generic External Data Provider LAB BLOOD ORDERAB LES Final Result [facility] [address] [place], [place] [phone] * Colonoscopy (01/21/2025 9:23 AM EST) Historical Provider HEALTH MAINTENANCE Final Result * Rast Allergen (12/04/2024 12:38 PM EST) Rast Allergen SEE NOTE [facility] Comment:SEE SCANNED RESULTS IN EMR 12/04/2024 12:3 8 PM EST 12/04/2024 12:38 PM EST Generic External Data Provider HISTORICAL/NON OR DERABLE LABS Final Result Performing Organization Address [facility] de Phone Number [facility] [address] [place] [phone] * Tissue Transglutaminase (tTG) Antibody (IgG) (12/04/2024 12:38 PM EST) Pathologist [facility] Tissue Transglutaminase Antibody IgG <1.0 U/mL [facility] Comment:Value Interpretation ----- <15.0 Antibody not detected> or = 15.0 Antibody detectedTHIS TEST WAS PERFORMED AT:[address] [place] [id number] DUARTE MD 12/04/2024 12:3 8 PM EST 12/04/2024 12:38 PM EST Generic External Data Provider LAB BLOOD ORDERAB LES Final Result Performing Organization Address [facility] Co de Phone Number [facility] [address] [place] [phone] * Tissue Transglutaminase Antibody, IgA (12/04/2024 12:38 PM EST) Transglutaminase IgA <1.0 U/mL [facility] Comment:Value Interpretation ----- <15.0 Antibody not detected> or = 15.0 Antibody detectedTHIS TEST WAS PERFORMED AT:[facility] [address] [id number] DUARTE MD 12/04/2024 12:3 8 PM EST 12/04/2024 12:38 PM EST us Generic External Data Provider LAB BLOOD ORDERAB LES Final Result [facility] [address] [place] [address] [phone] * BI Mammogram Screening Tomosynthesis Bilateral (02/12/2024 12:55 PM EDT) Anatomical Region Laterality Modality Breast Bilateral Mammography 02/12/2024 12:5 5 PM EDT Narrative 03/12/2024 5:05 AM EDT ? [facility] [place] ? [address] ?[place] [address] ? Mammography Report ? Signed ? Patient: Leonard,Ivelesse C ?MR#: [id number] ?? 872 ? : 1980 ?Acct:[id number] ? Age/Sex: 43 / F ?ADM Date: 03/25/24 ? Loc: HO.MAMMO ? Attending Dr: Chuy Pabon MD ? Ordering Physician: Chuy Pabon MD ?Results: 1 ?? Negative ? Date of Service: 03/25/24 ?Follow Up: 1 Year From Orig ?? inal Mammogram ? Procedure(s): MM tomosynthesis screening BI ?? Accession Number(s): [id number] ? cc: Chuy Pabon MD ? EXAMINATION: [...] 0501 ? DD/ 1255 ? TD/TT: ? Color Grinder: ? Procedure Note Katy Harrington - 03/12/2024 [facility] [address] [place] [address] Dr. [place], [place] [address] Mammography Report Signed Patient: Alistair Leonard CMR#: [id number] 872 : 1980Acct:[id number] Age/Sex: 43 / FADM Date: 02/12/24 Loc: HO.MAMMO Attending Dr: Chuy Pabon MD Ordering Physician: Chuy Pabon MDResults: 1 Negative Date of Service: 02/12/24Follow Up: 1 Year From [facility] ina Mammogram Procedure(s): MM tomosynthesis screening BI Accession Number(s): [id number] cc: Chuy Pabon MD EXAMINATION: MM SCREENING [...] in OV> 03/12/24 0501 DD/ 1255 TD/TT: Color Grinder: Chuy Pabon MD IMG BI PROCEDURES Final Res ult * THINPREP TIS PAP AND HPV mRNA E6/E7 REFLEX HPV 16,18/45 (10/19/2021 10:24 AM EST) Clinical Information: 124 [facility] COMMENT SEE COMMENT [facility]OUND[facility] ON [...] has been evaluated with computer assisted technology. [facility] Paperhanger Assistant: SEE COMMENT [facility] Comment: SXA, CT(ASCP) CT screening location: [address] ??[address] HPV nRNA E6/E7 Not Detected Not Detected [facility] Comment: Methodology: Hotel Custodian-Mediated Amplification This assay detects E6/E7 viral messenger RNA (mRNA) from 14 high-risk HPV types (16,18,31,33,35,39,45,51,52,56,58,59,66,68). ? The analytical performance characteristics of this assay have been determined by [facility]. The modifications have not been cleared or approved by the FDA. This assay has been validated pursuant to the CLIA regulations and is used for clinical purposes. ?? For additional information, please refer to http://education.iDubba/faq/GUK020p9 (This link if provided for information/ educational purposes only.) Interpretation/Re sult: Negative for intraepithelial lesion or malignancy. [facility] LMP: 09/26/2021 [facility] Prev. BX: NONE GIVEN [facility] Prev. PAP: BEENA/NEG 2018 [facility] SOURCE: Cervix [facility] Statement Of Adequacy: SEE COMMENT [facility] Comment: Satisfactory for evaluation. Endocervical/transformation zone component present. 10/19/2021 10:2 4 AM EST us Tamiko Nuñez CNM LAB PATHOLOGY ORDERABLES Final Result [facility] [address] from Last 3 Months or Most Recently Relevant to Health Maintenance Insurance [email or web address] C3 Care Teams Peat Shredder Tender Relationship Specialty Start Date End Date Chuy Pabon MD [address] [place] [address] PCP - General Internal Medicine 01/17/17
--- OUTSIDE RECORDS SUMMARY | 2025-03-04 11:01 | XMS_ITS | Encounter Summary ---
Author Organization [employer] Address [address] [place] [address] 7 [place] [address] Care Team Providers Care Optical Designer Name Role Phone Chuy Pabon MD Primary Care Provider [phone] Reason for Visit * Reason Comments Med Refill Encounter Details Date Type Department Care Team ([facility] st Contact Info) Description 12/05/2024 Refill [facility] [address] [place] [address] Chuy Pabon MD [address] [place] [address] Seasonal allergic reaction Social History Tobacco Use [...] documented as of this encounter Care Teams Optical Designer Relationship Specialty Start Date End Date Chuy Pabon MD [address] [place] [address] PCP - General Internal Medicine 01/17/17 documented as of this encounter
--- OUTSIDE RECORDS SUMMARY | 2025-03-04 11:01 | XMS_ITS | Encounter Summary ---
Author Organization [employer] Address [address] [place] [address] [place] [address] Care Team Providers Care Nurse Practitioner Hospitalist Name Role Phone Chuy Pabon MD Primary Care Provider [phone] Reason for Visit * Reason Comments Med Refill Encounter Details Date Type Department Care Team (Late st Contact Info) Description 12/17/2022 Refill [facility] [address] [place], [place] [phone] Chuy Pabon MD [address] [place] [address] Vitamin deficiency (Primary Dx) Social History Tobacco [...] deficiency documented in this encounter Care Teams Nurse Practitioner Hospitalist Relationship Specialty Start Date End Date Chuy Pabon MD [address] [place] [address] PCP - General Internal Medicine 01/17/17 documented as of this encounter
--- OUTSIDE RECORDS SUMMARY | 2025-03-04 11:01 | XMS_ITS | Encounter Summary ---
Author Organization [employer] Address [address] [place] [address] 7 [place] [address] Care Team Providers Care Stock Analyst Name Role Phone Chuy Pabon MD Primary Care Provider [phone] Encounter Details Date Type Department Care Team (Latest Contact Info) Description 04/15/2021 Abstract [facility] CONVERSIONS Dental, Provider, DDS Social History Tobacco [...] on filedocumented in this encounter Care Teams Stock Analyst Relationship Specialty Start Date End Date Chuy Pabon MD [address] [place] [address] PCP - General Internal Medicine 01/17/17 documented as of this encounter
--- OUTSIDE RECORDS SUMMARY | 2025-03-04 11:01 | XMS_ITS | Encounter Summary ---
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 documented in this encounter Plan of Treatment Not on file documented as of this encounter Visit Diagnoses Not on filedocumented in this encounter Additional Health Concerns Assessment Noted Time PHQ-9 Depression Total Score: 2 12/30/19 23 2:19 PM EST documented as of this encounter Care Teams Inspector Rag Sorting Relationship Specialty Start Date End Date Chuy Pabon MD [address] [place] [phone] PCP - General Internal Medicine 01/17/17 documented as of this encounter
--- OUTSIDE RECORDS SUMMARY | 2025-03-04 11:01 | XMS_ITS | Encounter Summary ---
Author Organization [employer] Address [address] [facility] [address] [place] [address] Care Team Providers Care Oracle Soa Architect Name Role Phone Chuy Pabon MD Primary Care Provider [phone] Encounter Details Date Type Department Care Team ([facility] st Contact Info) Description 01/23/2025 Orders Only [facility] [address] [place] [address] ProviderShanice MD Social History Tobacco Use Types [...] documented as of this encounter Care Teams Oracle Soa Architect Relationship Specialty Start Date End Date Chuy Pabon MD [address] [place] [address] PCP - General Internal Medicine 01/17/17 documented as of this encounter
--- OUTSIDE RECORDS SUMMARY | 2025-03-04 11:01 | XMS_ITS | Encounter Summary ---
Author Organization [employer] Address [address] [place] [address] [place] [address] Care Team Providers Care Drying Room Supervisor Name Role Phone Chuy Pabon MD Primary Care Provider [phone]- [phone] Encounter Details Date Type Department Care Team ([facility] Contact Info) Description 12/07/2022 Orders Only [facility] [address] [place], [place] [phone] Chuy Pabon MD [address] [place], [place] [phone] Social History Tobacco Use Types Packs/Day Years [...] on filedocumented in this encounter Care Teams Drying Room Supervisor Relationship Specialty Start Date End Date Chuy Pabon MD [address] [place] [address] PCP - General Internal Medicine 01/17/17 documented as of this encounter
--- OUTSIDE RECORDS SUMMARY | 2025-03-04 11:01 | XMS_ITS | Encounter Summary ---
Author Organization [employer] Address [address] [place] [address] 7 [place] [address] Care Team Providers Care Conflict Resolution Professional Name Role Phone Chuy Pabon MD Primary Care Provider [phone] Reason for Visit * Reason Onset Date Comments Nurse Triage 09/19/2023 Encounter Details Date Type Department Care Team ([facility] Contact Info) Description 09/19/2023 Telephone [facility] MED & PEDS [address] [place] [address] Chuy Pabon MD [address] [place] [address] Nurse Triage Social History Tobacco Use Types [...] and injured her left foot.Pt went to [facility] ED that night and was found [...] fu and get a referral to an maintenance specialist. Protocol Used: Ankle and Foot Injury (Adult) Protocol-Based Disposition: Pt was seen at [facility] ED on 09/17/23- Pt. Has fu appt on 09/20/23 at 2pm in [facility]. Will send this note to care coordinators to get ED notes for appt. Video visit offer not recorded Positive Triage Questions: *ankle fracture according to pt. Via Xray at [facility] ED on 09/14/23. * Can't stand (bear [...] Severe pain now, pt was seen at [facility] on 09/17 for a fractured ankle. Pt also requesting anextension for time off of work and a referral to ortho The caller accepted this outcome Please contact pt at [phone] documented in this encounter Plan of Treatment Not on file documented as of this encounter Visit Diagnoses Not on filedocumented in this encounter Additional Health Concerns Assessment Noted Time PHQ-9 Depression Total Score: 2 12/30/19 23 2:19 PM EST documented as of this encounter Care Teams Conflict Resolution Professional Relationship Specialty Start Date End Date Chuy Pabon MD [address] [place] [address] PCP - General Internal Medicine 01/17/17 documented as of this encounter
--- OUTSIDE RECORDS SUMMARY | 2025-03-04 11:01 | XMS_ITS | Encounter Summary ---
Author Organization [employer] Address [address] [facility] 7t [place] [address] Care Team Providers Care Fire Prevention Research Engineer Name Role Phone Chuy Pabon MD Primary Care Provider [phone] Reason for Visit * Reason Onset Date Comments Med Refill 10/13/2023 Encounter Details Date Type Department Care Team ([facility] Contact Info) Description 10/13/2023 Refill [facility] CHC MED & PEDS [address] [place] [address] Debbie Clark MD 505 [place] [address] Social History Tobacco Use Types Packs/Day Years [...] documented as of this encounter Care Teams Fire Prevention Research Engineer Relationship Specialty Start Date End Date Chuy Pabon MD [address] [place] [address] PCP - General Internal Medicine 01/17/17 documented as of this encounter
--- OUTSIDE RECORDS SUMMARY | 2025-03-04 11:01 | XMS_ITS | Encounter Summary ---
Author Organization [employer] Address [address] [facility] 7 [place] [address] Care Team Providers Care Art Tracer Name Role Phone Chuy Pabon MD Primary Care Provider [phone] Reason for Visit * Reason Onset Date Comments Appointment Request 11/07/2023 Encounter Details Date Type Department Care Team ([facility] Contact Info) Description 11/07/2023 Telephone [facility] MEDICINE [address] [place] [address] Chuy Pabon MD [address] [place], [place] [phone] Appointment Request Social History Tobacco Use Types [...] documented as of this encounter Care Teams Art Tracer Relationship Specialty Start Date End Date Chuy Pabon MD [address] [place] [address] PCP - General Internal Medicine 01/17/17 documented as of this encounter
--- OUTSIDE RECORDS SUMMARY | 2025-03-04 11:01 | XMS_ITS | Data Portability ---
Author Organization [place] [facility], Allergy Address [address] [address] Care Team Providers Care Turret Punch Operator Name Role Phone GABRIELLE BROOKS Primary Care Provider Assessment Encounter Date Assessment Date Assessment LastModified by Organization Details LastModified Time 02/14/2025 02/14/2025 44yo female presents for evaluation of the ears and nose. She has been using Flonase and Loratadine with minimal relief in allergy symptoms. Nasal examination demonstrates inferior turbinate hypertrophy, left septal deviation, and mucoid rhinorrhea. TMs with general retraction. Audiometric testing demonstrates normal sloping to mild mixed hearing loss. Tympanometry is type C. History and examination are consistent with significant allergic rhinitis. Recommend allergy testing. Recommend patient continue saline irrigations, okpy-jad-yfrhuky allergy regimen, and trial of oxymetazoline 2 sprays twice daily for 3 days only for ETD. [email or web address] Not available 02/14/2025 17:15:35 Plan of Treatment Reminders Order Date Submit Date Provider Last Modified By Organization Details Last Modified Time Details Appointments None recorded. Lab None recorded. Referral None recorded. Procedures allergy testing, skin prick (PROC) 2024 025 [email or web address] Not available 12:15:35 intraderma l allergy skin testing (PROC) 2024 025 [email or web address] Not available 12:15:35 pulmonary function test procedure (PROC) 2024 025 [email or web address] Not available 12:15:35 pulse oximetry (PROC) 2024 025 [email or web address] Not available 03/31/202 5 12:15:35 Surgeries None recorded. Imaging None recorded. Medication Orders oxymetazol ine 0.05 % nasal spray 2024 025 [id number], [address] [facility], [place], [address], 5 16:23:52 Patient TargetsNo targets recorded. Patient InstructionsNo instructions recorded. Reason for Referral None Reported. Results Created Date Observation Date Name Description Value Unit Range Abnormal Flag Note LastModifiedBy Organization Detail LastModifiedTime 02/15/2003/06/2017 audio gram No observ ation record ed. [email or web address] Not Available 01/19 16:34:37 02/15/20 audio gram No observ ation record ed. [facility] Not Available 2024 16:37:12 Result Notes None recorded. Problems Name Problem SNOMED Code Status Onset Date Resolution Date Notes Provider Name and Address Organization Details Recorded Time Disorder of left Eustachi an tube 88841220679 69857 Active 2022 Other specifie d disorder s of Eustachi an tube, left ear; Note: Date Diagnose d: 09/01/20 3:49 PM (H69.82) Not Available [facility] 4 02:29:00 Sensorin eural hearing loss in right ear 57824761597 100 Active 2016 Sensorin eural hearing loss, unilater al, right ear, with restrict ed hearing on the contrala teral side; Note: Date Diagnose d: 7 12:20 PM (H90.A21 ) Not Available [facility] 4 02:29:19 Migraine 93415911 Active 2022 Other migraine , not intracta ble, without status migraino xander; Note: Date Diagnose d: 09/01/20 3:49 PM (G43.809 ) Not Available [facility] 4 02:29:02 Marginal perforat ion of tympanic membrane 40058579 Completed 201606/21/2024 Other marginal perforat ions of tympanic membrane , left ear; Note: Date Diagnose d: 7 12:20 PM (H72.2X2 ) Not Available [facility] 4 02:29:04 Uncompli cated moderate persiste nt asthma 518266589 Active 2022 Moderate persiste nt asthma, uncompli cated; Note: Date Diagnose d: 09/01/20 23 3:49 PM (J45.40) Not Available [facility] 4 02:29:14 Disconti nuity of ear ossicles 43822940 Active 2016 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 ; Note: Date Diagnose d: 7 3:29 PM (H74.22) Not Available [facility] 4 02:29:13 Dislocat ion of ossicle of left ear 46169323834 98977 Active 2016 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 ; Note: Date Diagnose d: 7 3:29 PM (H74.22) Not Available [facility] 4 02:29:13 Obesity 128097259 Active 2022 Other obesity; Note: Date Diagnose d: 09/01/20 23 3:49 PM (E66.8) Not Available [facility] 4 02:29:04 Mixed conducti ve and sensorin eural hearing loss of left ear 48906202609 107 Active 2016 Mixed conducti ve and sensorin eural hearing loss, unilater al, left ear with restrict ed hearing on the contrala teral side; Note: Date Diagnose d: 7 12:20 PM (H90.A32 ) Not Available [facility] 4 02:29:07 Bilatera l disorder of Eustachi an tubes 33825889226 [address] Active 2016 Other specifie d disorder s of Eustachi an tube, bilatera l; Note: Changed from H74.12 to H69.83 (10/26/20 17 1:36 PM) , Date Diagnose d: 7 1:35 PM (H74.12) Not Available [facility] 4 02:29:01 Allergic rhinitis 73984552 Active 2022 Other allergic rhinitis ; Note: Date Diagnose d: 09/01/20 3:49 PM (J30.89) Not Available [facility] 4 02:28:51 Follow-u p visit Active 2017 Encounte r for follow-u p examinat ion after complete d treatmen t for conditio ns other than malignan t neoplasm ; Note: Date Diagnose d: 8 2:13 PM (Z09) Medica l surveill ance followin g complete d treatmen t; Note: Date Diagnose d: 09/07/20 17 11:32 AM (Z09) ; Start Date : 09/07/20 17 Not Available [facility] 4 02:29:05 Snoring 04541241 Active 2022 Snoring; Note: Date Diagnose d: 09/01/20 3:50 PM (R06.83) Not Available [facility] 4 02:28:54 Partial loss of ear ossicles 98340724 Active 2016 Partial loss of ear ossicles , left ear; Note: Date Diagnose d: 07/25/2017 5:23 PM (H74.322 ) Not Available [facility] 4 02:28:51 Mixed conducti ve and sensorin eural hearing loss, bilatera l 497084782 Active 2024 HECTOR JUDGE MA, CCC-A [address] [facility],[place] [address], [place], [address] , [facility] - [facility] 5 15:23:19 Non-panchito rgic rhinitis 17116605787 1 Active 2024 ABDIRAHMAN WALTON PA-C [address] [place] [address],[place] [address], [place], [address] , [facility] 5 16:13:09 Seasonal allergic rhinitis 465995632 Active 2024 ABDIRAHMAN WALTON PA-C [address] [place] [address],[place] [address], [place], [address] , [facility] - [facility] 5 16:13:09 Problem Notes None recorded. Procedures Surgical History Date Name Laterality Status Provider Name and Address Organization Details Recorded Time 02/14/2025 Comp Audio with Tymps (47131 & 85160) completed HECTOR JUDGE MA, [facility] [address] [place] [address], [place], [address], [facility] - [facility] 02/14/2025 15:23:30 Imaging Results Imaging Date Name Status LastModified by Organiz ation Details LastModified Time 03/06/2017 audiogram completed [email or web address] Information n ot available 02/14/2025 16:34:37 02/14/2025 audiogram completed [facility] Information no t available 02/14/2025 16:37:12 Procedure Notes None recorded. Medical Equipment None Reported. Allergies Allergen ID Allergen Name Allergen Category Reaction Reaction Severity Criticality Documentation Date Start Date Code Code System Note Provider Name and Address Organization Details Recorded Time 754548 wheat gluten extract food Not available Not available Not available 02/14/20252024 45971 81 RxNorm Kimberlee spence [place] - [facility] 5 15:42:38 845857 Milk (substanc e) food,medi cation Not available Not available Not available 02/14/20252024 89995 002 SNOMED Kimberlee spence [place] - [facility] 15:42:38 40685 Latex (substanc e) environme nt,medica tion other Not available Not available 04/02/2024 74239 8007 SNOMED React ion: Unkno wn; Not Available [facility] 4 00:53:36 78039 Bactrim medicatio n other Not available Not available 04/02/2024 04517 9 RxNorm React ion: Unkno wn; Not Available [facility] 4 00:25:24 08302 lactase medicatio n other Not available Not available 04/02/2024 07638 RxNorm React ion: Unkno wn; Not Available [facility] 4 00:53:46 26596 naproxen medicatio n other Not available Not available 04/02/2024 7258 RxNorm React ion: unkno wn, unspe cifie d;; Not Available [facility] 4 00:53:48 Medications Name Sig Start Date Stop Date Status Note LastModified by Organization Details LastModified Time Nasal [place] (oxymetaz oline) 0.05 % USE 2 SPRAYS IN EACH NOSTRIL TWICE A DAY FOR 3 DAYS FOR EUSTACHI AN TUBE DYSFUNCT ION active Not Available Not Available No t Available azithromy zoe 250 mg tablet TAKE 2 TABS DAY AND THEN 1 TAB DAILY active Not Available Not Available No t Available sucralfat e 1 gram tablet TAKE 1 TABLET BY MOUTH EVERY DAY AT NOON active Not Available Not Available No t Available prednison e 20 mg tablet TAKE 2 TABLETS BY MOUTH ONCE PER DAY FOR 5 DAYS. active Not Available Not Available No t Available Ciloxan 0.3 % eye drops 01/14 completed Medicati on ID: [id number] D uration Value: 10 Prescri bed By Name: ALISIA Gomez nd Name: Ciloxan Send Method: E-Prescr ibed Sub s Allowed: subs OK Speci al Instruct ion: Instill 4 drops twice a day into the affected ear. Med icationG enericNa me: Ciloxan Not Available Not Available Not Available acetamino phen 500 mg tablet TAKE 1 TABLET BY MOUTH EVERY 6 HOURS IF NEEDED FOR MILD PAIN FOR UP TO 10 DAYS. active Not Available Not Available No t Available butalbita l-acetami nophen-ca ffeine 50 mg-325 mg-40 mg tablet active Medicati on ID: [id number] B rand Name: butalbit al-aceta minophen -caff Se nd Method: E-Prescr ibed Sub s Allowed: subs OK Speci al Instruct ion: TAKE 1 TABLET BY MOUTH EVERY 6 HOURS IF NEEDED FOR HEADACHE S. NOT TO USE MORE THAN 3 TIMES A WEEK Med icationG enericNa me: butalbit al-aceta minophen -caff Not Available Not Available Not Available ofloxacin 0.3 % ear drops 4 drop into both ears twice a day 2017 active Medicati on ID: 085187 D uration Value: 7 Prescri bed By Name: Adrian Reilly nd Name: ofloxaci n Send Method: E-Prescr ibed Sub s Allowed: subs OK Medic ationGen ericName : ofloxaci n Not Available Not Available Not Available Vitamins B Complex tablet TAKE 1 TABLET BY MOUTH EVERY DAY IN THE MORNING (NOT COVERED) active Not Available Not Available No t Available pantopraz ole 40 mg tablet,de layed release TAKE 1 TABLET BY MOUTH TWICE DAILY active Not Available Not Available No t Available gabapenti n 300 mg capsule TAKE 1 CAPSULE BY MOUTH AT BEDTIME active Not Available Not Available No t Available omeprazol e 20 mg capsule,d elayed release 10/06 completed Medicati on ID: [id number] D uration Value: 30 Brand Name: omeprazo le Send Method: E-Prescr ibed Sub s Allowed: subs OK Speci al Instruct ion: TAKE ONE CAPSULE BY MOUTH EVERY DAY BEFORE A MEAL [facility]: omeprazo le Not Available Not Available Not Available mont[address] st 10 mg tablet TAKE 1 TABLET BY MOUTH EVERY DAY IN THE EVENING 2023 active Not Available Not Available Not Avai lable bisacodyl 5 mg tablet,de layed release TAKE 2 TABLETS BY MOUTH AT BEDTIME FOR 2 DAYS. active Not Available Not Available No t Available azelastin e 137 mcg (0.1 %) nasal spray ADMINIST ER 1 SPRAY INTO EACH NOSTRIL 2 TIMES DAILY. USE IN EACH NOSTRIL DIRECTED active Not Available Not Available No t Available ibuprofen 600 mg tablet TAKE 1 TABLET BY MOUTH EVERY 8 HOURS NEEDED FOR MODERATE PAIN active Not Available Not Available No t Available celecoxib 100 mg capsule TAKE 1 TABLET BY MOUTH TWICE A DAY WITH FOOD NEEDED FOR PAIN active Not Available Not Available No t Available Oxford 5 mg-325 mg tablet 1-2 tablet by mouth 2017 active Medicati on ID: [id number] D uration Value: 7 Prescri bed By Name: ALISIA Gomez nd Name: Missy Hernandez nd Method: E-Prescr ibed Sub s Allowed: subs OK Medic ationGen ericName : Oxford Not Available Not Available Not Available ondansetr on 4 mg disintegr ating tablet TAKE 1 TABLET BY MOUTH EVERY 8 HOURS NEEDED FOR NAUSEA AND VOMITING active Not Available Not Available No t Available fluticaso ne propionat e 50 mcg/actua tion nasal spray,xander pension TAKE 2 PUFFS INTO EACH NOSTRIL ONCE DAILY 2023 active Not Available Not Available Not Avai lable loratadin e 10 mg tablet TAKE 1 TABLET BY MOUTH EVERY DAY IN THE MORNING active Not Available Not Available No t Available Flovent HFA 110 mcg/actua tion aerosol inhaler Inhale 1 puff twice a day 2022 active Medicati on ID: [id number] D uration Value: 30 Brand Name: Flovent HFA Send Method: E-Prescr ibed Sub s Allowed: subs OK Medic ationGen ericName : Flovent HFA Not Available Not Available Not Available ProAir HFA 90 mcg/actua tion aerosol inhaler active Medicati on ID: [id number] B rand Name: ProAir HFA 90 mcg/Actu ation Aerosol Inhaler Send Method: E-Prescr ibed Sub s Allowed: subs OK Speci al Instruct ion: INHALE 2 PUFFS BY MOUTH EVERY 4-6 HOURS NEEDED M edicatio nGeneric Name: ProAir HFA 90 mcg/Actu ation Aerosol Inhaler Not Available Not Available Not Available Vitals Date Recorded Body height Body mass index (BMI) Body weight Provider Name and Address Organization Details Last Updated DateTime 02/14/2025 167.64 cm 36.3 kg/m2 122716.28 g Kimberlee Greene [place] - [facility] 02/14/2025 15:42:33 Social History None recorded. Functional Status None recorded. Mental Status None recorded. Family History Nothing Reported. Medical History Condition Response Hearing Loss Y Gynecological HistoryNo gynecological history recorded. Obstetrics History GPAL:G 0 P 0 0 0 0 Past Encounters Encounter ID Performer Location Encounter Start Date Encounter Closed Date Diagnosis/Indication Diagnosis SNOMED-CT Code Diagnosis ICD10 Code Diagnosis Note [id number] LAILA PATEL MD [facility] [address] [address] 02/14/2025 14:37:42 02/14/2025 16:06:57 Allergic rhinitis 37271993 J30.89 Bilateral disorder of Eustachian tubes 7595906227 549085 H69.83 Mixed cond uctive and sensorineural hearing loss, bilateral 144101617 H90.6 Audiologic al evaluation results:Ri ght ear:{{Norm al Normal through 2 kHz Mild M oderate Mo derately-s evere Jerrica re Profoun d Normal sloping to a mild-#}} {{hearing sloping to a mild slopi ng to a moderate s loping to moderately severe slo ping to severe slo ping to profound f lat high frequency low frequency mid frequency cookie bite leonard curve mode rate mixed hearing loss#}} {{with* se nsorineura l hearing loss with condu ctive hearing loss with mixed hearing loss with}} {{excellen t* good fa ir poor no measurable }} word recognitio n.Left ear:{{Norm al Normal through 2 kHz Mild M oderate Mo derately-s evere Jerrica re Profoun d Normal sloping to mild #}} {{hearing sloping to a mild slopi ng to a moderate s loping to moderately severe slo ping to severe slo ping to profound f lat high frequency low frequency mid frequency cookie bite leonard curve mixe d hearing loss#}} {{with* se nsorineura l hearing loss with condu ctive hearing loss with mixed hearing loss with}} {{excellen t* good fa ir poor no measurable }} word recognitio n. Tympanomet ry:Right Ear:{{Type A Type A with rounded peak Type A with double peak Type As Type As with rounded peak Type Ad Type C Type C, shallow & rounded peak Type B Type B with large volume Cou ld not maintain a hermetic seal Type C (-150)#}}L eft Ear:{{Type A Type A with rounded peak Type A with double peak Type As Type As with rounded peak Type Ad Type C Type C, shallow & rounded peak Type B Type B with large volume Cou ld not maintain a hermetic seal Type C (-195)#}} Health Concerns Section Related Observation LastModified by Organization Detai ls LastModified Time None Recorded Concern Status LastModified by Organization Details LastModified Time None Recorded Advance Directives Directive None Recorded Payers Encounter Date Sequence Insurance Name Policy Number Policy Apple Covered Member ID Apple Member ID Guarantor Name 02/14/2025 1 [place]: [facility] Alistair Leonard [id number] Alistair Leonard Notes Date Note Type Note Provider Name and Address Organization Details Recorded Time 02/14/2025 text/html 44yo female s/p left ear cartilage graft presents for evaluation of the ears. She reports ear fullness and whooshing sound in both ears since sinus infection 3 weeks ago. She uses daily intranasal fluticasone and oral loratadine with minimal improvement in allergy symptoms. She reports nasal congestion, postnasal drip, frequent sneezing, facial pruritus all year. She has a history of migraine, commonly triggered by rain and increased barometric pressure. Today patient denies ear pain, drainage, or associated dizziness. No tinnitus prior to sinus infection. Patient is very sensitive to intranasal sprays. LAILA PATEL MD [address] [place] [address], [phone], [facility] - [facility] 02/14/2025 17:34:52 OBGyn Episode No OBEpisode recorded.
--- OUTSIDE RECORDS SUMMARY | 2025-03-04 11:01 | XMS_ITS | Encounter Summary ---
Author Organization [employer] Address [address] [facility] 7 [place] [address] Care Team Providers Care Student Accounts Manager Name Role Phone Chuy Pabon MD Primary Care Provider [phone] Reason for Visit * Reason Onset Date Comments Referral 02/20/2025 Encounter Details Date Type Department Care Team ([facility] Contact Info) Description 02/20/2025 Telephone [facility] [address] [place] [address] Chuy Pabon MD [address] [place] [address] Referral Social History Tobacco Use Types Packs/Day Years [...] encounter Miscellaneous Notes * Telephone Encounter - Jessika Jernigan - 02/20/2025 12:39 PM EDT Tc from pt stating that she has a referral for [facility], but they can't see her and states that she should go to Occupational Therapy for carpal tunnel. Pt states [facility] could only see her for Physical Therapy for her shoulders due to carpal tunnel but not exactly because of the diagnosis. documented in this encounter Plan of Treatment Not on file documented as of this encounter Visit Diagnoses Not on filedocumented in this encounter Additional Health Concerns Assessment Noted Time PHQ-9 Depression Total Score: 2 12/30/19 23 2:19 PM EST documented as of this encounter Care Teams Student Accounts Manager Relationship Specialty Start Date End Date Chuy Pabon MD [address] [place] [address] PCP - General Internal Medicine 01/17/17 documented as of this encounter
--- OUTSIDE RECORDS SUMMARY | 2025-03-04 11:01 | XMS_ITS | Encounter Summary ---
Author Organization [employer] Address [address] [place] [address] 7 [place] [address] Care Team Providers Care Food Products Tester Name Role Phone Chuy Pabon MD Primary Care Provider [phone] Encounter Details Date Type Department Care Team ([facility] st Contact Info) Description 01/04/2023 Abstract [facility] CH[facility] MED & PEDS [address] [place] [address] Chuy Pabno MD [address] [place] [address] Social History Tobacco Use Types Packs/Day Years [...] documented as of this encounter Care Teams Food Products Tester Relationship Specialty Start Date End Date Chuy Pabon MD [address] [place] [address] PCP - General Internal Medicine 01/17/17 documented as of this encounter
--- OUTSIDE RECORDS SUMMARY | 2025-03-04 11:01 | XMS_ITS | Encounter Summary ---
Author Organization [employer] Address [address] [place] [address] 7 [place] [address] Care Team Providers Care Site Worker Name Role Phone Chuy Pabon MD Primary Care Provider [phone] Reason for Visit * Reason Onset Date Comments Med Refill 09/25/2024 Encounter Details Date Type Department Care Team ([facility] st Contact Info) Description 09/25/2024 Refill [facility] [address] [place] [address] Chuy Pabon MD [address] [place] [address] Seasonal allergic reaction Social History Tobacco Use [...] documented as of this encounter Care Teams Site Worker Relationship Specialty Start Date End Date Chuy Pabon MD [address] [place] [id number] PCP - General Internal Medicine 01/17/17 documented as of this encounter
--- OUTSIDE RECORDS SUMMARY | 2025-03-04 11:01 | XMS_ITS | Encounter Summary ---
Author Organization [employer] Address [address] [place] [address] 7 [place] [address] Care Team Providers Care Boxing And Pressing Supervisor Name Role Phone Chuy Pabon MD Primary Care Provider [phone] Reason for Visit * Reason Comments Med Refill Encounter Details Date Type Department Care Team ([facility] st Contact Info) Description 06/28/2023 Refill [facility] MED[facility]INE [address] [place] [address] Chuy Pabon MD [address] [place] [address] Social History Tobacco Use Types Packs/Day Years [...] documented as of this encounter Care Teams Boxing And Pressing Supervisor Relationship Specialty Start Date End Date Chuy Pabon MD [address] [place] [address] PCP - General Internal Medicine 01/17/17 documented as of this encounter
== END 2025-03-04 09:43 | disposition home or self-care (01) ==
LOC: HO.NEURO 09:42
PROVIDERS: PCP Internal Medicine; Visit Provider Nurse Practitioner Primary Care
DX: G56.13 Other lesions of median nerve, bilateral upper limbs (principal)
CPT/HCPCS: 95860; 95886; 95913

== ENCOUNTER 2025-05-26 14:12 | Outpatient (AMB) | payer MEDICAID, SELFPAY ==
--- NOTE | 2025-05-26 14:32 | MHC.OFFVIS ---
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 States she had numbness and tingling and started to do O.T with good improvement, however she is having radiating pains from her hand to her shoulder and neck. States this started after she dislocated her shoulder about 2.5 years ago. She is also wearing braces at night time and has receieved a CTS injection about 5 years with good relief. 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 States she had numbness and tingling and started to do O.T with good improvement, however she is having radiating pains from her hand to her shoulder and neck. States this started after she dislocated her shoulder about 2.5 years ago. She is also wearing braces at night time and has receieved a CTS injection about 5 years with good relief. Patient reports that her numbness and tingling is intermittent, daily, and worse at night. [facility] Medical History Asthma Celiac disease GERD (gastroesophageal reflux disease) Heart murmur Migraine Surgical History History of esophagogastroduodenoscopy (EGD) Hx of dilation and curettage Hx of tubal ligation History of ear surgery Family History Family/Other Breast cancer Maternal Grandmother Ovarian cancer Father Heart abnormality Social History (Updated 05/26/25 @ 14:39 by CRISTINA Gilman) Are you a primary healthcare economics manager to a significant other at home: No Do you presently have visiting nurse or other home services: No Alcohol intake: never Patient Tobacco Use Status: Never used Tobacco Current occupational status: employed 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 Review of Systems Const All systems reviewed & are unremarkable except as noted in HPI and below Physical Exam Vital Signs: BMI result Body Mass Index 36.3 Extrem Other: Neuro: Normal sensation of the tips of all digits of bilateral hands in the office today No thenar or intrinsic wasting. Good APB muscle firing and good finger cross. Vascular: Capillary refill brisk. ROM: Patient can make a fist and extend all their digits. Skin: No lacerations or abrasions noted. General: No ecchymosis. No erythema or evidence of infection. Assessment & Plan Assessment & Plan (1) Bilateral carpal tunnel syndrome: Code(s): G56.03 - Carpal tunnel syndrome, bilateral upper limbs Category: Medical Plan 1. Bilateral carpal tunnel syndrome Symptoms intermittent, daily, worse at night Patient is educated about this condition Patient is educated about the typical treatment course At this time, patient defers surgical intervention, stating she would like to have some time to discuss with family and friends prior to surgical intervention Patient also needs some time at work to be able to work out paperwork and FMLA Follow-up and patient is ready to discuss surgical intervention, sooner with any acute concerns Coding Level of Care Code New Pt Level 3 (17250) Diagnoses Bilateral carpal tunnel syndrome G56.03
--- OUTSIDE RECORDS SUMMARY | 2025-05-26 14:37 | XMS_ITS | Encounter Summary ---
Author Organization [employer] Address [address] [facility] 7 [place] [address] Care Team Providers Care Cab Station Attendant Name Role Phone Chuy Pabon MD Primary Care Provider [phone] Reason for Visit * Reason Onset Date Comments Nurse Triage 02/10/2025 Encounter Details Date Type Department Care Team ([facility] st Contact Info) Description 02/10/2025 Telephone [facility] MEDICINE [address] [place] [address] Chuy Pabon MD [address] [place] [address] Nurse Triage Social History Tobacco Use Types [...] can be taken. No available apts in [place] till 02/12/25. Pt requests melanie seen today and is offered to come to the [facility] and accepts this offer. Hours given open today till 8pm. Address [address] [facility] in [place]. Pt agrees with disposition . Home care [...] caller accepted this outcome. Contact pt at [phone] documented in this encounter Plan of Treatment Not on file documented as of this encounter Visit Diagnoses Not on filedocumented in this encounter Additional Health Concerns Assessment Noted Time PHQ-9 Depression Total Score: 2 12/30/19 23 2:19 PM EST documented as of this encounter Care Teams Cab Station Attendant Relationship Specialty Start Date End Date Chuy Pabon MD [address] [place] [address] PCP - General Internal Medicine 01/17/17 documented as of this encounter
--- OUTSIDE RECORDS SUMMARY | 2025-05-26 14:37 | XMS_ITS | Data Portability ---
Author Organization [place] - [facility], Allergy Address [address] [address] Care Team Providers Care Business Analyst Ecommerce Name Role Phone GABRIELLE BROOKS Primary Care [...] allergy testing. Recommend patient continue saline irrigations, [id number] allergy regimen, and trial of oxymetazoline 2 [...] oximetry (PROC) 2024 025 [email or web address] Not available 5 12:15:35 Surgeries None recorded. Imaging None recorded. Medication Orders oxymetazol ine 0.05 % nasal spray 2024 025 [id number], [address] [place] [address], [place], [address], 16:23:52 Patient TargetsNo targets recorded. Patient InstructionsNo instructions recorded. Reason for Referral None Reported. Results Created Date Observation Date Name Description Value Unit Range Abnormal Flag Note LastModifiedBy Organization Detail LastModifiedTime 02/15/2003/06/2017 audio gram No observ ation record ed. [email or web address] Not Available 01/19 16:34:37 02/15/20 audio gram No observ ation record ed. BARCODE Not Available 2024 16:37:12 Result Notes None recorded. Problems Name Problem SNOMED Code Status Onset Date Resolution Date Notes Provider Name and Address Organization Details Recorded Time Disorder of left Eustachi an tube 63689395630 56289 Active 2022 Other specifie d disorder s of Eustachi an tube, left ear; Note: Date Diagnose d: 09/01/20 3:49 PM (H69.82) Not Available [facility] 4 02:29:00 Sensorin eural hearing loss in right ear 66900707244 100 Active 2016 Sensorin eural hearing loss, unilater al, right ear, with restrict ed hearing on the contrala teral side; Note: Date Diagnose d: 7 12:20 PM (H90.A21 ) Not Available [facility] 4 02:29:19 Migraine 15732541 Active 2022 Other migraine , not intracta ble, without status migraino xander; Note: Date Diagnose d: 09/01/20 3:49 PM (G43.809 ) Not Available [facility] 4 02:29:02 Marginal perforat ion of tympanic membrane 88741012 Completed 201606/21/2024 Other marginal perforat ions of tympanic membrane , left ear; Note: Date Diagnose d: 7 12:20 PM (H72.2X2 ) Not Available [facility] 4 02:29:04 Uncompli cated moderate persiste nt asthma 297466177 Active 2022 Moderate persiste nt asthma, uncompli cated; Note: Date Diagnose d: 09/01/20 23 3:49 PM (J45.40) Not Available 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 4 02:29:07 Bilatera l disorder of Eustachi an tubes 27248173565 38764 Active 2016 Other specifie d disorder s of Eustachi an tube, bilatera l; Note: Changed from H74.12 to H69.83 (10/26/20 17 1:36 PM) , Date Diagnose d: 7 1:35 PM (H74.12) Not Available [facility] 4 02:29:01 Allergic rhinitis 42242909 Active 2022 Other allergic rhinitis ; Note: Date Diagnose d: 09/01/20 3:49 PM (J30.89) Not Available [facility] 4 02:28:51 Follow-u p visit Active 2017 Encounte r for follow-u p examinat ion after complete d treatmen t for conditio ns other than malignan t neoplasm ; Note: Date Diagnose d: 8 2:13 PM (Z09) Medica l surveill ance followin g complete d treatmen t; Note: Date Diagnose d: 09/07/20 11:32 AM (Z09) ; Start Date : 09/07/20 Not Available [facility] 4 02:29:05 Snoring 18209034 Active 2022 Snoring; Note: Date Diagnose d: 09/01/20 3:50 PM (R06.83) Not Available [facility] 4 02:28:54 Partial loss of ear ossicles 31910626 Active 2016 Partial loss of ear ossicles , left ear; Note: Date Diagnose d: 07/25/2017 5:23 PM (H74.322 ) Not Available [facility] 4 02:28:51 Mixed conducti ve and sensorin eural hearing loss, bilatera l 414800777 Active 2024 HECTOR JUDGE MA, CCC-A [address] [facility],[place] [address], [facility] [place], [address] , [facility] - [facility] 5 15:23:19 Non-panchito rgic rhinitis 06131383994 1 Active 2024 ABDIRAHMAN WALTON PA-C [address] [place] [address],[place] [address], [facility] [place], [address] , [facility] - [facility] [place] 5 16:13:09 Seasonal allergic rhinitis 265691522 Active 2024 ABDIRAHMAN WALTON PA-C [address] [place] [address],[place] [address], [place], [address] , [facility] - [facility] 5 16:13:09 Problem Notes None recorded. Procedures Surgical History Date Name Laterality Status Provider Name and Address Organization Details Recorded Time 02/14/2025 Comp Audio with Tymps - 45874 & 71201 completed HECTOR JUDGE MA, [facility] [address] [place] [address], [phone], [place] - [facility] 02/14/2025 15:23:30 Imaging Results None recorded. Procedure Notes None recorded. Medical Equipment None Reported. Allergies Allergen ID Allergen Name Allergen Category Reaction Reaction Severity Criticality Documentation Date Start Date Code Code System Note Provider Name and Address Organization Details Recorded Time 500225 wheat gluten extract food Not available Not available Not available 02/14/20252024 27753 81 RxNorm Kimberlee spence [place] - [facility] 15:42:38 472691 Milk (substanc e) food,medi cation Not available Not available Not available 02/14/20252024 07065 002 SNOMED Kimberlee spence [place] - [facility] 15:42:38 97177 Latex (substanc e) environme nt,medica tion other Not available Not available 04/02/2024 14336 8007 SNOMED React ion: Unkno wn; Not Available [facility] 4 00:53:36 53266 Bactrim medicatio n other Not available Not available 04/02/2024 75351 9 RxNorm React ion: Unkno wn; Not Available [facility] 4 00:25:24 85201 lactase medicatio n other Not available Not available 04/02/2024 72555 RxNorm React ion: Unkno wn; Not Available [facility] 4 00:53:46 21403 naproxen medicatio n other Not available Not available 04/02/2024 7258 RxNorm React ion: unkno wn, unspe cifie d;; Not Available [facility] 4 00:53:48 Medications Name Sig Start Date Stop Date Status Note LastModified by Organization Details LastModified Time Nasal [place] (oxymetaz oline) 0.05 % USE 2 SPRAYS [...] eye drops 01/14 completed Medicati on ID: 630832 D uration Value: 10 Prescri bed By [...] mg-40 mg tablet active Medicati on ID: 000245 B rand Name: butalbit al-aceta minophen -caff [...] a day 2017 active Medicati on ID: 440796 D uration Value: 7 Prescri bed By [...] elayed release 10/06 completed Medicati on ID: 662721 D uration Value: 30 Brand Name: earnestine bethea Send Method: E-Prescr ibed Sub s Allowed: subs OK Speci al Instruct ion: TAKE ONE CAPSULE BY MOUTH EVERY DAY BEFORE A MEAL [facility] me: omeprazo le Not Available Not Available [...] Not Available Not Available No t Available [place] 5 mg-325 mg tablet 1-2 tablet by mouth 2017 active Medicati on ID: 791625 D uration Value: 7 Prescri bed By Name: ALISIA Gomez nd Name: Missy Hernandez nd Method: E-Prescr ibed Sub s Allowed: subs OK Medic ationGen ericName : [place] Not Available Not Available Not Available ondansetr [...] a day 2022 active Medicati on ID: 645048 D uration Value: 30 Brand Name: Flovent HFA Send Method: E-Prescr ibed Sub s Allowed: subs OK Medic ationGen ericName : Flovent HFA Not Available Not Available Not Available ProAir HFA 90 mcg/actua tion aerosol inhaler active Medicati on ID: 382789 B rand Name: ProAir HFA 90 mcg/Actu [...] Updated DateTime 02/14/2025 167.64 cm 36.3 kg/m2 068225.28 g Kimberlee Greene [place] - [facility] 02/14/2025 15:42:33 Social History None recorded. Functional Status None recorded. Mental Status None recorded. Family History Nothing Reported. Medical History Condition Response Hearing Loss Y Gynecological HistoryNo gynecological history recorded. Obstetrics History GPAL:G 0 P 0 0 0 0 Past Encounters Encounter ID Performer Location Encounter Start Date Encounter Closed Date Diagnosis/Indication Diagnosis SNOMED-CT Code Diagnosis ICD10 Code Diagnosis Note [id number] ABDIRAHMAN WALTON PA-C [facility] [address] [address] 02/14/2025 14:37:42 02/14/2025 16:06:57 Allergic rhinitis 04508319 J30.89 Bilateral disorder of Eustachian tubes 9412253250 898767 H69.83 Mixed cond uctive and sensorineural hearing loss, bilateral 791552214 H90.6 Audiologic al evaluation results:Ri ght ear:Normal sloping to a mild- moderate mixed hearing loss with excellent word recognitio n.Left ear:Normal sloping to mild mixed hearing loss with excellent word recognitio n. Tympanomet ry:Right Ear:Type C (-150)Left Ear:Type C (-195) Health Concerns Section Related Observation LastModified by Organization Haroon smith LastModified Time None Recorded Concern Status LastModified by Organization Details LastModified Time None Recorded Advance Directives Directive None Recorded Payers Insurance Date Sequence Insurance Name Policy Number Policy Apple Covered Member ID Apple Member ID Guarantor Name 02/14/2025 1 [place] [facility] Alistair Leonard [id number] Alistair Leonard Notes Date Note Type Note [...] sensitive to intranasal sprays. LAILA PATEL MD [address] [place] [address], [phone], [facility] - [facility] 02/14/2025 17:34:52 OBGyn Episode No OBEpisode recorded.
[2025-05-26 14:39] VITALS: BMI 36.3
== END 2025-05-26 14:54 | disposition home or self-care (01) ==
LOC: HO.HOS 14:13
PROVIDERS: PCP Internal Medicine
DX: G56.03 Carpal tunnel syndrome, bilateral upper limbs (principal)
CPT/HCPCS: 99203

== ENCOUNTER → 2025-05-26 14:12 | Outpatient (BNVA) | payer MEDICAID, SELFPAY | PROVIDERS: PCP Internal Medicine | DX: G56.03 Carpal tunnel syndrome, bilateral upper limbs (principal) | CPT/HCPCS: 99212 ==

== ENCOUNTER 2025-06-19 11:10 | Day surgery (SDC) | payer MEDICAID, SELFPAY ==
--- OUTSIDE RECORDS SUMMARY | 2025-06-13 12:03 | XMS_ITS | Data Portability ---
Author Organization [place] - [facility], Allergy Address [address] [address] Care Team Providers Care Sample Dye Mixer Name Role Phone GABRIELLE BROOKS Primary Care [...] allergy testing. Recommend patient continue saline irrigations, [id number] allergy regimen, and trial of oxymetazoline 2 [...] ine 0.05 % nasal spray 2024 025 [facility] #[id number], [address] [place] [address], [place], [address], 16:23:52 Patient TargetsNo targets recorded. Patient InstructionsNo instructions recorded. Reason for Referral None Reported. Results Created Date Observation Date Name Description Value Unit Range Abnormal Flag Note LastModifiedBy Organization Detail LastModifiedTime 02/15/2003/06/2017 audio gram No observ ation record ed. [email or web address] Not Available 01/19 16:34:37 02/15/20 audio gram No observ ation record ed. BARCODE Not Available 2024 16:37:12 Result Notes None recorded. Problems Name Problem SNOMED Code Status Onset Date Resolution Date Notes Provider Name and Address Organization Details Recorded Time Sensorin eural hearing loss in right ear 65230672413 100 Active 2016 Sensorin eural hearing loss, unilater al, right ear, with restrict ed hearing on the contrala teral side; Note: Date Diagnose d: 7 12:20 PM (H90.A21 ) Not Available [facility] 4 02:29:19 Marginal perforat ion of tympanic membrane 19216327 Completed 201606/21/2024 Other marginal perforat ions of tympanic membrane , left ear; Note: Date Diagnose d: 7 12:20 PM (H72.2X2 ) Not Available [facility] 4 02:29:04 Mixed conducti ve and sensorin eural hearing loss of left ear 39450215862 107 Active 2016 Mixed conducti ve and sensorin eural hearing loss, unilater al, left ear with restrict ed hearing on the contrala teral side; Note: Date Diagnose d: 7 12:20 PM (H90.A32 ) Not Available [facility] 4 02:29:07 Disconti nuity of ear ossicles 83418675 Active 2016 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 ; Note: Date Diagnose d: 7 3:29 PM (H74.22) Not Available [facility] 4 02:29:13 Dislocat ion of ossicle of left ear 80382631989 24307 Active 2016 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 ; Note: Date Diagnose d: 7 3:29 PM (H74.22) Not Available [facility] 4 02:29:13 Partial loss of ear ossicles 41906235 Active 2016 Partial loss of ear ossicles , left ear; Note: Date Diagnose d: 07/25/2017 5:23 PM (H74.322 ) Not Available [facility] 4 02:28:51 Bilatera l disorder of Eustachi an tubes 91196601705 59630 Active 2016 Other specifie d disorder s of Eustachi an tube, bilatera l; Note: Changed from H74.12 to H69.83 (10/26/20 17 1:36 PM) , Date Diagnose d: 7 1:35 PM (H74.12) Not Available [facility] 4 02:29:01 Follow-u p visit Active 2017 Encounte r for follow-u p examinat ion after complete d treatmen t for conditio ns other than malignan t neoplasm ; Note: Date Diagnose d: 8 2:13 PM (Z09) Medica l surveill ance followin g complete d treatmen t; Note: Date Diagnose d: 09/07/20 17 11:32 AM (Z09) ; Start Date : 09/07/20 17 Not Available [facility] 4 02:29:05 Disorder of left Eustachi an tube 30188575982 40431 Active 2022 Other specifie d disorder s of Eustachi an tube, left ear; Note: Date Diagnose d: 09/01/20 23 3:49 PM (H69.82) Not Available [facility] 4 02:29:00 Migraine 64712015 Active 2022 Other migraine , not intracta ble, without status migraino xander; Note: Date Diagnose d: 09/01/20 3:49 PM (G43.809 ) Not Available [facility] 4 02:29:02 Uncompli cated moderate persiste nt asthma 942217572 Active 2022 Moderate persiste nt asthma, uncompli cated; Note: Date Diagnose d: 09/01/20 3:49 PM (J45.40) Not Available [facility] 4 02:29:14 Obesity 365853332 Active 2022 Other obesity; Note: Date Diagnose d: 09/01/20 3:49 PM (E66.8) Not Available [facility] 4 02:29:04 Allergic rhinitis 02954336 Active 2022 Other allergic rhinitis ; Note: Date Diagnose d: 09/01/20 3:49 PM (J30.89) Not Available [facility] 4 02:28:51 Snoring 65198135 Active 2022 Snoring; Note: Date Diagnose d: 09/01/20 3:50 PM (R06.83) Not Available [facility] 4 02:28:54 Mixed conducti ve and sensorin eural hearing loss, bilatera l 238772345 Active 2024 HECTOR JUDGE MA, CCC-A 100 [facility],[place] [address], [place], [phone] , [facility] - [facility] [place] 5 15:23:19 Non-panchito rgic rhinitis 83917718846 1 Active 2024 ABDIRAHMAN WALTON PA-C [address] [place] [address],[place] [address], [place], [phone] , [facility] - [facility] [place] 5 16:13:09 Seasonal allergic rhinitis 323833569 Active 2024 ABDIRAHMAN WALTON PA-C [address] [facility],[place] [address], [place], [phone] , [facility] - [facility] [place] 5 16:13:09 Problem Notes None recorded. Procedures Surgical History Date Name Laterality Status Provider Name and Address Organization Details Recorded Time 02/14/2025 Comp Audio with Tymps - 26061 & 55099 completed HECTOR JUDGE MA, [facility] [address] [place] [address], [phone], [place] - [facility] 02/14/2025 15:23:30 Imaging Results None recorded. Procedure Notes None recorded. Medical Equipment None Reported. Allergies Allergen ID Allergen Name Allergen Category Reaction Reaction Severity Criticality Documentation Date Start Date Code Code System Note Provider Name and Address Organization Details Recorded Time 636188 wheat gluten extract food Not available Not available Not available 02/14/20252024 85291 81 RxNorm Kimberlee spence [place] - [facility] 15:42:38 285868 Milk (substanc e) food,medi cation Not available Not available Not available 02/14/20252024 81674 002 SNOMED Kimberlee spence [place] - [facility] 15:42:38 77760 Latex (substanc e) environme nt,medica tion other Not available Not available 04/02/2024 99863 8007 SNOMED React ion: Unkno wn; Not Available [facility] 4 00:53:36 37700 Bactrim medicatio n other Not available Not available 04/02/2024 60879 9 RxNorm React ion: Unkno wn; Not Available [facility] 4 00:25:24 68936 lactase medicatio n other Not available Not available 04/02/2024 71256 RxNorm React ion: Unkno wn; Not Available [facility] 4 00:53:46 81495 naproxen medicatio n other Not available Not available 04/02/2024 7258 RxNorm React ion: unkno wn, unspe cifie d;; Not Available [facility] 4 00:53:48 Medications Name Sig Start Date Stop Date Status Note LastModified by Organization Details LastModified Time Nasal [place] (oxymetaz oline) 0.05 % USE 2 SPRAYS [...] eye drops 01/14 completed Medicati on ID: 405494 D uration Value: 10 Prescri bed By [...] mg-40 mg tablet active Medicati on ID: 727305 B rand Name: butalbit al-aceta minophen -caff [...] a day 2017 active Medicati on ID: 289376 D uration Value: 7 Prescri bed By [...] elayed release 10/06 completed Medicati on ID: 181519 D uration Value: 30 Brand Name: earnestine bethea Send Method: E-Prescr ibed Sub s Allowed: subs OK Speci al Instruct ion: TAKE ONE CAPSULE BY MOUTH EVERY DAY BEFORE A MEAL [facility] me: omeprazo le Not Available Not Available [...] Not Available Not Available No t Available Yolo 5 mg-325 mg tablet 1-2 tablet by mouth 2017 active Medicati on ID: 660983 D uration Value: 7 Prescri bed By Name: ALISIA Gomez nd Name: Missy Hernandez nd Method: E-Prescr ibed Sub s Allowed: subs OK Medic ationGen ericName : Yolo Not Available Not Available Not Available ondansetr [...] a day 2022 active Medicati on ID: [id number] D uration Value: 30 Brand Name: Flovent HFA Send Method: E-Prescr ibed Sub s Allowed: subs OK Medic ationGen ericName : Flovent HFA Not Available Not Available Not Available ProAir HFA 90 mcg/actua tion aerosol inhaler active Medicati on ID: [id number] B rand Name: ProAir HFA 90 mcg/Actu [...] Updated DateTime 02/14/2025 167.64 cm 36.3 kg/m2 200938.28 g Kimberlee Greene [place] - [facility] 02/14/2025 15:42:33 Social History None recorded. Functional Status None recorded. Mental Status None recorded. Family History Nothing Reported. Medical History Condition Response Hearing Loss Y Gynecological HistoryNo gynecological history recorded. Obstetrics History GPAL:G 0 P 0 0 0 0 Past Encounters Encounter ID Performer Location Encounter Start Date Encounter Closed Date Diagnosis/Indication Diagnosis SNOMED-CT Code Diagnosis ICD10 Code Diagnosis Note [id number] ABDIRAHMAN WALTON PA-C [facility] [address] [address] 02/14/2025 14:37:42 02/14/2025 16:06:57 Allergic rhinitis 80959959 J30.89 Bilateral disorder of Eustachian tubes 8940053945 056011 H69.83 Mixed cond uctive and sensorineural hearing loss, bilateral 085112895 H90.6 Audiologic al evaluation results:Ri ght ear:Normal [...] Member ID Guarantor Name 02/14/2025 1 [place] [facility] Alistair Leonard [id number] Alistair Leonard Notes Date Note Type Note Provider Name and Address Organization Details Recorded Time 02/14/2025 text/html ROS as noted in the HPI 44yo female s/p left ear cartilage graft [...] sensitive to intranasal sprays. LAILA PATEL MD [address] [place] [address], [phone], [facility] - [facility] 02/14/2025 17:34:52 OBGyn Episode No OBEpisode recorded.
[2025-06-19 08:09] VITALS: BMI 35.5
[2025-06-19 11:50] VITALS: BP 123/70; PULSE 73; RESP 20; TEMP 36.3; O2SAT 98
--- NOTE | 2025-06-19 12:37 | MHC.SHP ---
Pre-Procedural Eval Section A - 24 Hr Update-Section A only Date of Service: 06/19/25 The patient is an INPATIENT: No Changes since office visit: No Cold of Flu in the past 2 weeks, No New Medical Problems, No Changes in Medication and No Patient answered all questions The patient has been examined within 24 hours of the surgical procedure. The History & Physical has been completed within 30 days and I have reviewed it.: Yes Section B - Complete if H&P > 30 days Chief Complaint: Carpal tunnel syndrome, left upper limb Allergies: Allergies Allergy/AdvReac Type Severity Reaction Status Date / Time sulfamethoxazole (From Allergy Severe rash Verified 05/26/25 14:38 Bactrim) trimethoprim (From Bactrim) Allergy Severe rash Verified 05/26/25 14:38 acetaminophen (From Percocet) AdvReac Severe Fainting Verified 05/26/25 14:38 naproxen AdvReac Severe abdominal Verified 05/26/25 14:38 pain omeprazole AdvReac Severe Diarrhea Verified 05/26/25 14:38 oxycodone (From Percocet) AdvReac Severe Fainting Verified 05/26/25 14:38 septra Allergy Severe rash Uncoded 05/26/25 14:38 Plan Diagnosis/Plan: Unchanged I have reviewed the history and physical and performed a pertinent physical examination on my patient. No changes have occurred unless specified. Time Spent With Patient Time: Total time managing care of this patient today ____ minutes.
--- NOTE | 2025-06-19 12:37 | W.PM.OPN ---
Operative Note Operative Note Date of Service: 06/19/25 Narrative: Preop diagnosis: 1. Left Carpal tunnel syndrome Postop diagnosis: same Procedure: 1. Left Carpal tunnel release Surgeon: Vickie Cruz MD Boring Machine Operator Production: Jason ROJAS Anesthesia: local block using 1% lidocaine with epinephrine Findings: Thickened transverse carpal ligament. EBL: Less than 5 mL Specimens: None Complications: None Disposition: Brought to recovery room in stable condition Plan: Follow-up for 10-14 days for wound check and suture removal Indications: The patient is 44 years old, with left carpal tunnel syndrome that has been unresponsive to nonoperative management. The risks and benefits of operative treatment including but not limited to risk of damage to blood vessels, nerves, tendons, infection, persistent pain, persistent symptoms, or possible need for additional surgery were discussed with the patient and the patient wishes to proceed with surgery. Procedure: Once consent was obtained a local block was performed using a combination of 1% lidocaine with epinephrine. The patient was then brought back to the operating suite and placed on the operative table in supine position. The left upper extremity was prepped and draped in a standard surgical fashion. Once assured that we had a good block, a 2.0 cm longitudinal incision was made centered over the carpal tunnel. The incision was made through the skin to the subcutaneous tissues using a #15 blade. Dissection was made down to the level of the transverse carpal ligament with care being taken to protect the palmar cutaneous nerve. Once the transverse carpal ligament was clearly visualized, a longitudinal incision was made in the transverse carpal ligament 1st using a #15 blade, then using tenotomy scissors under direct visualization. Care was taken to look for and protect the motor branch of the median nerve when seen in this area. Once satisfied with our carpal tunnel release the wound was copiously irrigated with normal saline and hemostasis was obtained with a brief period of local pressure. The skin edges were reapproximated with some 5.0 nylon suture material and a sterile dressing was applied. The patient appears to have tolerated the procedure well and with no complications. All digits were well vascularized at the conclusion of the case.
[2025-06-19 14:25] VITALS: BP 112/70; PULSE 80; RESP 16; O2SAT 100
== END 2025-06-19 14:27 | disposition home or self-care (01) ==
PROVIDERS: PCP Internal Medicine; Visit Provider Orthopaedic Surgery
PROC: (CPT 64721; principal; 2025-06-19 13:20)
DX: G56.02 Carpal tunnel syndrome, left upper limb (principal); R20.0 Anesthesia of skin; R20.2 Paresthesia of skin; J45.909 Unspecified asthma, uncomplicated; K21.9 Gastro-esophageal reflux disease without esophagitis; G43.909 Migraine, unspecified, not intractable, without status migrainosus; R01.1 Cardiac murmur, unspecified; K90.0 Celiac disease; Z88.2 Allergy status to sulfonamides; Z88.5 Allergy status to narcotic agent; Z88.6 Allergy status to analgesic agent; Z88.8 Allergy status to other drugs, medicaments and biological substances
CPT/HCPCS: 64721; J0165; J2003

== ENCOUNTER → 2025-06-19 11:10 | Outpatient (BNV) | payer MEDICAID, SELFPAY | PROVIDERS: PCP Internal Medicine; Visit Provider Orthopaedic Surgery | DX: G56.02 Carpal tunnel syndrome, left upper limb (principal) | CPT/HCPCS: 64721 ==

== ENCOUNTER 2025-07-02 09:12 | Outpatient (AMB) | payer MEDICAID, SELFPAY ==
--- NOTE | 2025-07-02 09:28 | MHC.OFFVIS ---
Vital Signs 07/02/25 09:37 Height 5 ft 6 in Weight 220 lb BMI 35.5 Intake Visit Reasons: PO-Lt CTR 06/19/25 Intake Note: Alistair is a 44 year old hand dominant female who presents today for their first post-operative visit status post left carpel tunnel release DOS:06/19/25, by Dr. Cruz. Patient is doing well. Denies numbness, tingling, finger locking. She is taking Celebex for other problems. Sutures removed and steri strips applied. Allergies sulfamethoxazole (From Bactrim) Allergy (Severe, Verified 07/02/25 09:38) rash trimethoprim (From Bactrim) Allergy (Severe, Verified 07/02/25 09:38) rash acetaminophen (From Percocet) Adverse Reaction (Severe, Verified 07/02/25 09:38) Fainting naproxen Adverse Reaction (Severe, Verified 07/02/25 09:38) abdominal pain omeprazole Adverse Reaction (Severe, Verified 07/02/25 09:38) Diarrhea oxycodone (From Percocet) Adverse Reaction (Severe, Verified 07/02/25 09:38) Fainting septra Allergy (Severe, Uncoded 07/02/25 09:38) rash HPI HPI PO-Lt CTR 06/19/25: Details: Alistair is a 44 year old hand dominant female who presents today for their first post-operative visit status post left carpel tunnel release DOS:06/19/25, by Dr. Cruz. Patient is doing well. Denies numbness, tingling, finger locking. She is taking Celebex for other problems. Sutures removed and steri strips applied. [facility] Medical History (Updated 06/19/25 @ 11:49 by Saumya Aquino RN) Gastroenteritis Asthma Celiac disease GERD (gastroesophageal reflux disease) Heart murmur Migraine Surgical History History of esophagogastroduodenoscopy (EGD) Hx of dilation and curettage Hx of tubal ligation History of ear surgery Family History Family/Other Breast cancer Maternal Grandmother Ovarian cancer Father Heart abnormality Social History (Updated 05/26/25 @ 14:39 by CRISTINA Gilman) Are you a primary home health care worker to a significant other at home: No Do you presently have visiting nurse or other home services: No Alcohol intake: never Patient Tobacco Use Status: Never used Tobacco Current occupational status: employed 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 Review of Systems Const All systems reviewed & are unremarkable except as noted in HPI and below Physical Exam Vital Signs: BMI result Body Mass Index 35.5 Extrem Other: Neuro: Normal sensation of the tips of all digits of bilateral hands in the office today No thenar or intrinsic wasting. Good APB muscle firing and good finger cross. Vascular: Capillary refill brisk. ROM: Patient can make a fist and extend all their digits. Skin: Well approximated and well healing incision site noted on the volar left wrist No lacerations or abrasions noted. General: No ecchymosis. No erythema or evidence of infection. Assessment & Plan Assessment & Plan (1) Bilateral carpal tunnel syndrome: Code(s): G56.03 - Carpal tunnel syndrome, bilateral upper limbs Category: Medical Plan 1. Right carpal tunnel syndrome Symptoms intermittent, daily, worse at night I educated the patient about the condition. I discussed both operative and nonoperative treatment options. The patient would like to proceed with surgery. The risks and benefits of operative treatment were discussed with the patient and the patient wishes to proceed with surgery. These risks include, but are not limited to, risk of damage to blood vessels, nerves, tendons, infection, recurrence, incomplete relief of preoperative symptoms, persistent pain, possible need for further surgery, and the risks associated with regional blocks and/or anesthesia. Plan is to take the patient to the operating room at some point in the next few weeks for the following procedures: 1. Right carpal tunnel release under local All of the preoperative paperwork including the consent was discussed today. All of the patient's questions were answered in the clinic today. The patient understands that they will be in contact with our planner scheduler to discuss scheduling their procedure. Patient denies diabetes, blood thinners, asthma, heart issues, lung issues, kidney issues, or current smoking. 2. Status post left carpal tunnel release DOS 06/19/2025 Patient appears to be recovering well postoperatively Patient is educated about the typical recovery course Sutures removed, Steri-Strips applied without issue Patient will not require any further acute follow-up with us for her left carpal tunnel release, as she appears to be recovering very well Patient is amenable to this plan Coding Level of Care Code Est Pt Level 4 (71540) Diagnoses Bilateral carpal tunnel syndrome G56.03
--- OUTSIDE RECORDS SUMMARY | 2025-07-02 09:35 | XMS_ITS | Encounter Summary ---
Author Organization [employer] Address [address] [facility] 7 [place] [address] Care Team Providers Care Third Loader Name Role Phone Chuy Pabon MD Primary Care Provider [phone] Reason for Visit * Reason Onset Date Comments Nurse Triage 02/10/2025 Encounter Details Date Type Department Care Team ([facility] st Contact Info) Description 02/10/2025 Telephone [facility] [address] [place] [address] Chuy Pabon MD [address] [place] [address] Nurse Triage Social History Tobacco Use Types [...] can be taken. No available apts in [facility] till 02/12/25. Pt requests melanie seen today and is offered to come to the [facility] and accepts this offer. Hours given open today till 8pm. Address [address] [facility] in [place]. Pt agrees with disposition . Home care [...] caller accepted this outcome. Contact pt at [phone] documented in this encounter Plan of Treatment Not on file documented as of this encounter Visit Diagnoses Not on filedocumented in this encounter Additional Health Concerns Assessment Noted Time PHQ-9 Depression Total Score: 2 12/30/19 23 2:19 PM EST documented as of this encounter Care Teams Third Loader Relationship Specialty Start Date End Date Chuy Pabon MD [address] [place] [id number] PCP - General Internal Medicine 01/17/17 documented as of this encounter
[2025-07-02 09:37] VITALS: BMI 35.5
== END 2025-07-02 10:11 | disposition home or self-care (01) ==
LOC: HO.HOS 09:12
PROVIDERS: PCP Internal Medicine
DX: G56.03 Carpal tunnel syndrome, bilateral upper limbs (principal)
CPT/HCPCS: 99214

== ENCOUNTER → 2025-07-02 09:12 | Outpatient (BNVA) | payer MEDICAID, SELFPAY | PROVIDERS: PCP Internal Medicine | DX: G56.03 Carpal tunnel syndrome, bilateral upper limbs (principal); Z98.890 Other specified postprocedural states | CPT/HCPCS: 99212 ==

== ENCOUNTER 2025-07-08 10:19 | Outpatient (AMB) | payer MEDICAID, SELFPAY ==
--- NOTE | 2025-07-08 10:31 | A.OFFVIS_ITS ---
Vital Signs 07/08/25 10:34 Height 5 ft 6 in Weight 220 lb BMI 35.5 Intake Visit Reasons: PO-wound check Left CTR 06/19/25 AR Intake Note: Alistair is a 44 year old hand dominant female who presents today post- operatively status post left carpel tunnel release DOS:06/19/25, by Dr. Cruz. Patient was last seen on 07/02/25, sutures removed at that time. Patient reports today once steri strips fell off, she noticed some crustiness , swelling and warmness to touch. Patient reports today she is concerned for a yellowish area on her incision. Allergies sulfamethoxazole (From Bactrim) Allergy (Severe, Verified 07/08/25 10:34) rash trimethoprim (From Bactrim) Allergy (Severe, Verified 07/08/25 10:34) rash acetaminophen (From Percocet) Adverse Reaction (Severe, Verified 07/08/25 10:34) Fainting naproxen Adverse Reaction (Severe, Verified 07/08/25 10:34) abdominal pain omeprazole Adverse Reaction (Severe, Verified 07/08/25 10:34) Diarrhea oxycodone (From Percocet) Adverse Reaction (Severe, Verified 07/08/25 10:34) Fainting septra Allergy (Severe, Uncoded 07/08/25 10:34) rash HPI HPI PO-wound check Left CTR 06/19/25 AR: Details: Alistair is a 44 year old hand dominant female who presents today post- operatively status post left carpel tunnel release DOS:06/19/25, by Dr. Cruz. Patient was last seen on 07/02/25, sutures removed at that time. Patient reports today once steri strips fell off, she noticed some crustiness , swelling and warmness to touch. Patient reports today she is concerned for a yellowish area on her incision. Patient reports no ongoing pain. [facility] Medical History (Updated 06/19/25 @ 11:49 by Saumya Aquino RN) Gastroenteritis Asthma Celiac disease GERD (gastroesophageal reflux disease) Heart murmur Migraine Surgical History History of esophagogastroduodenoscopy (EGD) Hx of dilation and curettage Hx of tubal ligation History of ear surgery Family History Family/Other Breast cancer Maternal Grandmother Ovarian cancer Father Heart abnormality Social History (Updated 05/26/25 @ 14:39 by CRISTINA Gilman) Are you a primary home health care provider to a significant other at home: No Do you presently have visiting nurse or other home services: No Alcohol intake: never Patient Tobacco Use Status: Never used Tobacco Current occupational status: employed 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 Review of Systems Const All systems reviewed & are unremarkable except as noted in HPI and below Physical Exam Vital Signs: BMI result Body Mass Index 35.5 Extrem Other: Neuro: Normal sensation of the tips of all digits of bilateral hands in the office today No thenar or intrinsic wasting. Good APB muscle firing and good finger cross. Vascular: Capillary refill brisk. ROM: Patient can make a fist and extend all their digits. Skin: Well approximated and well healing incision site noted on the volar left wrist Some dry skin noted about the most proximal aspect of the incision, no evidence of infection No lacerations or abrasions noted. General: No ecchymosis. No erythema or evidence of infection. Assessment & Plan Assessment & Plan (1) Bilateral carpal tunnel syndrome: Code(s): G56.03 - Carpal tunnel syndrome, bilateral upper limbs Category: Medical Plan 1. Status post left carpal tunnel release DOS 06/19/2025 Patient appears to be recovering well postoperatively Patient is educated about the typical recovery course Sutures removed, Steri-Strips applied without issue No signs of infection or other worrisome symptoms of surgical complications, erin ontiveros is educated about this Patient will not require any further acute follow-up with us for her left carpal tunnel release, as she appears to be recovering very well Patient is amenable to this plan Coding Level of Care Code Global (45533) Diagnoses Bilateral carpal tunnel syndrome G56.03
[2025-07-08 10:34] VITALS: BMI 35.5
--- OUTSIDE RECORDS SUMMARY | 2025-07-08 11:37 | XMS_ITS | Encounter Summary ---
Author Organization [employer] Address [address] [facility] 7 [place] [address] Care Team Providers Care Regional Otr Company Driver Name Role Phone Chuy Pabon MD Primary Care Provider [phone] Reason for Visit * Reason Onset Date Comments Nurse Triage 02/10/2025 Encounter Details Date Type Department Care Team ([facility] st Contact Info) Description 02/10/2025 Telephone [facility] MEDICINE [address] [place] [address] Chuy Pabon MD [address] [place] [address] Nurse Triage Social History Tobacco Use Types [...] can be taken. No available apts in [facility] till 02/12/25. Pt requests melanie seen today and is offered to come to the [facility] and accepts this offer. Hours given open today till 8pm. Address [address] [facility] in [place]. Pt agrees with disposition . Home care [...] caller accepted this outcome. Contact pt at [phone] documented in this encounter Plan of Treatment Not on file documented as of this encounter Visit Diagnoses Not on filedocumented in this encounter Additional Health Concerns Assessment Noted Time PHQ-9 Depression Total Score: 2 12/30/19 23 2:19 PM EST documented as of this encounter Care Teams Regional Otr Company Driver Relationship Specialty Start Date End Date Chuy Pabon MD [address] [place] [address] PCP - General Internal Medicine 01/17/17 documented as of this encounter
== END 2025-07-08 10:43 | disposition home or self-care (01) ==
LOC: HO.HOS 10:20
PROVIDERS: PCP Internal Medicine
DX: G56.03 Carpal tunnel syndrome, bilateral upper limbs (principal)
CPT/HCPCS: 99024

== ENCOUNTER → 2025-07-08 10:19 | Outpatient (BNVA) | payer MEDICAID, SELFPAY | PROVIDERS: PCP Internal Medicine | DX: G56.03 Carpal tunnel syndrome, bilateral upper limbs (principal) | CPT/HCPCS: 99212 ==

== ENCOUNTER 2025-08-05 14:02 | Outpatient (AMB) | payer MEDICAID, SELFPAY ==
--- NOTE | 2025-08-05 14:16 | MHC.OFFVIS ---
Vital Signs 08/05/25 14:18 Height 5 ft 6 in Weight 220 lb BMI 35.5 Intake Visit Reasons: P/O LT CTR 06/19/25 Intake Note: Alistair is a 44 year old hand dominant female who presents today post-operatively status post Left Carpel Tunnel Release DOS:06/19/25, by Dr. Cruz. At her first and last post-operative visit she was found to be recovering well. However, patient presents today concerned about her incision's healing. She has tenderness and discomfort around the incision. She also complains of tenderness when carrying items. Patient is scheduled to have RIGHT Carpal Tunnel Release on 08/11/25. Allergies sulfamethoxazole (From Bactrim) Allergy (Severe, Verified 08/05/25 14:21) rash trimethoprim (From Bactrim) Allergy (Severe, Verified 08/05/25 14:21) rash acetaminophen (From Percocet) Adverse Reaction (Severe, Verified 08/05/25 14:21) Fainting naproxen Adverse Reaction (Severe, Verified 08/05/25 14:21) abdominal pain omeprazole Adverse Reaction (Severe, Verified 08/05/25 14:21) Diarrhea oxycodone (From Percocet) Adverse Reaction (Severe, Verified 08/05/25 14:21) Fainting septra Allergy (Severe, Uncoded 08/05/25 14:21) rash HPI HPI P/O LT CTR 06/19/25: Details: Alistair is a 44 year old hand dominant female who presents today post-operatively status post Left Carpel Tunnel Release DOS:06/19/25, by Dr. Cruz. At her first and last post-operative visit she was found to be recovering well. However, patient presents today concerned about her incision's healing. She has tenderness and discomfort around the incision. She also complains of tenderness when carrying items. Patient is scheduled to have RIGHT Carpal Tunnel Release on 08/11/25. Patient states that she would like to postpone her right carpal tunnel release indefinitely, and would also like a short extension on her FMLA status post left carpal tunnel release in order to ensure good recovery prior to returning to work. [facility] Medical History (Updated 06/19/25 @ 11:49 by Saumya Aquino RN) Gastroenteritis Asthma Celiac disease GERD (gastroesophageal reflux disease) Heart murmur Migraine Surgical History History of esophagogastroduodenoscopy (EGD) Hx of dilation and curettage Hx of tubal ligation History of ear surgery Family History Family/Other Breast cancer Maternal Grandmother Ovarian cancer Father Heart abnormality Social History (Updated 05/26/25 @ 14:39 by CRISTINA Gilman) Are you a primary career development specialist to a significant other at home: No Do you presently have visiting nurse or other home services: No Alcohol intake: never Patient Tobacco Use Status: Never used Tobacco Current occupational status: employed 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 Review of Systems Const All systems reviewed & are unremarkable except as noted in HPI and below Physical Exam Vital Signs: BMI result Body Mass Index 35.5 Extrem Other: Neuro: Normal sensation of the tips of all digits of bilateral hands in the office today No thenar or intrinsic wasting. Good APB muscle firing and good finger cross. Vascular: Capillary refill brisk. ROM: Patient can make a fist and extend all their digits. Skin: Well approximated and well healing incision site noted on the volar left wrist Significant sensitivity to extremely light palpation of the incision site Some dry skin noted about the most proximal aspect of the incision, no evidence of infection No lacerations or abrasions noted. General: No ecchymosis. No erythema or evidence of infection. Assessment & Plan Assessment & Plan (1) Bilateral carpal tunnel syndrome: Code(s): G56.03 - Carpal tunnel syndrome, bilateral upper limbs Category: Medical Plan 1. Status post left carpal tunnel release Significant hypersensitivity developed postoperatively Patient is educated about this condition Patient is educated about the typical treatment course At this time, OT referral was placed for desensitization of the left wrist Patient understands this is amenable to this plan We will postpone right-sided carpal tunnel release until the patient feels her left wrist is in a good spot and has recovered well enough where she has ideal function Patient will call us when she is ready to discuss this, sooner with any acute concerns Orders: Orders OT Evaluation and Treatment 08/05/25 G56.03 - Carpal tunnel syndrome, bilateral upper limbs Coding Level of Care Code Global (32904) Diagnoses Bilateral carpal tunnel syndrome G56.03
[2025-08-05 14:18] VITALS: BMI 35.5
--- OUTSIDE RECORDS SUMMARY | 2025-08-05 17:48 | XMS_ITS | Clinical Summary ---
Author Organization [employer] Address [address] [place] [address] 7t [place] [address] Care Team Providers Care Lan/Wan Engineer Name Role Phone Chuy Pabon MD Primary Care Provider [phone] Allergies Active Allergy Reactions Criticality Noted Date Comments Acetaminophen Syncope High 08/08/2024 Gluten Meal Diarrhea 02/17/2025 Lactose Diarrhea 02/17/2025 Naproxen 07/12/2017 Omeprazole Diarrhea High 09/20/2023 Oxycodone Syncope High 08/08/2024 Sulfamethoxazole Rash High 03/16/2018 Sulfamethoxazole-Trimethoprim Rash High 2023 Other Reaction(s): SWELLS Trimethoprim Rash High 03/16/2018 Medications pantoprazole (ProtoNix) 40 MG EC tablet Take 40 mg by mouth 2 times daily. 11/23/19 23 Active ProAir HFA 108 (90 Base) MCG/ACT [...] needed for severe pain. 10 tablet 09/20/20 23 Active loratadine (Claritin) 10 MG tabletIndicati ons:Seasonal [...] 30 mL 12 01/08/20 25 026 Active Diclofenac Sodium 1 % gel APPLY TO THE AFFECTED AREA(s) TWICE DAILY 100 g 3 04/28/20 25 Active gabapentin (Neurontin) 300 MG capsule TAKE 1 CAPSULE BY MOUTH AT BEDTIME 30 capsule 1 07/23/20 25 Active celecoxib (CeleBREX) 100 MG capsuleIndicat ions:Right wrist tendonitis TAKE 1 TABLET BY MOUTH TWICE A DAY WITH FOOD NEEDED FOR PAIN 60 capsule 07/23/20 25 Active B-Complex, Folic Acid, tabletIndicati ons:Vitamin deficiency Place 1 tablet into mouth between cheek and gum Once per day. TAKE 1 TABLET BY MOUTH EVERY DAY 90 tablet 3 07/23/20 25 026 Active loratadine (Claritin) 10 MG tabletIndicati ons:Seasonal allergic reaction TAKE 1 TABLET BY MOUTH EVERY DAY IN THE MORNING 90 tablet 3 07/23/20 25 Active celecoxib (CeleBREX) 100 MG capsuleIndicat ions:Right wrist tendonitis TAKE 1 TABLET BY MOUTH TWICE A DAY WITH FOOD NEEDED FOR PAIN 60 capsule 07/23/20 25 Active loratadine (Claritin) 10 MG tabletIndicati ons:Seasonal allergic reaction TAKE 1 TABLET BY MOUTH EVERY DAY IN THE MORNING 90 tablet 3 07/15/20 24 025 Discontinued(Re order (will not trigger notification to Pharmacy)) B-Complex, Folic Acid, tabletIndicati ons:Vitamin deficiency Take 1 tablet by mouth Once per day. 90 tablet 3 07/15/20 24 025 Discontinued(Re order (will not trigger notification to Pharmacy)) gabapentin (Neurontin) 300 MG capsule Take 1 capsule (300 mg) by mouth at bedtime. 90 capsule 1 02/15/20 25 025 Discontinued(Re order (will not trigger notification to Pharmacy)) celecoxib (CeleBREX) 100 MG capsuleIndicat ions:Right wrist tendonitis TAKE 1 TABLET BY MOUTH TWICE A DAY WITH FOOD NEEDED FOR PAIN 60 capsule 06/26/20 25 025 Discontinued(Re order (will not trigger notification to Pharmacy)) Active Problems Problem Noted Date Diagnosed Date [...] dizziness on Monday, reports was seen in [facility] for w/u, reports had head imaging and [...] Encounters Date Type Department Care Team Description 07/23/2025 Refill [facility] & PEDS [address] [place] [address] Chuy Pabon MD Seasonal allergic reaction; Vitamin deficiency 07/23/2025 Refill [facility] [address] [place] [address] Yasmin Rodriguez MD Right wrist tendonitis; Vitamin deficiency; Seasonal allergic reaction 07/23/2025 Refill [facility]EDS [address] [place] [address] Chuy Pabon MD 07/23/2025 Refill [facility] & PED[facility] [address] [place] [address] Chuy Pabon MD Right wrist tendonitis 07/23/2025 Refill [facility] [address] [place] [address] Chuy Pabon MD Right wrist tendonitis 06/26/2025 Refill [facility] [address] [place] [address] Chuy Pabon MD Right wrist tendonitis from Last 3 Months Immunizations Immunization Administration Dates Next Due Influenza injectable quadriv [...] is your housing situation today? I have denisejackie abreu 09/08/[address] you [...] 72 02/14/2025 1:22 PM EDT Temperature 36.8 C (98.2 F) 02/14/2025 1:22 PM EDT Respiratory Rate 16 02/14/2025 1:22 PM EDT [...] Years) and At-Risk Patients (6 to 49) Years (1 of 2 - PCV) 1998 Depression Screening 12/30/2023 12/30/2022, 12/30/2022 SDOH Screening 12/30/2023 12/30/2022 COVID-19 Vaccine (2023-2 5 season) 2025 Influenza Vaccine (#1) 2025 9, 08/16/2018 Disability Screening 01/08/2026 01/08/2025 Mammogram 02/11/2026 02/12/2024, 12/23/2021 Tobacco Screening 02/17/2026 02/17/2025 Cervical Cancer Screening 10/19/2026 HPV/Cotest 10/19/2026 10/19/2021, 07/31/2018 Pap Smear 10/19/2026 10/19/2021 DTaP/Tdap/Td Vaccines (3 - T d or [...] patient's age to complete this topic Meningococcal B Vaccine Aged Out No l onger eligible based on patient's age to complete [...] HM COLONOSCOPY Routine 01/21/2025 9:23 AM EST BI MAMMOGRAM SCREENING TOMOSYNTHESIS BILATERAL Routine 02/12/2024 12:55 PM EDT THINPREP IMAGING PAP AND HPV MRNA E6/E7 WITH REFLEX TO HPV 16,18/45 Routine 10/19/2021 10:24 AM EST from Last 3 Months or Most Recently Relevant to Health Maintenance Results * Hm Colonoscopy (01/21/2025 9:23 AM EST) us Historical Provider HEALTH MAINTENANCE Final Result * BI Mammogram Screening Tomosynthesis Bilateral (02/12/2024 12:55 PM EDT) Anatomical Region Laterality Modality Breast Bilateral Mammography 02/12/2024 12:5 5 PM EDT Narrative 03/12/2024 5:05 AM EDT [facility] [address] [place] [address] Mammography Report Signed Patient: Alistair Leonard MR#: [id number] : 1980 Acct:[id number] Age/Sex: 43 / F ADM Date: 02/12/24 Loc: HO.MAMMO Attending Dr: Chuy Pabon MD Ordering Physician: Chuy Pabon MD Results: 1 Negative Date of Service: 02/12/24 Follow Up: 1 Year From [facility] ina Mammogram Procedure(s): MM tomosynthesis screening BI Accession Number(s): [id number] cc: Chuy Pabon MD EXAMINATION: MM SCREENING [...] in OV> 03/12/24 0501 DD/ 1255 TD/TT: Thread Tool Grinder Set Up Operator: Procedure Note Donotuseinterpreter, Image - 03/12/2024 [place] [facility] [address] [place] [address] Mammography Report Signed Patient: Alistair Leonard CMR#: [id number] : 1980Acct:[id number] Age/Sex: 43 / FADM Date: 02/12/24 Loc: HO.MAMMO Attending Dr: Chuy Pabon MD Ordering Physician: Chuy Pabon MDResults: 1 Negative Date of Service: 02/12/24Follow Up: 1 Year From Orig inal Mammogram Procedure(s): MM tomosynthesis screening BI Accession Number(s): [id number] cc: Chuy Pabon MD EXAMINATION: MM SCREENING [...] in OV> 03/12/24 0501 DD/ 1255 TD/TT: Thread Tool Grinder Set Up Operator: Chuy Pabon MD IMG BI PROCEDURES Final Res ult * THINPREP TIS PAP AND HPV mRNA E6/E7 REFLEX HPV 16,18/45 (10/19/2021 10:24 AM EST) Clinical Information: Z124 [facility] COMMENT SEE COMMENT [facility] Comment: EXPLANATORY NOTE: The Pap is a screening test for cervical cancer. It is not a diagnostic test and is subject to false negative and false positive results. It is most reliable when a satisfactory sample, regularly obtained, is submitted with relevant clinical findings and history, and when the Pap result is evaluated along with historic and current clinical information. COMMENT: This Pap test has been evaluated with computer assisted technology. [facility] Books Binder: SEE COMMENT [facility] Comment: SXA, CT(ASCP) CT screening location: [place] [address] HPV nRNA E6/E7 Not Detected Not Detected [facility] Comment: Methodology: Reprographics Technician-Mediated Amplification This assay detects E6/E7 viral messenger RNA (mRNA) from 14 high-risk HPV types (16,18,31,33,35,39,45,51,52,56,58,59,66,68). The analytical performance characteristics of this assay have been determined by [employer]. The modifications have not been cleared or approved by the FDA. This assay has been validated pursuant to the CLIA regulations and is used for clinical purposes. For additional information, please refer to http://education.enrich-in/faq/IFJ392a0 (This link if provided for information/ educational purposes only.) Interpretation/Re sult: Negative for intraepithelial lesion or malignancy. [facility] LMP: 09/26/2021 [facility] Prev. BX: NONE GIVEN [facility] Prev. PAP: BEENA/NEG 2018 [facility] SOURCE: Cervix [facility] Statement Of Adequacy: SEE COMMENT [facility] Comment: Satisfactory for evaluation. Endocervical/transformation zone component present. 10/19/2021 10:2 4 AM EST us Tamiko [facility] PATHOLOGY ORDERABLES Final Result [facility] [address] [place] [place] [id number], from Last 3 Months or Most Recently Relevant to Health Maintenance [place] [address] [place] [address] C3 Care Teams Lan/Wan Engineer Relationship Specialty Start Date End Date Chuy Pabon MD [address] [place] [id number] PCP - General Internal Medicine 01/17/17
--- OUTSIDE RECORDS SUMMARY | 2025-08-05 17:48 | XMS_ITS | Encounter Summary ---
Author Organization [employer] Address [address] [facility] 7 [place] [address] Care Team Providers Care Lap Cutter Name Role Phone Chuy Pabon MD Primary Care Provider [phone] Reason for Visit * Reason Onset Date Comments Referral 02/20/2025 Encounter Details Date Type Department Care Team ([facility] st Contact Info) Description 02/20/2025 Telephone [facility] MEDICINE [address] [place] [address] Chuy Pabon MD [address] [place] [address] Referral Social History Tobacco Use Types Packs/Day [...] documented as of this encounter Care Teams Lap Cutter Relationship Specialty Start Date End Date Chuy Pabon MD [address] [place] [address] PCP - General Internal Medicine 01/17/17 documented as of this encounter
--- OUTSIDE RECORDS SUMMARY | 2025-08-05 17:48 | XMS_ITS | Encounter Summary ---
Author Organization [employer] Address [address] [place] [address] 7 [place] [address] Care Team Providers Care Patient Access Representative Name Role Phone Chuy Pabon MD Primary Care Provider [phone] Reason for Visit * Reason Comments Med Refill Encounter Details Date Type Department Care Team ([facility] st Contact Info) Description 06/28/2023 Refill [facility] MEDICINE [address] [place] [address] Chuy Pabon MD [address] [place] [address] Social History Tobacco Use Types Packs/Day Years [...] documented as of this encounter Care Teams Patient Access Representative Relationship Specialty Start Date End Date Chuy Pabon MD [address] [place] [id number] PCP - General Internal Medicine 01/17/17 documented as of this encounter
--- OUTSIDE RECORDS SUMMARY | 2025-08-05 17:48 | XMS_ITS | Encounter Summary ---
Author Organization [employer] Address [address] [place] [address] 7 [place] [address] Care Team Providers Care Rags Laborer Name Role Phone Chuy Pabon MD Primary Care Provider [phone] Encounter Details Date Type Department Care Team ([facility] st Contact Info) Description 01/04/2023 Abstract [facility]EDS [address] [place] [address] Chuy Pabon MD [address] [place] [address] Social History Tobacco Use Types Packs/Day Years [...] documented as of this encounter Care Teams Rags Laborer Relationship Specialty Start Date End Date Chuy Pabon MD [address] [place] [address] PCP - General Internal Medicine 01/17/17 documented as of this encounter
--- OUTSIDE RECORDS SUMMARY | 2025-08-05 17:48 | XMS_ITS | Encounter Summary ---
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 documented in this encounter Plan of Treatment Not on file documented as of this encounter Visit Diagnoses Not on filedocumented in this encounter Additional Health Concerns Assessment Noted Time PHQ-9 Depression Total Score: 2 12/30/19 23 2:19 PM EST documented as of this encounter Care Teams Tow Mate Relationship Specialty Start Date End Date Chuy Pabon MD [address] [place] [address] PCP - General Internal Medicine 01/17/17 documented as of this encounter
--- OUTSIDE RECORDS SUMMARY | 2025-08-05 17:48 | XMS_ITS | Encounter Summary ---
Author Organization [employer] Address [address] [place] [address] 7 [place] [address] Care Team Providers Care Bark Fitter Name Role Phone Chuy Pabon MD Primary Care Provider [phone] Reason for Visit * Reason Onset Date Comments Med Refill 07/23/2025 Encounter Details Date Type Department Care Team ([facility] st Contact Info) Description 07/23/2025 Refill [facility] MED & PEDS [address] [place] [address] Chuy Pabon MD [address] [place] [address] Right wrist tendonitis Social History Tobacco Use Types Packs/Day Years [...] as of this encounter Visit Diagnoses Diagnosis Right wrist tendonitis documented in this encounter Additional Health Concerns Assessment Noted Time PHQ-9 Depression Total Score: 2 12/30/19 23 2:19 PM EST documented as of this encounter Care Teams Bark Fitter Relationship Specialty Start Date End Date Chuy Pabon MD [address] [place] [id number] PCP - General Internal Medicine 01/17/17 documented as of this encounter
--- OUTSIDE RECORDS SUMMARY | 2025-08-05 17:48 | XMS_ITS | Encounter Summary ---
Author Organization [employer] Address [address] [facility] [address] 7[address] [place] [address] Care Team Providers Care Automobile Damage Field Appraiser Name Role Phone Chuy Pabon MD Primary Care Provider [phone] Encounter Details Date Type Department Care Team ([facility] st Contact Info) Description 01/23/2025 Orders Only [facility]EDS [address] [place] [address] ProviderShanice MD Social History Tobacco Use Types [...] documented as of this encounter Care Teams Automobile Damage Field Appraiser Relationship Specialty Start Date End Date Chuy Pabon MD [address] [place] [address] PCP - General Internal Medicine 01/17/17 documented as of this encounter
--- OUTSIDE RECORDS SUMMARY | 2025-08-05 17:48 | XMS_ITS | Encounter Summary ---
Author Organization [employer] Address [address] [facility] 7 [place] [address] Care Team Providers Care Payroll And Benefits Assistant Name Role Phone Chuy Pabon MD Primary Care Provider [phone] Reason for Visit * Reason Onset Date Comments Med Refill 10/13/2023 Encounter Details Date Type Department Care Team ([facility] Contact Info) Description 10/13/2023 Refill [facility] PEDS [address] [place] [address] Debbie Clark MD [address] [place] [address] Social History Tobacco Use Types Packs/Day Years [...] documented as of this encounter Care Teams Payroll And Benefits Assistant Relationship Specialty Start Date End Date Chuy Pabon MD [address] [place] [address] PCP - General Internal Medicine 01/17/17 documented as of this encounter
--- OUTSIDE RECORDS SUMMARY | 2025-08-05 17:48 | XMS_ITS | Encounter Summary ---
Author Organization [employer] Address [address] [place] [address] 7 [place] [address] Care Team Providers Care Missileman Name Role Phone Chuy Pabon MD Primary Care Provider [phone] Reason for Visit * Reason Comments Med Refill Encounter Details Date Type Department Care Team ([facility] Contact Info) Description 12/05/2024 Refill [facility] MED & PEDS [address] [place] [address] Chuy Pabon MD [address] [place] [address] Seasonal allergic reaction Social History Tobacco Use [...] documented as of this encounter Care Teams Missileman Relationship Specialty Start Date End Date Chuy Pabon MD [address] [place] [address] PCP - General Internal Medicine 01/17/17 documented as of this encounter
--- OUTSIDE RECORDS SUMMARY | 2025-08-05 17:48 | XMS_ITS | Encounter Summary ---
Author Organization [employer] Address [address] [place] [address] 7 [place] [address] Care Team Providers Care Data Analytics Analyst Name Role Phone Chuy Pabon MD Primary Care Provider [phone] Reason for Visit * Reason Onset Date Comments Med Refill 09/25/2024 Encounter Details Date Type Department Care Team ([facility] Contact Info) Description 09/25/2024 Refill [facility] PEDS [address] [place] [address] Chuy Pabon MD [address] [place] [address] Seasonal allergic reaction Social History Tobacco Use [...] documented as of this encounter Care Teams Data Analytics Analyst Relationship Specialty Start Date End Date Chuy Pabon MD [address] [place] [address] PCP - General Internal Medicine 01/17/17 documented as of this encounter
--- OUTSIDE RECORDS SUMMARY | 2025-08-05 17:48 | XMS_ITS | Encounter Summary ---
Author Organization [employer] Address [address] [facility] 7 [place] [address] Care Team Providers Care Fur Farmer Name Role Phone Chuy Pabon MD Primary Care Provider [phone] Reason for Visit * Reason Onset Date Comments Referral 03/20/2025 Encounter Details Date Type Department Care Team ([facility] Contact Info) Description 03/20/2025 Telephone [facility] MEDICINE [address] [place] [address] Chuy Pabon MD [address] [place] [address] Referral Social History Tobacco Use Types Packs/Day [...] encounter Miscellaneous Notes * Telephone Encounter - Mary Delcid RN - 03/21/2025 11:07 AM EDT Patient requesting referral for Orthopedic referral. Nerve conduction test complete on 03/04/25 at [facility]. IMPRESSION: Mild bilateral median neuropathy across carpal tunnel. Patient states she is still having significant pain in the neck and shoulder area. Routing to provider for review. * Telephone Encounter - Jessika Jernigan - 03/20/2025 12:14 PM EDT Tc from pt requesting Orthopaedic referral regarding shoulder and neck pain. Pt states had done Nerve Conduction Test on 03/04 at [facility] and continues to have discomfort, which is why she requested the referral. documented in this encounter Plan of Treatment Not on file documented as of this encounter Visit Diagnoses Not on filedocumented in this encounter Additional Health Concerns Assessment Noted Time PHQ-9 Depression Total Score: 2 12/30/19 23 2:19 PM EST documented as of this encounter Care Teams Fur Farmer Relationship Specialty Start Date End Date Chuy Pabon MD [address] [place] [id number] PCP - General Internal Medicine 01/17/17 documented as of this encounter
--- OUTSIDE RECORDS SUMMARY | 2025-08-05 17:48 | XMS_ITS | Encounter Summary ---
Author Organization [employer] Address [address] [place] [address] [place] [address] Care Team Providers Care Hand Launderer Name Role Phone Chuy Pabon MD Primary Care Provider [phone] Reason for Visit * Reason Comments Med Refill Encounter Details Date Type Department Care Team (Late st Contact Info) Description 12/17/2022 Refill [facility] MEDICINE [address] [place], [place] [phone] Chuy Pabon MD [address] [place] [address] Vitamin deficiency (Primary Dx) Social History Tobacco [...] deficiency documented in this encounter Care Teams Hand Launderer Relationship Specialty Start Date End Date Chuy Pabon MD [address] [place] [address] PCP - General Internal Medicine 01/17/17 documented as of this encounter
--- OUTSIDE RECORDS SUMMARY | 2025-08-05 17:48 | XMS_ITS | Encounter Summary ---
Author Organization [employer] Address [address] [facility] 7t [place] [address] Care Team Providers Care Neonatal Pediatric Nurse Name Role Phone Chuy Pabon MD Primary Care Provider [phone] Reason for Visit * Reason Onset Date Comments Med Refill 04/26/2025 Encounter Details Date Type Department Care Team ([facility] st Contact Info) Description 04/26/2025 Refill [facility] [address] [place], [place] [phone] Yasmin Rodriguez MD [address] [place] [address] Social History Tobacco Use Types Packs/Day Years [...] documented as of this encounter Care Teams Neonatal Pediatric Nurse Relationship Specialty Start Date End Date Chuy Pabon MD [address] [place] [address] PCP - General Internal Medicine 01/17/17 documented as of this encounter
--- OUTSIDE RECORDS SUMMARY | 2025-08-05 17:48 | XMS_ITS | Encounter Summary ---
Author Organization [employer] Address [address] [facility] 7 [place] [address] Care Team Providers Care Animal Control Supervisor Name Role Phone Chuy Pabon MD Primary Care Provider [phone] Reason for Visit * Reason Onset Date Comments Appointment Request 11/07/2023 Encounter Details Date Type Department Care Team ([facility] Contact Info) Description 11/07/2023 Telephone [facility] MEDICINE 230 [place] [address] Chuy Pabon MD [address] [place] [address] Appointment Request Social History Tobacco Use Types [...] documented as of this encounter Care Teams Animal Control Supervisor Relationship Specialty Start Date End Date Chuy Pabon MD [address] [place] [id number] PCP - General Internal Medicine 01/17/17 documented as of this encounter
--- OUTSIDE RECORDS SUMMARY | 2025-08-05 17:48 | XMS_ITS | Encounter Summary ---
Author Organization [employer] Address [address] [place] [address] 7 [place] [address] Care Team Providers Care Head Packager Name Role Phone Chuy Pabon MD Primary Care Provider [phone] Reason for Visit * Reason Onset Date Comments Med Refill 07/23/2025 Encounter Details Date Type Department Care Team ([facility] Contact Info) Description 07/23/2025 Refill [facility] CH[facility] MED & PEDS [address] [place] [address] Chuy Pabon MD [address] [place] [address] Seasonal allergic reaction; Vitamin deficiency Social History Tobacco Use Types Packs/Day Years [...] Seasonal allergic reaction Allergic rhinitis, cause unspecified Vitamin deficiency Unspecified vitamin deficiency documented in this encounter Additional Health Concerns Assessment Noted Time PHQ-9 Depression Total Score: 2 12/30/19 23 2:19 PM EST documented as of this encounter Care Teams Head Packager Relationship Specialty Start Date End Date Chuy Pabon MD [address] [place] [address] PCP - General Internal Medicine 01/17/17 documented as of this encounter
--- OUTSIDE RECORDS SUMMARY | 2025-08-05 17:48 | XMS_ITS | Encounter Summary ---
Author Organization [employer] Address [address] [place] [address] 7 [place] [address] Care Team Providers Care Zipper Measurer Name Role Phone Chuy Pabon MD Primary Care Provider [phone] Reason for Visit * Reason Onset Date Comments Med Refill 07/23/2025 Encounter Details Date Type Department Care Team ([facility] Contact Info) Description 07/23/2025 Refill [facility] CHC MED & PEDS [address] [place] [address] Chuy Pbaon MD 505 [place] [address] Social History Tobacco Use Types Packs/Day Years [...] documented as of this encounter Care Teams Zipper Measurer Relationship Specialty Start Date End Date Chuy Pabon MD [address] [place] [address] PCP - General Internal Medicine 01/17/17 documented as of this encounter
--- OUTSIDE RECORDS SUMMARY | 2025-08-05 17:48 | XMS_ITS | Encounter Summary ---
Author Organization [employer] Address [address] [place] [address] 7 [place] [address] Care Team Providers Care Clinical Resource Director Name Role Phone Chuy Pabon MD Primary Care Provider [phone] Reason for Visit * Reason Onset Date Comments Nurse Triage 09/19/2023 Encounter Details Date Type Department Care Team ([facility] Contact Info) Description 09/19/2023 Telephone [facility] CHC MED & PEDS 505 [place] [address] Chuy Pabon MD 505 [place] [address] Nurse Triage Social History Tobacco Use Types [...] and injured her left foot.Pt went to [facility] ED that night and was found to [...] fu and get a referral to an business taxes specialist. Protocol Used: Ankle and Foot Injury (Adult) Protocol-Based Disposition: Pt was seen at [facility] ED on 09/17/23- Pt. Has fu appt on 09/20/[address] [facility]. Will send this note to care coordinators to get ED notes for appt. Video visit offer not recorded Positive Triage Questions: *ankle fracture according to pt. Via Xray at [facility] ED on 09/14/23. * Can't stand [...] Expected Course * Telephone Encounter - Luzmaria Werner - 09/19/2023 3:06 PM EDT Symptom: Foot or Ankle Pain - Not From Injury Outcome: Schedule an urgent appointment (within 1 hour) or talk to a nurse or provider soon Reason: Severe pain now, pt [facility] for a fractured ankle. Pt also requesting anextension for time off of work and a referral to ortho The caller accepted this outcome Please contact pt at [phone] documented in this encounter Plan of Treatment Not on file documented as of this encounter Visit Diagnoses Not on filedocumented in this encounter Additional Health Concerns Assessment Noted Time PHQ-9 Depression Total Score: 2 12/30/19 23 2:19 PM EST documented as of this encounter Care Teams Clinical Resource Director Relationship Specialty Start Date End Date Chuy Pabon MD [address] [place] [address] PCP - General Internal Medicine 01/17/17 documented as of this encounter
--- OUTSIDE RECORDS SUMMARY | 2025-08-05 17:48 | XMS_ITS | Encounter Summary ---
Author Organization [employer] Address [address] [place] [address] 7 [place] [address] Care Team Providers Care Rda Name Role Phone Chuy Pabon MD Primary Care Provider [phone] Encounter Details Date Type Department Care Team (Latest Contact Info) Description 04/15/2021 Abstract [facility] CONVERSIONS Dental, Provider, DDS Social History Tobacco [...] on filedocumented in this encounter Care Teams Rda Relationship Specialty Start Date End Date Chuy Pabon MD [address] [place] [address] PCP - General Internal Medicine 01/17/17 documented as of this encounter
--- OUTSIDE RECORDS SUMMARY | 2025-08-05 17:48 | XMS_ITS | Encounter Summary ---
Author Organization [employer] Address [address] [facility] 7 [place] [address] Care Team Providers Care Manager Visual Name Role Phone Chuy Pabon MD Primary Care Provider [phone] Reason for Visit * Reason Onset Date Comments Nurse Triage 02/10/2025 Encounter Details Date Type Department Care Team ([facility] st Contact Info) Description 02/10/2025 Telephone [facility] MEDICINE 230 [place] [address] Chuy Pabon MD 505 [place] [address] Nurse Triage Social History Tobacco Use Types [...] can be taken. No available apts in [facility] till 02/12/25. Pt requests melanie seen today and is offered to come to the [facility] and accepts this offer. Hours given open today till 8pm. Address [address] [facility] in [place]. Pt agrees with disposition . Home care [...] caller accepted this outcome. Contact pt at [phone] documented in this encounter Plan of Treatment Not on file documented as of this encounter Visit Diagnoses Not on filedocumented in this encounter Additional Health Concerns Assessment Noted Time PHQ-9 Depression Total Score: 2 12/30/19 23 2:19 PM EST documented as of this encounter Care Teams Manager Visual Relationship Specialty Start Date End Date Chuy Pabon MD [address] [place] [address] PCP - General Internal Medicine 01/17/17 documented as of this encounter
--- OUTSIDE RECORDS SUMMARY | 2025-08-05 17:48 | XMS_ITS | Encounter Summary ---
Author Organization [employer] Address [address] [place] [address] [place] [address] Care Team Providers Care Paver Operator Name Role Phone Chuy Pabon MD Primary Care Provider [phone] Encounter Details Date Type Department Care Team ([facility] Contact Info) Description 12/07/2022 [facility] Only [facility] [address] [place], [place] [phone] Chuy Pabon MD [address] [place], [place] [phone] Social History Tobacco Use Types Packs/Day Years [...] on filedocumented in this encounter Care Teams Paver Operator Relationship Specialty Start Date End Date Chuy Pabon MD [address] [place] [address] PCP - General Internal Medicine 01/17/17 documented as of this encounter
--- OUTSIDE RECORDS SUMMARY | 2025-08-05 17:48 | XMS_ITS | Encounter Summary ---
Author Organization [employer] Address [address] [place] [address] [place] [address] Care Team Providers Care High Lift Operator Name Role Phone Chuy Pabon MD Primary Care Provider [phone] Reason for Referral * Consultation (Routine) - Closed Specialty Diagnoses / Procedures Referred By Kellen marroquin Referred To Contact Orthopaedic Surgery Diagnoses Bilateral carpal tunnel syndrome Chuy Pabon MD [address] [place] [address] Phone: tel: fax: [facility] [address] [place] [address] Phone: tel: Referral ID Status Reason Start Date Expiration Date V isits Requested Visits Authorized [id number] Closed Specialty Services Required 03/21/2025 03/21/2026 1 1 Encounter Details Date Type Department Care Team (Late st Contact Info) Description 03/21/2025 Orders Only [facility] CHC MED & PEDS [address] [place] [address] Chuy Pabon MD [address] [place] [address] Bilateral carpal tunnel syndrome (Primary Dx) Social History Tobacco Use Types Packs/Day Years Used Date Smoking Tobacco: Never Passive Smoke Exposure: Never Smokeless Tobacco: Never Alcohol Use Standard Drinks/Week Comments Never 0 (1 standard drink = 0.6 oz pur e alcohol) Depression Answer Date Recorded Patient Health Questionnaire-9 Score 2 12/30/2022 Housing Stability Answer Date Recorded What is your housing situation today? I have denise sing 09/08/[address] you li [...] as of this encounter Plan of Treatment Scheduled Referrals Name Type Priority Associated Diagnoses Order Schedule Referral to Orthopaedic Surgery Outpatient Referral Routine Bilateral carpal tunnel syndrome Expected: 03/21/2025 (Approximate), Expires: 03/21/2026 documented as of this encounter Visit Diagnoses Diagnosis Bilateral carpal tunnel syndrome- Primary Carpal tunnel syndrome documented in this encounter Additional Health Concerns Assessment Noted Time PHQ-9 Depression Total Score: 2 12/30/19 23 2:19 PM EST documented as of this encounter Care Teams High Lift Operator Relationship Specialty Start Date End Date Chuy Pabon MD [address] [place] [address] PCP - General Internal Medicine 01/17/17 documented as of this encounter
== END 2025-08-05 14:37 | disposition home or self-care (01) ==
LOC: HO.HOS 14:02
PROVIDERS: PCP Internal Medicine
DX: G56.03 Carpal tunnel syndrome, bilateral upper limbs (principal)
CPT/HCPCS: 99024

== ENCOUNTER → 2025-08-05 14:02 | Outpatient (BNVA) | payer MEDICAID, SELFPAY | PROVIDERS: PCP Internal Medicine | DX: G56.03 Carpal tunnel syndrome, bilateral upper limbs (principal); Z98.890 Other specified postprocedural states | CPT/HCPCS: 99212 ==

== ENCOUNTER 2025-08-12 15:15 | Outpatient (AMB) | payer MEDICAID, SELFPAY ==
--- NOTE | 2025-08-12 15:19 | A.OFFVIS_ITS ---
Vital Signs 08/12/25 15:31 Height 5 ft 6 in Weight 210 lb BMI 33.9 BP 112/70 Blood Pressure Location Rt brachial Position Sitting Pulse 76 Intake Visit Reasons: Follow up 6 months Intake Note: Patient in office today in follow up of celiac disease. CC: Patient reports doing a lot better since she started avoiding gluten. Semaphore Operator Required: No Accompanied by: Self / Same As Patient Allergies sulfamethoxazole (From Bactrim) Allergy (Severe, Verified 08/12/25 15:40) rash trimethoprim (From Bactrim) Allergy (Severe, Verified 08/12/25 15:40) rash acetaminophen (From Percocet) Adverse Reaction (Severe, Verified 08/12/25 15:40) Fainting naproxen Adverse Reaction (Severe, Verified 08/12/25 15:40) abdominal pain omeprazole Adverse Reaction (Severe, Verified 08/12/25 15:40) Diarrhea oxycodone (From Percocet) Adverse Reaction (Severe, Verified 08/12/25 15:40) Fainting septra Allergy (Severe, Uncoded 08/05/25 14:21) rash HPI HPI Follow up 6 months: Details: Assessment & Plan (1) Celiac disease: Code(s): K90.0 - Celiac disease Category: Medical (2) GERD (gastroesophageal reflux disease): Code(s): K21.9 - Gastro-esophageal reflux disease without esophagitis Category: Medical (3) Cow's milk allergy: Code(s): Z91.011 - Allergy to milk products Category: Medical Plan Her diarrhea is not as bad as she tries to be gluten free and now she will see how avoiding cow's milk helps as well. She tells me that her mother then told her you could not drink much milk as a baby,she had to water it all down! She also notes that stress causes her bloating. She thought that drinking lactaid milk would help, but I explain that this does not help in th eface of a milk allergy. She will consider soy, oat or almond milk. She is also water fasting on Sundays and trying to relax and meditate. ROV 6 mos. TODAYS VISIT [facility] Medical History (Updated 06/19/25 @ 11:49 by Saumya Aquino RN) Gastroenteritis Asthma Celiac disease GERD (gastroesophageal reflux disease) Heart murmur Migraine Surgical History History of esophagogastroduodenoscopy (EGD) Hx of dilation and curettage Hx of tubal ligation History of ear surgery Family History Family/Other Breast cancer Maternal Grandmother Ovarian cancer Father Heart abnormality Social History (Updated 05/26/25 @ 14:39 by CRISTINA Gilman) Are you a primary neonatal critical care nurse to a significant other at home: No Do you presently have visiting nurse or other home services: No Alcohol intake: never Patient Tobacco Use Status: Never used Tobacco Current occupational status: employed 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 Review of Systems Const Denies fatigue, Denies fever(s), Denies night sweats, Denies poor appetite and Denies weight loss ENT Reports Normal hearing present, Denies dental pain, Denies dysphagia, Denies hearing loss, Denies mouth pain, Denies odynophagia, Denies throat swelling, Denies tongue swelling and Reports other (Dentition adequate) Card Reports no additional complaints Resp Reports no additional complaints GI Details: Denies abdominal pain, Denies melena, Reports bloating, Denies hematochezia, Denies constipation, Denies GI cramping, Denies dysphagia, Denies excessive flatus, Denies early satiety, Denies heartburn, Reports diarrhea, Denies nausea, Denies odynophagia, Denies vomiting and Denies hematemesis Skin/Breast Denies pruritus, Denies lesions, Denies rash and Denies jaundice Neuro Reports Normal hearing present and Denies Abnormal speech present Endo Denies fatigue Aller/Immun Denies throat swelling and Denies tongue swelling Physical Exam Vital Signs: Last Vital Signs Pulse 76 08/12/25 15:31 BP 112/70 08/12/25 15:31 BMI result Body Mass Index 33.9 Const General: cooperative, no acute distress, well developed and well groomed Nutritional Appearance: well nourished and obese Orientation/consciousness: oriented to person, oriented to place and oriented to time Limitations: No language barrier HEENT Head: Yes normocephalic and Yes atraumatic Eyes General: appearance normal, both eyes and all related structures Pupils: Equal, round and reactive pupils present Neck Neck: Yes normal visual inspection and Yes no lymphadenopathy Thyroid: Thyroid normal Resp Effort & Inspection: normal respiratory effort and able to speak in complete sentences Auscultation: clear to auscultation bilaterally Cardio Rate: regular rate Rhythm: regular rhythm Heart sounds: Normal, physiologic split S2 sound present Peripheral pulses: radial pulses present and posterior tibial pulses present GI Inspection: No distended, No Abdominal panniculus present and Yes obesity Palpation (GI): Soft to palpation, nontender, no guarding, not rigid and No hepatosplenomegaly present Percussion: Yes normal to percussion Auscultation: normal bowel sounds Rectal Exam - Female: deferred Skin General skin exam: no rashes or lesions noted, turgor normal, skin not dry, no jaundice, No spider nevi and no striae Rashes: no rashes Nails: normal Neuro General: oriented to person, oriented to place and oriented to time Cranial nerves: Yes Equal, round and reactive pupils present and Yes Normal hearing present Speech: No Abnormal speech present Extrem General: Yes normal to inspection, No clubbing, No cyanosis and No edema Psych Appearance: grossly normal and well kempt Mental Status: mental status grossly normal Speech and movement: Normal speech and movement present Affect: normal affect Attitude: cooperative Thought process: Normal thought process present and not confabulating Thought content: Normal thought content present Insight: Good insight present (Psych) Judgement: Good judgement present (Psych) Assessment & Plan Assessment & Plan (1) GERD (gastroesophageal reflux disease): Code(s): K21.9 - Gastro-esophageal reflux disease without esophagitis Category: Medical (2) Celiac disease: Code(s): K90.0 - Celiac disease Category: Medical (3) Diarrhea: Comment: She may have been in response to omeprazole as well as some other variables Code(s): R19.7 - Diarrhea, unspecified Category: Medical (4) Cow's milk allergy: Code(s): Z91.011 - Allergy to milk products Category: Medical Plan SHE IS ON PANTOPRAZOLE 40 MG TWICE A DAY. - The patient is a 45-year-old female presenting with dietary management for a milk allergy, Celiac Disease and GERD. - Diagnosed with Celiac Disease, the patient has since made significant dietary adjustments, including attending a gluten-free convention two weeks post-diagnosis and embracing support groups, providing improvement in symptoms. - She has and outright allergy to cow's milk and reports difficulty avoiding milk, although she achieves about 70% success. - Currently taking pantoprazole effectively for managing gastroesophageal reflux symptoms. - The patient has noted a marked improvement in her general gastrointestinal health and reduction in associated symptoms as a result of the dietary and medical management. Return office visit in 6 months Medications: Refilled pantoprazole 40 mg PO BID 180 tabs 0RF 90 days K21.9 - Gastro-esophageal reflux disease without esophagitis Coding Level of Care Code Est Pt Level 3 (67494) Diagnoses GERD (gastroesophageal reflux disease) K21.9 Celiac disease K90.0 Diarrhea R19.7 Cow's milk allergy Z91.011
[2025-08-12 15:31] VITALS: BP 112/70; PULSE 76; BMI 33.9
--- OUTSIDE RECORDS SUMMARY | 2025-08-12 18:12 | XMS_ITS | Encounter Summary ---
Author Organization [employer] Address [address] [place] [address] 7 [place] [address] Care Team Providers Care Manager Sterile Processing Name Role Phone Chuy Pabon MD Primary Care Provider [phone] Reason for Visit * Reason Comments Med Refill Encounter Details Date Type Department Care Team ([facility] st Contact Info) Description 06/28/2023 Refill [facility] MEDICINE [address] [place] [address] Chuy Pabon MD [address] [place] [address] Social History Tobacco Use Types Packs/Day Years [...] as of this encounter Care Teams Manager Sterile Processing Relationship Specialty Start Date End Date Chuy Pabon MD [address] [place] [address] PCP - General Internal Medicine 01/17/17 documented as of this encounter
--- OUTSIDE RECORDS SUMMARY | 2025-08-12 18:12 | XMS_ITS | Clinical Summary ---
Author Organization [employer] Address [address] [place] [address] 7t [place] [address] Care Team Providers Care Jacquard Twine Polisher Operator Name Role Phone Chuy Pabon MD Primary Care Provider +1- [phone] Allergies Active Allergy Reactions Criticality Noted Date [...] Type Department Care Team Description 07/23/2025 Refill [facility] MED & PEDS [address] [place] [address] Chuy Pabon MD Seasonal allergic reaction; Vitamin deficiency 07/23/2025 Refill [facility] WALK-IN CENTER [address] [place] [address] Yasmin Rodriguez MD Right wrist tendonitis; Vitamin deficiency; Seasonal allergic reaction 07/23/2025 Refill [facility] CHC MED & PEDS [address] [place] [address] Chuy Pabon MD 07/23/2025 Refill [facility] MED & PEDS [address] [place] [address] Chuy Pabon MD Right wrist tendonitis 07/23/2025 Refill [facility] MEDICINE [address] [place] [address] Chuy Pabon MD Right wrist tendonitis 06/26/2025 Refill [facility] MEDICINE [address] [place] [address] Chuy Pabon MD Right wrist tendonitis from [...] PM EDT Narrative 03/12/2024 5:05 AM EDT [facility]'s [address] [place] [address] Mammography Report Signed Patient: Alistair Leonard MR#: [id number] : 1980 Acct:[id number] Age/Sex: 43 / F ADM Date: 02/12/24 Loc: HO.MAMMO Attending Dr: Chuy Pabon MD Ordering Physician: Chuy Pabon MD Results: 1 Negative Date of Service: 02/12/24 Follow Up: 1 Year From [facility] ina Mammogram Procedure(s): MM tomosynthesis screening BI Accession Number(s): [id number] cc: Chuy Pabon MD EXAMINATION: MM SCREENING [...] in OV> 03/12/24 0501 DD/ 1255 TD/TT: Hand Candy Dipper: Procedure Note Donotuseinterpreter, Image - 03/12/2024 [facility] [address] [place] [address] Mammography Report Signed Patient: Alistair Leonard CMR#: [id number] : 1980Acct:[id number] Age/Sex: 43 / FADM Date: 02/12/24 Loc: HO.MAMMO Attending Dr: Chuy Pabon MD Ordering Physician: Chuy Pabon MDResults: 1 Negative Date of Service: 02/12/24Follow Up: 1 Year From Orig inal Mammogram Procedure(s): MM tomosynthesis screening BI Accession Number(s): [id number] cc: Chuy Pabon MD EXAMINATION: MM SCREENING [...] in OV> 03/12/24 0501 DD/ 1255 TD/TT: Hand Candy Dipper: Chuy Pabon MD IMG BI PROCEDURES Final Res ult * THINPREP TIS PAP AND HPV mRNA E6/E7 REFLEX HPV 16,18/45 (10/19/2021 10:24 AM EST) Clinical Information: Z124 [facility] COMMENT SEE COMMENT FOUNDATI ON [...] has been evaluated with computer assisted technology. [facility] City Administrator: SEE COMMENT [facility] Comment: SXA, CT(ASCP) CT screening location: [place] [address] HPV nRNA E6/E7 Not Detected Not Detected [facility] Comment: Methodology: [employer] Tuber Machine Operator-Mediated Amplification This assay detects E6/E7 viral messenger RNA (mRNA) from 14 high-risk HPV types (16,18,31,33,35,39,45,51,52,56,58,59,66,68). The analytical performance characteristics of this assay have been determined by [employer]. The modifications have not been cleared or approved by the FDA. This assay has been validated pursuant to the CLIA regulations and is used for clinical purposes. For additional information, please refer to http://education.FREEjit/faq/XIK618e0 (This link if provided for information/ educational purposes only.) Interpretation/Re sult: Negative for intraepithelial lesion or malignancy. [facility] LMP: 09/26/2021 [facility] Prev. BX: NONE GIVEN [facility] Prev. PAP: BEENA/NEG 2018 [facility] SOURCE: Cervix [facility] Statement Of Adequacy: SEE COMMENT [facility] Comment: Satisfactory for evaluation. Endocervical/transformation zone component present. 10/19/2021 10:2 4 AM EST us Tamiko [facility] PATHOLOGY ORDERABLES Final Result [facility] [address] [id number], from Last 3 Months or Most Recently Relevant to Health Maintenance [place] [address] [place] [address] C3 Care Teams Jacquard Twine Polisher Operator Relationship Specialty Start Date End Date Chuy Pabon MD [address] [place] [address] PCP - General Internal Medicine 01/17/17
--- OUTSIDE RECORDS SUMMARY | 2025-08-12 18:12 | XMS_ITS | Encounter Summary ---
Author Organization [employer] Address [address] [facility] 7 [place] [address] Care Team Providers Care Warp Dyeing Tender Name Role Phone Chuy Pabon MD Primary Care Provider [phone] Reason for Visit * Reason Onset Date Comments Letter for School/Work 10/16/2023 Encounter Details Date Type Department Care Team ([facility] Contact Info) Description 10/16/2023 Telephone [facility] MEDICINE 230 [place] [address] Chuy Pabon MD 505 [place] [address] Letter for School/Work Social History Tobacco Use [...] require physical therapy 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 documented in this encounter Plan of Treatment Not on file documented as of this encounter Visit Diagnoses Not on filedocumented in this encounter Additional Health Concerns Assessment Noted Time PHQ-9 Depression Total Score: 2 12/30/19 23 2:19 PM EST documented as of this encounter Care Teams Warp Dyeing Tender Relationship Specialty Start Date End Date Chuy Pabon MD 505 [place] [address] PCP - General Internal Medicine 01/17/17 documented as of this encounter
--- OUTSIDE RECORDS SUMMARY | 2025-08-12 18:12 | XMS_ITS | Encounter Summary ---
Author Organization [employer] Address [address] [place] [address] 7 [place] [address] Care Team Providers Care Explosive Operator Bomb Name Role Phone Chyu Pabon MD Primary Care Provider [phone]- [phone] Encounter Details Date Type Department Care Team (Latest Contact Info) Description 04/15/2021 Abstract [facility] CONVERSIONS Dental, Provider, DDS Social History Tobacco [...] on filedocumented in this encounter Care Teams Explosive Operator Bomb Relationship Specialty Start Date End Date Chuy Pabon MD 505 [place] [address] PCP - General Internal Medicine 01/17/17 documented as of this encounter
--- OUTSIDE RECORDS SUMMARY | 2025-08-12 18:12 | XMS_ITS | Encounter Summary ---
Author Organization [employer] Address [address] [facility] [address] 7t [place] [address] Care Team Providers Care Bounty Trapper Name Role Phone Chuy Pabon MD Primary Care Provider [phone] Encounter Details Date Type Department Care Team ([facility] st Contact Info) Description 01/23/2025 Orders Only [facility] CHC MED & PEDS 505 [place] [address] ProviderShanice MD Social History Tobacco Use Types [...] documented as of this encounter Care Teams Bounty Trapper Relationship Specialty Start Date End Date Chuy Pabon MD [address] [place] [address] PCP - General Internal Medicine 01/17/17 documented as of this encounter
--- OUTSIDE RECORDS SUMMARY | 2025-08-12 18:12 | XMS_ITS | Encounter Summary ---
Author Organization [employer] Address [address] [place] [address] [place] [address] Care Team Providers Care Mathematics Academic Chair Name Role Phone Chuy Pabon MD Primary Care Provider [phone]- [phone] Encounter Details Date Type Department Care Team ([facility] Contact Info) Description 12/07/2022 [facility] Only [facility] 230 [place], [place] [phone] Chuy Pabon MD 505 [place], [place] [phone] Social History Tobacco Use Types Packs/Day Years [...] on filedocumented in this encounter Care Teams Mathematics Academic Chair Relationship Specialty Start Date End Date Cuhy Pabon MD 505 [place] [address] PCP - General Internal Medicine 01/17/17 documented as of this encounter
--- OUTSIDE RECORDS SUMMARY | 2025-08-12 18:12 | XMS_ITS | Encounter Summary ---
Author Organization [employer] Address 75 [facility] 7 [place] [address] Care Team Providers Care Pile Driving Technician Name Role Phone Chuy Pabon MD Primary Care Provider [phone] Reason for Visit * Reason Onset Date Comments Med Refill 10/13/2023 Encounter Details Date Type Department Care Team ([facility] Contact Info) Description 10/13/2023 Refill [facility] CHC MED & PEDS 505 [place] [address] Debbie Clark MD 505 [place] [address] Social History Tobacco Use Types Packs/Day Years [...] documented as of this encounter Care Teams Pile Driving Technician Relationship Specialty Start Date End Date Chuy Pabon MD 505 [place] [address] PCP - General Internal Medicine 01/17/17 documented as of this encounter
--- OUTSIDE RECORDS SUMMARY | 2025-08-12 18:12 | XMS_ITS | Encounter Summary ---
Author Organization [employer] Address 75 [facility] 7 [place] [address] Care Team Providers Care Infrastructure Technician Name Role Phone Chuy Pabon MD Primary Care Provider [phone] Reason for Visit * Reason Onset Date Comments Referral 02/20/2025 Encounter Details Date Type Department Care Team ([facility] st Contact Info) Description 02/20/2025 Telephone [facility] MEDICINE 230 [place] [address] Chuy Pabon MD 505 [place] [address] Referral Social History Tobacco Use Types Packs/Day [...] documented as of this encounter Care Teams Infrastructure Technician Relationship Specialty Start Date End Date Chuy Pabon MD [address] [place] [address] PCP - General Internal Medicine 01/17/17 documented as of this encounter
--- OUTSIDE RECORDS SUMMARY | 2025-08-12 18:12 | XMS_ITS | Encounter Summary ---
Author Organization [employer] Address [address] [place] [address] 7 [place] [address] Care Team Providers Care Billet Cutter Name Role Phone Chuy Pabon MD Primary Care Provider [phone] Reason for Visit * Reason Onset Date Comments Med Refill 07/23/2025 Encounter Details Date Type Department Care Team ([facility] Contact Info) Description 07/23/2025 Refill [facility] CHC MED & PEDS [address] [place] [address] Chuy Pabon MD 505 [place] [address] Social History Tobacco Use Types Packs/Day Years [...] documented as of this encounter Care Teams Billet Cutter Relationship Specialty Start Date End Date Chuy Pabon MD 505 [place] [address] PCP - General Internal Medicine 01/17/17 documented as of this encounter
--- OUTSIDE RECORDS SUMMARY | 2025-08-12 18:12 | XMS_ITS | Encounter Summary ---
Author Organization [employer] Address 75 [facility] 7 [place] [address] Care Team Providers Care Planimeter Operator Name Role Phone Chuy Pabon MD Primary Care Provider [phone] Reason for Visit * Reason Onset Date Comments Appointment Request 11/07/2023 Encounter Details Date Type Department Care Team ([facility] Contact Info) Description 11/07/2023 Telephone [facility] MEDICINE 230 [place] [address] Chuy Pabon MD 505 [place] [address] Appointment Request Social History Tobacco Use Types [...] documented as of this encounter Care Teams Planimeter Operator Relationship Specialty Start Date End Date Chuy Pabon MD [address] [place] [address] PCP - General Internal Medicine 01/17/17 documented as of this encounter
--- OUTSIDE RECORDS SUMMARY | 2025-08-12 18:12 | XMS_ITS | Encounter Summary ---
Author Organization [employer] Address [address] [place] [address] 7 [place] [address] Care Team Providers Care Warehouse Order Selector Name Role Phone Chuy Pabon MD Primary Care Provider [phone] Reason for Visit * Reason Comments Med Refill Encounter Details Date Type Department Care Team ([facility] Contact Info) Description 12/05/2024 Refill [facility] CHC MED & PEDS 505 [place] [address] Chuy Pabon MD 505 [place] [address] Seasonal allergic reaction Social History Tobacco Use [...] documented as of this encounter Care Teams Warehouse Order Selector Relationship Specialty Start Date End Date Chuy Pabon MD 505 [place] [address] PCP - General Internal Medicine 01/17/17 documented as of this encounter
--- OUTSIDE RECORDS SUMMARY | 2025-08-12 18:12 | XMS_ITS | Encounter Summary ---
Author Organization [employer] Address [address] [place] [address] 7 [place] [address] Care Team Providers Care Live Study Manager Name Role Phone Chuy Pabon MD Primary Care Provider [phone] Reason for Visit * Reason Onset Date Comments Med Refill 07/23/2025 Encounter Details Date Type Department Care Team ([facility] st Contact Info) Description 07/23/2025 Refill [facility] CHC MED & PEDS 505 [place] [address] Chuy Pabon MD 505 [place] [address] Right wrist tendonitis Social History Tobacco Use [...] documented as of this encounter Care Teams Live Study Manager Relationship Specialty Start Date End Date Chuy Pabon MD [address] [place] [address] PCP - General Internal Medicine 01/17/17 documented as of this encounter
--- OUTSIDE RECORDS SUMMARY | 2025-08-12 18:12 | XMS_ITS | Encounter Summary ---
Author Organization [employer] Address 75 [facility] 7 [place] [address] Care Team Providers Care Supply Chain Technician Name Role Phone Chuy Pabon MD Primary Care Provider [phone] Reason for Visit * Reason Onset Date Comments Nurse Triage 02/10/2025 Encounter Details Date Type Department Care Team ([facility] st Contact Info) Description 02/10/2025 Telephone [facility] MEDICINE 230 [place] [address] Chuy Pabon MD 505 [place] [address] Nurse Triage Social History Tobacco Use Types [...] can be taken. No available apts in [facility] till 02/12/25. Pt requests melanie seen today and is offered to come to the [facility] and accepts this offer. Hours given open today till 8pm. Address [address] [facility] in [place]. Pt agrees with disposition . Home care [...] caller accepted this outcome. Contact pt at [phone] documented in this encounter Plan of Treatment Not on file documented as of this encounter Visit Diagnoses Not on filedocumented in this encounter Additional Health Concerns Assessment Noted Time PHQ-9 Depression Total Score: 2 12/30/19 23 2:19 PM EST documented as of this encounter Care Teams Supply Chain Technician Relationship Specialty Start Date End Date Chuy Pabon MD [address] [place] [address] PCP - General Internal Medicine 01/17/17 documented as of this encounter
--- OUTSIDE RECORDS SUMMARY | 2025-08-12 18:12 | XMS_ITS | Encounter Summary ---
Author Organization [employer] Address [address] [place] [address] [place] [address] Care Team Providers Care Curriculum And Instruction Specialist Name Role Phone Chuy Pabon MD Primary Care Provider [phone]- [phone] Reason for Visit * Reason Comments Med Refill Encounter Details Date Type Department Care Team (Late st Contact Info) Description 12/17/2022 Refill [facility] MEDICINE [address] [place], [place] [phone] Chuy Pabon MD 505 [place] [address] Vitamin deficiency (Primary Dx) Social History Tobacco [...] deficiency documented in this encounter Care Teams Curriculum And Instruction Specialist Relationship Specialty Start Date End Date Chuy Pabon MD 505 [place] [address] PCP - General Internal Medicine 01/17/17 documented as of this encounter
--- OUTSIDE RECORDS SUMMARY | 2025-08-12 18:12 | XMS_ITS | Encounter Summary ---
Author Organization [employer] Address [address] [place] [address] 7 [place] [address] Care Team Providers Care Food Service Agent Name Role Phone Chuy Pabon MD Primary Care Provider [phone] Reason for Visit * Reason Onset Date Comments Nurse Triage 09/19/2023 Encounter Details Date Type Department Care Team ([facility] Contact Info) Description 09/19/[address] [facility] CHC MED & PEDS [address] [place] [address] Chuy Pabon MD 505 [place] [address] Nurse Triage Social History Tobacco Use Types [...] and injured her left foot.Pt went to [facility] ED that night and was found to [...] fu and get a referral to an technical support specialist. Protocol Used: Ankle and Foot Injury (Adult) Protocol-Based Disposition: Pt was seen at [facility] ED on 09/17/23- Pt. Has fu appt on 09/20/[address] [facility]. Will send this note to care coordinators to get ED notes for appt. Video visit offer not recorded Positive Triage Questions: *ankle fracture according to pt. Via Xray at [facility] ED on 09/14/23. * Can't [...] Severe pain now, pt was seen at [facility] on 09/17 for a fractured ankle. Pt also requesting anextension for time off of work and a referral to ortho The caller accepted this outcome Please contact pt at [phone] documented in this encounter Plan of Treatment Not on file documented as of this encounter Visit Diagnoses Not on filedocumented in this encounter Additional Health Concerns Assessment Noted Time PHQ-9 Depression Total Score: 2 12/30/19 23 2:19 PM EST documented as of this encounter Care Teams Food Service Agent Relationship Specialty Start Date End Date Chuy Pabon MD [address] [place] [address] PCP - General Internal Medicine 01/17/17 documented as of this encounter
--- OUTSIDE RECORDS SUMMARY | 2025-08-12 18:12 | XMS_ITS | Encounter Summary ---
Author Organization [employer] Address [address] [place] [address] 7 [place] [address] Care Team Providers Care Brickmason Contractor Name Role Phone Chuy Pabon MD Primary Care Provider [phone] Reason for Visit * Reason Onset Date Comments Med Refill 07/23/2025 Encounter Details Date Type Department Care Team ([facility] Contact Info) Description 07/23/2025 Refill [facility] CHC MED & PEDS [address] [place] [address] Chuy Pabon MD 505 [place] [address] Seasonal allergic reaction; Vitamin deficiency Social History [...] documented as of this encounter Care Teams Brickmason Contractor Relationship Specialty Start Date End Date Chuy Pabon MD [address] [place] [address] PCP - General Internal Medicine 01/17/17 documented as of this encounter
--- OUTSIDE RECORDS SUMMARY | 2025-08-12 18:12 | XMS_ITS | Encounter Summary ---
Author Organization [employer] Address [address] [place] [address] 7 [place] [address] Care Team Providers Care Supervisor Force Adjustment Name Role Phone Chuy Pabon MD Primary Care Provider [phone] Encounter Details Date Type Department Care Team ([facility] st Contact Info) Description 01/04/2023 Abstract [facility] CHC MED & PEDS 505 [place] [address] Chuy Pabon MD 505 [place] [address] Social History Tobacco Use Types Packs/Day Years [...] documented as of this encounter Care Teams Supervisor Force Adjustment Relationship Specialty Start Date End Date Chuy Pabon MD [address] [place] [address] PCP - General Internal Medicine 01/17/17 documented as of this encounter
--- OUTSIDE RECORDS SUMMARY | 2025-08-12 18:13 | XMS_ITS | Encounter Summary ---
Author Organization [employer] Address [address] [facility] 7 [place] [address] Care Team Providers Care Local Hazmat Driver Name Role Phone Chuy Pabon MD Primary Care Provider [phone] Reason for Visit * Reason Onset Date Comments Referral 03/20/2025 Encounter Details Date Type Department Care Team ([facility] Contact Info) Description 03/20/2025 Telephone [facility] MEDICINE 230 [place] [address] Chuy Pabon MD 505 [place] [address] Referral Social History Tobacco Use Types Packs/Day [...] Nerve conduction test complete on 03/04/25 at [facility]. IMPRESSION: Mild bilateral median neuropathy across carpal tunnel. Patient states she is still having significant pain in the neck and shoulder area. Routing to provider for review. * Telephone Encounter - Jessika Jernigan - 03/20/2025 12:14 PM EDT Tc from pt requesting Orthopaedic referral regarding shoulder and neck pain. Pt states had done Nerve Conduction Test on 03/04 at [facility] and continues to have discomfort, which is why she requested the referral. documented in this encounter Plan of Treatment Not on file documented as of this encounter Visit Diagnoses Not on filedocumented in this encounter Additional Health Concerns Assessment Noted Time PHQ-9 Depression Total Score: 2 12/30/19 23 2:19 PM EST documented as of this encounter Care Teams Local Hazmat Driver Relationship Specialty Start Date End Date Chuy Pabon MD [address] [place] [address] PCP - General Internal Medicine 01/17/17 documented as of this encounter
--- OUTSIDE RECORDS SUMMARY | 2025-08-12 18:13 | XMS_ITS | Encounter Summary ---
Author Organization [employer] Address [address] [place] [address] 7 [place] [address] Care Team Providers Care Cash Posting Clerk Name Role Phone Chuy Pabon MD Primary Care Provider [phone] Reason for Visit * Reason Onset Date Comments Med Refill 09/25/2024 Encounter Details Date Type Department Care Team ([facility] Contact Info) Description 09/25/2024 Refill [facility] CHC MED & PEDS [address] [place] [address] Cuhy Pabon MD 505 [place] [address] Seasonal allergic reaction Social History Tobacco Use [...] documented as of this encounter Care Teams Cash Posting Clerk Relationship Specialty Start Date End Date Chuy Pabon MD [address] [place] [address] PCP - General Internal Medicine 01/17/17 documented as of this encounter
--- OUTSIDE RECORDS SUMMARY | 2025-08-12 18:13 | XMS_ITS | Encounter Summary ---
Author Organization [employer] Address [address] [place] [address] [place] [address] Care Team Providers Care Crozer Operator Name Role Phone Chuy Pabon MD Primary Care Provider [phone] Reason for Referral * Consultation (Routine) - Closed Specialty Diagnoses / Procedures Referred By Kellen marroquin Referred To Contact Orthopaedic Surgery Diagnoses Bilateral carpal tunnel syndrome Chuy Pabon MD [address] [place] [address] Phone: tel: fax: [facility] [address] [place] [address] Phone: tel: Referral ID Status Reason Start Date Expiration Date V isits Requested Visits Authorized [id number] Closed Specialty Services Required 03/21/2025 03/21/2026 1 1 Encounter Details Date Type Department Care Team (Late st Contact Info) Description 03/21/2025 Orders Only [facility] CHC MED & PEDS 505 [place] [address] Chuy Pabon MD 505 [place] [address] Bilateral carpal tunnel syndrome (Primary Dx) Social [...] documented as of this encounter Care Teams Crozer Operator Relationship Specialty Start Date End Date Chuy Pabon MD [address] [place] [address] PCP - General Internal Medicine 01/17/17 documented as of this encounter
--- OUTSIDE RECORDS SUMMARY | 2025-08-12 18:13 | XMS_ITS | Encounter Summary ---
Author Organization [employer] Address [address] [place] [address] Care Team Providers Care Water Treatment Technician Name Role Phone hCuy Pabon MD Primary Care Provider [phone] Reason for Visit * Reason Onset Date Comments Med Refill 04/26/2025 Encounter Details Date Type Department Care Team ([facility] st Contact Info) Description 04/26/2025 Refill [facility] [address] [place], [place] [id number] Yasmin Rodriguez MD [address] [place] [address] Social History Tobacco Use Types Packs/Day Years [...] documented as of this encounter Care Teams Water Treatment Technician Relationship Specialty Start Date End Date Chuy Pabon MD [address] [place] [address] PCP - General Internal Medicine 01/17/17 documented as of this encounter
== END 2025-08-12 17:19 | disposition home or self-care (01) ==
LOC: HO.HGI 15:16
PROVIDERS: PCP Internal Medicine; Visit Provider Nurse Practitioner
DX: K21.9 Gastro-esophageal reflux disease without esophagitis (principal); K90.0 Celiac disease; R19.7 Diarrhea, unspecified; Z91.011 Allergy to milk products
CPT/HCPCS: 99213

== ENCOUNTER → 2025-08-12 15:15 | Outpatient (BNVA) | payer MEDICAID, SELFPAY | PROVIDERS: PCP Internal Medicine; Visit Provider Nurse Practitioner | DX: K21.9 Gastro-esophageal reflux disease without esophagitis (principal); K90.0 Celiac disease; R19.7 Diarrhea, unspecified; Z91.011 Allergy to milk products | CPT/HCPCS: 99212 ==

== ENCOUNTER 2025-09-08 14:13 | Outpatient (RCR) | payer MEDICAID, SELFPAY ==
--- NOTE | 2025-08-20 13:51 | MHC.OT.EP ---
[facility] Office [address] [phone] F: [phone] F: [phone] Occupational Therapy Plan of Care Patient Name: Alistair Arnett Date of Evaluation: 08/20/25 Diagnosis: S/P L CTR Pain Location: L VOLAR WRIST : BURNING 4-5/10 AT REST 7/10 WITH GRIPPING, GENERAL HEAVY USE Pain Score: 4-5/10 Pain Scale Used: Numeric (0 - 10) Aggravating Factors: HEAVY LIFTING, REPETITIVE GRIPPING Alleviating Factors: SOAKING IN WARM WATER Assessment: MS ARNETT IS 8.5 WEEKS S/P CTR WITH DR JEFFERS (DOS 06/19/25). SHE REPORTS HESITANCE WITH USE OF LUE WITH HEAVY HOUSEHOLD TASKS, LIFTING HEAVY WEIGHTS AND WORK RELATED TASKS. 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 A 50% LIMITATION IS REPORTED PER THE QUICK DASH ASSESSMENT. SKILLED OT IS WARRANTED TO ADDRESS DESENSITIZATION, STRENGTHENING, SAFE RETURN TO IADLs AND Pt EDUCATION. Frequency and Duration: The patient will be seen 1X/WEEK FOR 4 WEEKS Short Term Goals: SEE BELOW Retirement Goals: IND HEP TOLERATE >8 MINS OF ROUGH, VIBRATION TEXTURES TO L VOLAR WRIST LIFT >20 POUNDS WITH <2/10 PAIN FOR SIMULATED IADLs, FLOOR TO WAIST L GRASP >40 POUNDS Treatment Plan: Therapeutic Exercise Therapeutic Activity Home Exercise Program Splinting Neuro Re-ed Patient Education Desensitization/Sensory Re-ed Edema Control ADL Training Ultrasound Paraffin Fluidotherapy MHP Cold Packs Joint Mobilization Soft Tissue Mobilization Kinesiotaping Other (see comments) Electronically Signed By: WOODROW CHING OTR/L Please Sign and return to therapist. Thank you once again for your referral.
--- NOTE | 2025-09-08 14:56 | MHC.OT.DC ---
[facility] Office [address] [facility] [phone] F: [phone] F: [phone] Occupational Therapy Discharge Note Patient Name: Alistair Arnett Provider: Jason Schmitt Diagnosis: S/P L CTR Date of Surgery: 06/19/25 Date of Evaluation: 08/20/25 Date of Discharge: 09/08/25 Treatments to Date: 4 Discharge Status: Achieved Goals Improved Function Independent with HEP Discharge Summary: MS ARNETT HAS MET HER OT GOALS. SHE HAS CONTINUED TO DEMONSTRATE MOTIVATION AND FOLLOW THROUGH WITH HER HEP. READY TO TRANSITION TO A HOME BASED PROGRAM. Electronically Signed By: WOODROW CHING OTR/L Reviewed/agree with student documentation: N/A Therapist: Please Sign and return to therapist, thank you for your referral.
== END 2025-09-10 14:50 | disposition home or self-care (01) ==
LOC: HO.OT 14:13
PROVIDERS: PCP Internal Medicine
DX: G56.03 Carpal tunnel syndrome, bilateral upper limbs (principal)
CPT/HCPCS: 97110; 97140; 97165